=== PATIENT | male | born 1955 | race Caucasian/White ===

== ENCOUNTER 2017-02-11 12:50 | Outpatient (CLI) | payer OTHER ==
--- NOTE | 2017-02-11 13:20 | RAD ---
CHEST 2 VIEWS: COMPARISON: 02/09/16 study. HISTORY: Dyspnea. FINDINGS: Heart size is within normal limits. Mediastinal structures are unremarkable. The left upper lobe pl eural and parenchymal changes are stable. No acute process is seen. IMPRESSION: Stable exam. POS: [facility]
== END 2017-02-11 12:51 | disposition home or self-care (01) ==
LOC: RAD 12:50
PROVIDERS: ATTEND Internal Medicine Pulmonary Disease
DX: R06.00 Dyspnea, unspecified (principal)
CPT/HCPCS: 71020

== ENCOUNTER 2017-08-11 10:00 | Outpatient (CLI) | payer OTHER ==
--- NOTE | 2017-08-11 11:46 | RAD ---
TWO VIEWS CHEST: Comparison: 02-11-17 History: Dyspnea and left sided chest pain. FINDINGS: Two views of the chest shows a normal sized cardiomediastinal silhouette. There is persistent opacity in the left apex. There is no evidence of consolidation or pleural effusion. IMPRESSION: Left upper lobe scarring without acute cardiopulmonary process. POS: [facility]
== END 2017-08-11 10:01 | disposition home or self-care (01) ==
LOC: RAD 10:00
PROVIDERS: ATTEND Internal Medicine Pulmonary Disease
DX: R06.00 Dyspnea, unspecified (principal); J98.4 Other disorders of lung
CPT/HCPCS: 71046

== ENCOUNTER 2017-09-26 08:42 | Outpatient (CLI) | payer OTHER ==
--- NOTE | 2017-09-26 10:41 | ULT ---
HEPATIC DOPPLER ULTRASOUND: HISTORY: Hepatitis C. COMPARISON: None. TECHNIQUE: Tidwell scale, color flow, Doppler imaging with spectral waveform analysis was performed of the liver. FINDINGS: The visualized aorta has an overall normal caliber. There is appropriate patency and directional georgina w. Inferior vena cava is patent. Appropriate flow. The head and proximal pancreatic body have a normal echotexture. The remainder of the pancreas is ob scured by bowel gas. Hepatic parenchyma has a normal echotexture. No hepatic masses or intrahepatic biliary dilatation. The contour of the hepatic margin is maintained. Right hepatic lobe measures 15.4 cm. Gallbladder is unremarkable. No sonographic evidence of cholelithiasis, gallbladder wall thickening, or pericholecystic fluid. Negative Lilly's sign. Common bile duct diameter is 0.6 cm. Spleen measures 12.2 cm in maximum dimension. HEPATIC DOPPLER: There is patency and appropriate directional flow in the right portal vein, left portal vein, main po rtal vein, right hepatic vein, middle hepatic vein, left hepatic vein, and hepatic artery. The splen ic vein and artery are patent. IMPRESSION: 1. Normal hepatic Doppler. 2. Atherosclerosis of the aorta without evidence of dilatation. 3. Normal hepatic parenchymal echotexture. POS: [facility]
== END 2017-09-26 08:43 | disposition home or self-care (01) ==
LOC: ULT 08:42
PROVIDERS: ATTEND Internal Medicine Gastroenterology
DX: B18.2 Chronic viral hepatitis C (principal); K59.03 Drug induced constipation; D64.89 Other specified anemias; R63.4 Abnormal weight loss; I70.0 Atherosclerosis of aorta
CPT/HCPCS: 76705

== ENCOUNTER 2018-04-18 11:19 | Emergency (ER) | payer MEDICARE, MEDICAID ==
[2018-04-18 12:13] LABS: #Basophils 0.1 thou/uL (0.0-0.2); #Eosinphils 0.4 thou/uL (0.0-0.7); #Lymphocytes 1.8 thou/uL (1.20-3.40); #Monocytes 1.2 thou/uL (0.11-0.59); #Neutrophils 9.6 thou/uL (1.40-6.50); %Basophils 0.9 % (0.0-1.0); %Eosinophils 3.1 % (0.0-10.0); %Lymphocytes 13.5 % (21.0-51.0); %Neutrophils 73.5 % (42.0-75.0); Hemoglobin 13.4 g/dL (14.0-18.0); Mean Corpuscular HGB CONC 30.7 g/dL (32.0-36.0); Mean Corpuscular Hemoglobin 29.2 pg (27.0-31.0); Mean Corpuscular Volume 95.3 fL (78.0-98.0); Mean Platelet Volume 6.3 fL (7.4-10.4); Platelet Count 445 thou/uL (130-400); White Blood Cell (WBC) Count 13.1 thou/uL (4.8-10.8)
[2018-04-18 12:35] LABS: ALT (SGPT) 43 U/L (8-55); AST (SGOT) 29 U/L (5-34); Albumin 3.5 g/dL (3.4-4.8); Alkaline Phosphatase 85 U/L (40-150); Anion Gap 17 mmol/L (10-20); BUN (Urea Nitrogen) 9 mg/dL (8.4-25.7); Bilirubin, Total 0.5 mg/dL (0.2-1.2); Calc. Creatinine Clearance 0 mL/min (70-130); Calcium 9.7 mg/dL (7.8-10.44); Carbon Dioxide 25 mmol/L (23-31); Chloride 98 mmol/L (98-107); Estimated GFR-MDRD Greater than 90; Globulin 4.6 g/dL (2.4-3.5); Glucose 91 mg/dL (80-115); Lipase 15 U/L (8-78); Potassium 4.5 mmol/L (3.5-5.1); Protein, Total 8.1 g/dL (5.8-8.1); Sodium 135 mmol/L (136-145)
== END 2018-04-18 13:12 | disposition left against medical advice (07) ==
LOC: ERS 11:19
DX: Z53.21 Procedure and treatment not carried out due to patient leaving prior to being seen by health care provider (principal)
CPT/HCPCS: 36415; 80053; 83690; 85025

== ENCOUNTER 2018-09-27 11:26 | Outpatient (CLI) | payer MEDICARE, MEDICAID ==
--- NOTE | 2018-09-27 13:24 | RAD ---
TWO VIEW CHEST: 09/27/18 HISTORY: Dyspnea. COMPARISON: 08/11/17 Lungs again show hyperexpansion. There is new parenchymal opacities throughout the right lung when co mpared to the prior study. There is a focal nodular-like density in the right upper lung medially. Th ere are patchy areas of confluent infiltrate in the right mid and lower lung worrisome for acute infi ltrate. The focal opacity in the left apical region was present previously and is stable. IMPRESSION: There are new opacities throughout the right lung when compared to prior study. Focal nodular area in the right upper lobe. Close follow-up is recommended to ensure clearing. Code T POS: OFF
== END 2018-09-27 11:27 | disposition home or self-care (01) ==
LOC: RAD 11:26
PROVIDERS: ATTEND Internal Medicine Pulmonary Disease
DX: R06.00 Dyspnea, unspecified (principal); R91.8 Other nonspecific abnormal finding of lung field
CPT/HCPCS: 71046

== ENCOUNTER 2018-11-14 10:29 | Outpatient (CLI) | payer MEDICARE, MEDICAID ==
--- NOTE | 2018-11-14 11:23 | RAD ---
Exam: Chest 2 views COMPARISON: 09/27/2018 HISTORY: Dyspnea FINDINGS: Normal cardiac silhouette. Chronic changes in the lung parenchyma. Multiple pleural-based d ensities. Lungs are hyperinflated. No pneumothorax. No acute osseous abnormalities IMPRESSION: Chronic changes.
== END 2018-11-14 10:30 | disposition home or self-care (01) ==
LOC: RAD 10:29
PROVIDERS: ATTEND Internal Medicine Pulmonary Disease
DX: R06.00 Dyspnea, unspecified (principal)
CPT/HCPCS: 71046

== ENCOUNTER 2018-11-19 17:52 | Inpatient (IN) | payer MEDICARE, MEDICAID ==
[2018-11-19] MEDS ORDERED: Magnesium 2 GM/50 ML BAG (IN WATER) ONE (18:04)
[2018-11-19] MEDS ORDERED: Albuterol Sulfate 2.5 mg/3 ml Neb ONE (18:10)
--- NOTE | 2018-11-19 18:55 | RAD ---
CHEST ONE VIEW: HISTORY: Dyspnea. COMPARISON: 11/14/2018 FINDINGS: Stable cardiac silhouette. Pulmonary vessels are upper normal. Costophrenic angles are clear. Ther e are diffuse lung parenchymal changes, likely representing areas of fibrosis. A superimposed infilt rate cannot be excluded. Presumed pleural-based calcification in the left lung apex. There is a sta ble density in the right lung apex. This is also presumed to be pleural-based. No pneumothorax or osseous abnormalities. IMPRESSION: Presumed chronic change in the lung parenchyma. Superimposed infiltrate cannot be excluded. Continu ed surveillance to ensure resolution is recommended. POS: [facility]
[2018-11-19 18:56] LABS: #Basophils 0.1 thou/uL (0.0-0.2); #Eosinphils 0.2 thou/uL (0.0-0.7); #Lymphocytes 1.6 thou/uL (1.20-3.40); #Neutrophils 10.1 thou/uL (1.40-6.50); %Basophils 0.5 % (0.0-1.0); %Eosinophils 1.4 % (0.0-10.0); %Lymphocytes 12.2 % (21.0-51.0); %Monocytes 7.4 % (0.0-10.0); %Neutrophils 78.5 % (42.0-75.0); Mean Corpuscular HGB CONC 31.8 g/dL (32.0-36.0); Mean Corpuscular Hemoglobin 29.9 pg (27.0-31.0); Platelet Count 276 thou/uL (130-400); RBC Distribution Width 13.8 % (11.5-14.5); Red Blood Cell (RBC) Count 4.33 mill/uL (4.70-6.10); White Blood Cell (WBC) Count 12.9 thou/uL (4.8-10.8)
[2018-11-19] MEDS ORDERED: cefTRIAXone\\ROCEPHIN 2 GM VIAL ONE (19:08)
[2018-11-19] MEDS ORDERED: Sodium Chloride 0.9% 0 ML ONE (19:08)
[2018-11-19 19:17] LABS: ALT (SGPT) 31 U/L (8-55); AST (SGOT) 26 U/L (5-34); Albumin 3.2 g/dL (3.4-4.8); Alkaline Phosphatase 91 U/L (40-150); Anion Gap 11 mmol/L (10-20); BUN (Urea Nitrogen) 16 mg/dL (8.4-25.7); Bilirubin, Total 0.2 mg/dL (0.2-1.2); Calc. Creatinine Clearance 0 mL/min (70-130); Calcium 7.6 mg/dL (7.8-10.44); Carbon Dioxide 25 mmol/L (23-31); Chloride 107 mmol/L (98-107); Estimated GFR-MDRD Greater than 90; Globulin 2.6 g/dL (2.4-3.5); Glucose 149 mg/dL (80-115); Magnesium 2.2 mg/dL (1.6-2.6); Potassium 4.2 mmol/L (3.5-5.1); Protein, Total 5.8 g/dL (5.8-8.1); Sodium 139 mmol/L (136-145)
[2018-11-19 19:38] LABS: CKMB 3.5 ng/mL (0-6.6)
[2018-11-19] MEDS ORDERED: Calcium Gluc 4.6 MEQ/10 ML (100 MG/ML) ONE (20:01)
[2018-11-19] MEDS ORDERED: Aspirin Chewable 81 MG TAB ONE (20:04)
[2018-11-19] MEDS ORDERED: Sodium Chloride 0.9% 100 ML ONE (20:04)
[2018-11-19] MEDS ORDERED: Azithromycin 500 MG VIAL ONE (20:04)
[2018-11-19] MEDS ORDERED: Ondansetron PF 4 MG/2 ML Vial IVP PRN (21:34)
[2018-11-19] MEDS ORDERED: Ondansetron ODT 4 MG TAB SL PRN (21:34)
[2018-11-19] MEDS ORDERED: Albuterol Sulfate 2.5 mg/3 ml Neb NEB PRN (21:35)
[2018-11-19 22:14] LABS: Troponin I 0.553 ng/mL (< 0.028)
[2018-11-19 22:37] VITALS: BMI 18.0
--- NOTE | 2018-11-20 00:18 | HP ---
PRIMARY CARE DOCTOR: Stepan Egan MD. CODE STATUS: Full code. TIME OF EVALUATION: 1100 p.m. CHIEF COMPLAINT: Shortness of breath. HISTORY OF PRESENT ILLNESS: This is a 63 years old male patient with past medical history of COPD, came to the hospital after having severe gradually worsening shortness of breath and chest tightness with no clear triggers. No alleviating factors. He reported he has DuoNebs at home and he was taking, but he did not improve. Reportedly, he has been having some recurrent pneumonia since . He has been followed by Dr. Omalley as outpatient and he reported the symptoms been going back. He is still smoking and the symptoms were severe with no clear triggers. No alleviating factors. REVIEW OF SYSTEMS: All systems were reviewed and negative except for the findings mentioned above. No other systems have positive symptoms. PAST MEDICAL HISTORY: Positive for hepatitis C, chronic back pain, chronic obstructive pulmonary disease, asthma and emphysema. PAST SURGICAL HISTORY: Back surgery x2, lobectomy of the right lung removed for a benign groin mass. PSYCHIATRIC HISTORY: No previous psych history. SOCIAL HISTORY: No drug use. The patient continues to smoke 4-5 cigarettes a day. Lives at home with family. FAMILY HISTORY: Reviewed, noncontributory to current presentation. KNOWN ALLERGIES: No known drug allergies reported. MEDICATION: Prednisone, omeprazole, montelukast, ipratropium/albuterol, fentanyl, Symbicort, atorvastatin, and ramipril. PHYSICAL EXAMINATION: VITAL SIGNS: On presentation, blood pressure 129/76, heart rate 121, respiratory rate was 22, temperature 97.9, pain was 7/10 and oxygen saturation was 100% on 4 L. As noted, the patient does not use oxygen at home. GENERAL: The patient is alert, in mild distress due to respiratory distress, but able to keep vital signs within normal limits. HEENT: Eyes, normal conjunctiva. Moist oral mucosa. Anicteric. No JVD. RESPIRATORY: The patient has bilateral wheezing that were audible with no rales. The patient has bilateral sounds and symmetric expansion, but is decreased bilaterally. CARDIOVASCULAR: The patient is tachycardic. Regular rhythm. No murmurs. No gallop. No edema. ABDOMEN: Soft. Normal bowel sounds. EXTREMITIES: Symmetrical. Baseline range of motion and strength. SKIN: Warm, intact. No pallor. No rash. No redness. Capillary refill seems to be intact. NEURO: No evidence of any new focal weakness. Cranial nerves seems to be intact. PSYCH: The patient is in good mood. No anxiety. Optimal judgment. DIAGNOSTIC STUDIES: EKG was reviewed. The patient has sinus tachycardia at the rate of 108 with no evidence of any acute ischemic events. No rhythm problems. Chest x-ray was reviewed. The patient has chronic changes in the lung parenchyma, superimposed infiltrate cannot be excluded. Continued surveillance until resolution is recommended. LABORATORY DATA: Reviewed. The patient has white count of 12.9, hemoglobin 13, MCV 94, platelet count 276, neutrophils 78.5, lymphocytes 12.2. Sodium 139, potassium 4.2, chloride 107, carbon dioxide 25, anion gap 11, BUN 16, creatinine 0.71, GFR greater than 90, glucose 149, lactic acid 1.9, calcium 7.6, magnesium 2.2, total bilirubin 0.2, AST 26, ALT 31, alkaline phosphatase 91. Troponin initial was 0.166, second one 0.553. Beta-natriuretic peptide 51. Serum total protein 5.8, albumin 3.2. ASSESSMENT AND PLAN: The patient will be placed in the hospital with following medical problems: 1. Chronic obstructive pulmonary disease exacerbation. The patient will be placed on nebs, antibiotics and steroids. We will keep him on supplemental oxygen. The patient needs 3 L to keep saturation above 90%. 2. Acute hypoxic respiratory failure. The patient is in nasal cannula with saturation over 90. This usually is noted at baseline as per patient report. This is likely due to underlying chronic obstructive pulmonary disease and possible over-imposed infection or bronchopneumonia. 3. Positive troponin. The patient has troponin 0.166, second one 0.553. This could be a [id number] myocardial infarction type 2. We will consult Cardiology for any further recommendation. We will trend troponins and keep him on tele. 4. Hyperglycemia likely secondary to steroids use. We will monitor. Need for any acute intervention at this point. 5. Possibility for sepsis. The patient has leukocytosis. The patient has increased heart rate and respiratory rate with respiratory failures may be some organ dysfunction from sepsis and possible source might be over-imposed bronchopneumonia on top of chronic obstructive pulmonary disease exacerbation. 6. Deep venous thrombosis prophylaxis. 7. History of hepatitis C. This is chronic, seems very stable. Job ID: [id number]
[2018-11-20] MEDS: methylPREDNISolone Sod Succ 40 MG VIAL IVP SCH ×5 (01:00→23:33)
[2018-11-20 01:10] LABS: Troponin I 0.721 ng/mL (< 0.028)
[2018-11-20] MEDS ORDERED: Non-Formulary Item 1 EACH (Omeprazole [Omeprazole] 40 MG) PO SCH (09:00)
[2018-11-20] MEDS ORDERED: fentaNYL 50 mcg/hour Patch TD SCH (09:00)
[2018-11-20] MEDS: Atorvastatin Calcium 40 MG TAB PO SCH (10:11)
[2018-11-20] MEDS ORDERED: Aspirin 81 mg Enteric Coated Tablet PO SCH (15:00)
[2018-11-20] MEDS ORDERED: cefTRIAXone\\ROCEPHIN 1 GM in Sodium Chloride 0.9% 100 ML IVPB SCH (18:00)
[2018-11-20 19:15] LABS: Amphetamine Not Detected (NotDetected); Barbiturates Screen Not Detected (NotDetected); Benzodiazepine Screen Not Detected (NotDetected); Cocaine Metabolite Screen Not Detected (NotDetected); Medtox Control Line Valid? VALID (VALID); Medtox Reader # READER 4; Methadone Not Detected (NotDetected); Methamphetamine Not Detected (NotDetected); Opiate Screen Not Detected (NotDetected); Oxycodone Screen Not Detected (NotDetected); Phencyclidine (PCP) Not Detected (NotDetected); THC/Cannabinoid Screen Not Detected (NotDetected); Tricyclic Screen Detected (NotDetected)
--- NOTE | 2018-11-20 19:50 | CON ---
DATE OF CONSULTATION: HISTORY OF PRESENT ILLNESS: The patient is a pleasant 63-year-old gentleman, who presents with increasing dyspnea and fevers. The patient has a known history of mild coronary artery disease. He had previously undergone a cardiac catheterization in 2012. He was found to have normal left ventricular systolic function with a 40% LAD lesion. Most recently, the patient underwent a repeat cardiac catheterization several weeks ago. He was found to have only a 20% mid LAD lesion. The patient was in usual state of health when he presented with increasing fever and chills. The patient denied having any chest discomfort. PAST MEDICAL HISTORY: 1. Coronary artery disease. 2. COPD. 3. Hepatitis C. PAST SURGICAL HISTORY: Back surgery and lobectomy. SOCIAL HISTORY: Long history of tobacco abuse. FAMILY HISTORY: ALLERGIES: NO KNOWN DRUG ALLERGIES. MEDICATIONS: See nursing list. REVIEW OF SYSTEMS: Ten-point system otherwise unremarkable. PHYSICAL EXAMINATION: GENERAL: This is a thin gentleman, in mild distress. VITAL SIGNS: Blood pressure 132/78. NECK: No jugular venous distention. LUNGS: Have coarse breath sounds bilateral. HEART: Regular rate and rhythm. Normal S1, S2. ABDOMEN: Nondistended. EXTREMITIES: No edema. LABORATORY RESULTS: Revealed him to have a sodium 139, potassium 4.2, chloride 107, bicarbonate 25, BUN 16, creatinine 0.71, glucose 149. Troponin was 0.721. BNP was 51. White blood cell count 12.9, hemoglobin 13.1, hematocrit 40.7, platelets are 276. IMAGING STUDIES: EKG revealed him to have sinus tachycardia, otherwise normal ECG. IMPRESSION: 1. Chronic obstructive pulmonary disease. 2. Type 2 myocardial infarction. 3. Coronary artery disease, mild. 4. Tobacco abuse. This gentleman presents with a chronic obstructive pulmonary disease exacerbation. From a cardiac standpoint, he has a mild elevation in his troponin level, most likely secondary to demand ischemia. He underwent a recent cath, revealed mild CAD. We will restart the patient on aspirin. We will follow this patient with you through his hospitalization. Job ID: [id number] MTDD
[2018-11-20] MEDS ORDERED: Azithromycin 500 MG in Sodium Chloride 0.9% 250 ML 250 ML IVPB SCH (20:00)
--- NOTE | 2018-11-20 22:44 | PDOC.HOSPP ---
- Subjective Subjective: Feels about the same as he did when he arrived. Says the nebs tend to make him feel tighter immediately after use. Still has cough. He does feel better when he is wearing the oxygen, but not wearing routinely. - Objective Vital Signs & Weight: Vital Signs (12 hours) Temp Pulse Resp BP Pulse Ox 11/20/18 20:00 97.6 F 115 H 18 114/70 94 L 11/20/18 18:51 107 H 20 97 11/20/18 15:10 97.8 F 110 H 17 137/75 95 11/20/18 13:54 100 18 95 11/20/18 11:38 98.1 F 109 H 18 137/77 95 Weight Admit Weight 122 lb Weight 122 lb I&O: 11/19/18 11/20/18 11/21/18 06:59 06:59 06:59 Intake Total 720 Balance 720 Result Diagrams: 11/19/18 18:47 11/19/18 18:47 ROS - Medication Medications: Active Medications Generic Name Dose Route Start Last Admin Trade Name Montserrat PRN Reason Stop Dose Admin Albuterol/Ipratropium 3 ml 11/20/18 02:30 11/20/18 22:06 Duoneb NEB 3 ml [id number] VALENCIA Administration Atorvastatin Calcium 80 mg 11/20/18 09:00 11/20/18 10:11 Lipitor PO 80 mg DAILY VALENCIA Administration Fentanyl 50 mcg 11/20/18 09:00 11/20/18 10:12 Duragesic TD 50 mcg Q3DAYS VALENCIA Administration Azithromycin 500 mg/ Sodium 250 mls @ 250 mls/hr 11/20/18 20:00 11/20/18 20: 26 Chloride IVPB 250 mls Q24HR VALENCIA Administration Ceftriaxone Sodium 1 gm/ 100 mls @ 200 mls/hr 11/20/18 18:00 11/20/18 17:52 Sodium Chloride IVPB 100 mls Q24HR VALENCIA Administration Methylprednisolone Sodium Succinate 40 mg 11/19/18 23:59 11/20/18 17:51 Solu-Medrol IVP 40 mg Q6HR VALENCIA Administration Pantoprazole Sodium 40 mg 11/20/18 09:00 11/20/18 10:11 Protonix PO 40 mg DAILY VALENCIA Administration Ramipril 2.5 mg 11/20/18 09:00 11/20/18 10:11 Altace PO 2.5 mg DAILY VALENCIA Administration Sodium Chloride 10 ml 11/20/18 09:00 11/20/18 20:27 Flush - Normal Saline IVF 10 ml Q12HR VALENCIA Administration - Exam NAD, awake alert Neck: supple Heart: RRR, no murmur Respiratory - other findings: Diffuse, harsh rales and wheezes bilaterally, R>L Gastrointestinal: soft, non-tender, non-distended, normal bowel sounds, no palpable masses, no hepatomegaly, no splenomegaly, no bruit Extremities: no cyanosis, no clubbing, no edema Skin: normal turgor, no lesions, no rashes Neurological: CN's grossly intact, normal sensation to touch, no weakness, no focal deficits, no new deficit Musculoskeletal: normal tone, normal strength, no muscle wasting Psychiatric: normal affect, normal behavior, A&O x 3 Hosp A/P (1) COPD exacerbation Code(s): J44.1 - CHRONIC OBSTRUCTIVE PULMONARY DISEASE W (ACUTE) EXACERBATION Status: Acute (2) [place] (myocardial infarction) Code(s): I21.9 - ACUTE MYOCARDIAL INFARCTION, UNSPECIFIED Status: Acute (3) Demand ischemia of myocardium Code(s): I24.8 - OTHER FORMS OF ACUTE ISCHEMIC HEART DISEASE Status: Acute (4) History of lobectomy of lung Code(s): Z90.2 - ACQUIRED ABSENCE OF LUNG [PART OF] Status: Acute - Plan Continue with abx, steroids, nebs. Wear oxygen as needed. Consult Pulm (followed by Lyssa). May need CT chest. Evidence for pulm fibrosis on CXR. Cannot rule out pneumonia. Continue ABX.
--- NOTE | 2018-11-20 23:59 | CON ---
DATE OF CONSULTATION: HISTORY OF PRESENT ILLNESS: Mr. Wood is a 63-year-old male with COPD, but continues to smoke. He was seen by Dr. Omalley last week in the office with complaints of shortness of breath. Subsequently, he presented last night and was admitted to the hospital with chronic obstructive pulmonary disease exacerbation. He denies fever, chills, or sweats. He says he never has gotten over the pneumonia at the beginning of the year, but also admits he continues to smoke. PAST MEDICAL HISTORY: Remarkable for; 1. Hepatitis C. 2. Chronic pain. 3. History of back surgery. 4. History of lobectomy. SOCIAL HISTORY: He smokes a quarter to half pack a day. He is not a daily drinker. Does not use drugs. FAMILY HISTORY: Negative for lung disease in early age. MEDICATIONS: Prior to admission, he is on; 1. Protonix. 2. Prednisone. 3. Singulair. 4. Ipratropium/albuterol nebulized treatments. 5. Fentanyl patch. 6. Symbicort. 7. Atorvastatin. 8. Ramipril. REVIEW OF SYSTEMS: 10-point otherwise negative. PHYSICAL EXAMINATION: VITAL SIGNS: He is afebrile. Heart rate is 100, respiratory rate is 18, oximetry is 95% on room air, blood pressure 137/77. HEENT: Pupils are equal. Sclerae are anicteric. NECK: Supple. No lymphadenopathy. LUNGS: Remarkable for diffuse wheezes. HEART: Regular rhythm. S1, S2 are normal. ABDOMEN: Soft and nontender. EXTREMITIES: Without clubbing, cyanosis, or edema. DIAGNOSTIC DATA: Chest radiograph shows stable changes suggestive of past granulomatous disease with some pleural scarring. IMPRESSION: Chronic obstructive pulmonary disease exacerbation associated with ongoing tobacco use. He is counseled about ongoing smoking. I agree with current care. We will follow along with him. I will notify Dr. Omalley of his admission in the morning. 50 minute consult with 50% of time spent on unit coordinating care. Job ID: [id number] MTDD
[2018-11-21] MEDS: methylPREDNISolone Sod Succ 40 MG VIAL IVP SCH (05:32)
[2018-11-21] MEDS: Aspirin 81 mg Enteric Coated Tablet PO SCH (08:45)
[2018-11-21] MEDS: Atorvastatin Calcium 40 MG TAB PO SCH (08:45)
--- NOTE | 2018-11-21 10:22 | PDOC.HOSPP ---
- Subjective Encounter Date: 11/21/18 Encounter Time: 10:19 Subjective: A little better, but still wheezing. Minimal cough. - Objective Vital Signs & Weight: Vital Signs (12 hours) Temp Pulse Resp BP Pulse Ox 11/21/18 07:34 97.6 F 92 20 129/78 100 11/21/18 07:10 97 20 97 11/21/18 04:00 97.5 F L 102 H 20 133/75 94 L 11/21/18 01:49 101 H 18 96 Weight Admit Weight 122 lb Weight 122 lb I&O: 11/20/18 11/21/18 11/22/18 06:59 06:59 06:59 Intake Total 720 Balance 720 Result Diagrams: 11/19/18 18:47 11/19/18 18:47 Hospitalist ROS - Medication Medications: Active Medications Generic Name Dose Route Start Last Admin Trade Name Freq PRN Reason Stop Dose Admin Albuterol/Ipratropium 3 ml 11/20/18 02:30 11/21/18 07:10 Duoneb NEB 3 ml [id number] VALENCIA Administration Aspirin 81 mg 11/21/18 09:00 11/21/18 08:45 Ecotrin PO 81 mg DAILY VALENCIA Administration Atorvastatin Calcium 80 mg 11/20/18 09:00 11/21/18 08:45 Lipitor PO 80 mg DAILY VALENCIA Administration Fentanyl 50 mcg 11/20/18 09:00 11/20/18 10:12 Duragesic TD 50 mcg Q3DAYS VALENCIA Administration Pantoprazole Sodium 40 mg 11/20/18 09:00 11/21/18 08:45 Protonix PO 40 mg DAILY VALENCIA Administration Ramipril 2.5 mg 11/20/18 09:00 11/21/18 08:44 Altace PO 2.5 mg DAILY VALENCIA Administration Sodium Chloride 10 ml 11/20/18 09:00 11/21/18 08:45 Flush - Normal Saline IVF 10 ml Q12HR VALENCIA Administration - Exam General Appearance: NAD, awake alert Heart: RRR, no murmur, no gallops, no rubs, normal peripheral pulses Respiratory: no rales, rales, wheezes Gastrointestinal: soft, non-tender, non-distended, normal bowel sounds, no palpable masses, no hepatomegaly, no splenomegaly, no bruit Skin: normal turgor, no lesions, no rashes Musculoskeletal: normal tone, normal strength, no muscle wasting Psychiatric: normal affect, normal behavior, A&O x 3 Hosp A/P (1) COPD exacerbation Code(s): J44.1 - CHRONIC OBSTRUCTIVE PULMONARY DISEASE W (ACUTE) EXACERBATION Status: Acute (2) [place] (myocardial infarction) Code(s): I21.9 - ACUTE MYOCARDIAL INFARCTION, UNSPECIFIED Status: Acute Qualifiers: Myocardial infarction type: type 2 Qualified Code(s): I21.A1 - Myocardial infarction type 2 (3) Demand ischemia of myocardium Code(s): I24.8 - OTHER FORMS OF ACUTE ISCHEMIC HEART DISEASE Status: Acute (4) History of lobectomy of lung Code(s): Z90.2 - ACQUIRED ABSENCE OF LUNG [PART OF] Status: Acute (5) Pseudomonas aeruginosa infection Code(s): A49.8 - OTHER BACTERIAL INFECTIONS OF UNSPECIFIED SITE Status: Acute - Plan Continue with abx, steroids, nebs. Wear oxygen as needed. See if he qualifies for home O2. Consult Pulm (followed by Lyssa) appreciated. Dr. Omalley reported pseudomonas on sputum cx from his office. Changed to po Cipro and po steroids. Will ambulate patient today. Anticipate discharge in am with po steroids, abx and home oxygen if he qualifies.
--- NOTE | 2018-11-21 10:35 | PRG ---
DATE OF SERVICE: 11/21/2018 SUBJECTIVE: Ernesto Wood is doing better this morning. He is less short of breath, less coughing. His sputum is still green. Outpatient sputum study revealed Pseudomonas sensitive to pretty much all the antibiotic. OBJECTIVE: VITAL SIGNS: Temperature 97, pulse 92, respiratory rate 20, sats 100% on 2 L, blood pressure _120\74 CHEST: Bilateral wheezing and rhonchi. CARDIAC: Normal S1 and S2. No gallops. ABDOMEN: No masses. LABORATORY DATA: His labs showed his white count is only 12,000. His chemistry profile is otherwise unremarkable. BNP was normal. IMAGING STUDIES: X-ray shows stable findings, bilateral infiltrates. IMP copd//chronic bronchitis,// bronchiectasis, exacerbation. PLAN: I switched him over to p.o. Cipro, p.o. prednisone. Disposition home over the next 24-48 hours. Job ID: [id number] MTDD
--- NOTE | 2018-11-21 12:30 | PQF ---
DATE: 11-21-18 ATTN: DR. DIAN HANNON Please exercise your independent, professional judgment in responding to the clarification form. Clinical indicators are provided on the bottom of this form for your review Please check appropriate box(s) to clarify if the following diagnosis has been ruled in or ruled out: SEPSIS [ ] Ruled in diagnosis [ ] Continue to treat [ ] Resolved [ x ] Ruled out diagnosis [ ] Other diagnosis [ ] Unable to determine In addition, please specify: Present on Admission (POA): [ ] Yes [ ] No [ ] Unable to determine For continuity of documentation, please document condition throughout progress notes and discharge summary. Thank You. CLINICAL INDICATORS - SIGNS / SYMPTOMS / LABS: ER DX 11-19-18: COPD EXACERBATION WITH HYPOXIA, ELEVATED TROPONIN, HYPOCALCEMIA , PNA H&P: 11-19-18: COPD EXACERBATION, ACUTE HYPOXIC RESPIRATORY FAILURE, POSSIBILITY FOR SEPSIS, THE PATIENT HAS INCREASED HEART RATE AND RESPIRATORY RATE WITH RESPIRATORY FAILURES MAY BE SOME ORGAN DYSFUNCTION FROM SEPSIS AND POSSIBLE SOURCE MIGHT BE OVER-IMPOSED BRONCHOPNEUMONIA ON TOP OF COPD EXACERBATION WBC 11-19-18: 12.9 PULSE: 11-19-18: 106, 107, 102, 101, 109, 110, 107, 115 ER NOTE 11-19-18: AZITHROMYCIN IV, NS IVF, ROCEPHIN IV RISK FACTORS: ER NOTE 11-19-18: SOB, HX OF COPD, RECENT ABX FOR PNA, REPORTS GREEN HEAVY SPUTUM, COUGH, HX OF HEP C, ASTHMA, COPD, SMOKER TREATMENTS: ER NOTE 11-19-18: AZITHROMYCIN IV, NS IVF, ROCEPHIN IV (This form is maintained as a part of the permanent medical record) 2014 [employer] All Rights Reserved [email or web address] Office: [phone] [facility]
--- NOTE | 2018-11-21 12:42 | PQF ---
DATE: 11-21-18 ATTN: DR. DIAN HANNON Please exercise your independent, professional judgment in responding to the clarification form. Clinical indicators are provided on the bottom of this form for your review Please check appropriate box(s) to clarify if the following diagnosis has been ruled in or ruled out: PNEUMONIA [ ] Ruled in diagnosis [ ] Continue to treat [ ] Resolved [ x] Ruled out diagnosis [ ] Other diagnosis [ ] Unable to determine In addition, please specify: Present on Admission (POA): [ ] Yes [ ] No [ ] Unable to determine For continuity of documentation, please document condition throughout progress notes and discharge summary. Thank You. CLINICAL INDICATORS - SIGNS / SYMPTOMS / LABS: ER NOTE 11-19-18: COUGH, SOB, HX COPD, HAD RECENT ABX FOR PNA, PT REPORTS BLOOD TINGED SPUTUM, PT SMOKES ER DX 11-19-18: COPD EXACERBATION WITH HYPOXIA, ELEVATED TROPONIN, HYPOCALCEMIA , PNA H&P 11-19-18: LIKELY DUE TO UNDERLYING COPD AND POSSIBLE OVER-IMPOSED INFECTION OR BRONCHOPNEUMONIA, POSSIBLE SOURCE MIGHT BE OVER-IMPOSED BRONCHOPNEUMONIA ON TOP OF COPD EXACERBATION RISK FACTORS: ER NOTE 11-19-18: COUGH, SOB, HX COPD, HAD RECENT ABX FOR PNA, PT REPORTS BLOOD TINGED SPUTUM, PT SMOKES TREATMENTS: ER NOTE 11-19-18: AZITHROMYCIN IV, NS IVF, ROCEPHIN IV (This form is maintained as a part of the permanent medical record) 2014 [employer] All Rights Reserved [email or web address] Office: [phone] [facility]
[2018-11-21] MEDS: Mometasone/Formoterol 120 PUFF INHALER INH SCH (17:58)
[2018-11-21] MEDS: Cipro 250 MG TAB PO SCH (21:40)
[2018-11-22] MEDS ORDERED: Ondansetron PF 4 MG/2 ML Vial IVP PRN (02:55)
[2018-11-22] MEDS: Cipro 250 MG TAB PO SCH (06:15)
[2018-11-22] MEDS: Mometasone/Formoterol 120 PUFF INHALER INH SCH (07:26)
[2018-11-22] MEDS ORDERED: predniSONE 20 MG TAB PO SCH ×2 (08:00)
[2018-11-22 08:06] VITALS: BP 129/79; TEMP 98.4
[2018-11-22] MEDS ORDERED: FENTANYL TD SCH (09:00)
[2018-11-22] MEDS: Aspirin 81 mg Enteric Coated Tablet PO SCH (09:01)
[2018-11-22] MEDS: Atorvastatin Calcium 40 MG TAB PO SCH (09:02)
--- NOTE | 2018-11-22 09:29 | PRG ---
DATE OF SERVICE: 11/22/2018 SUBJECTIVE: This morning, he is doing better, less short of breath, less cough, less wheezing. OBJECTIVE: VITAL SIGNS: 95% saturations on room air, respiratory rate 20, temperature 98, blood pressure 129/79. CHEST: Less rhonchi, less wheezing. CARDIAC: Normal S1 and S2. No gallops. ABDOMEN: No masses. IMPRESSION: Chronic obstructive pulmonary disease exacerbation and bronchitis. PLAN: He can be discharged home with tapering dose of prednisone and antibiotics. He has all his inhalers at home and neb treatment. He can be seen in the office in several weeks. Job ID: [id number]
--- NOTE | 2018-11-23 15:03 | DIS ---
DATE OF ADMISSION: 11/19/2018 DATE OF DISCHARGE: 11/22/2018 DISCHARGE DIAGNOSES: 1. Chronic obstructive pulmonary disease exacerbation. 2. Acute hypoxic respiratory failure. 3. Type 2 myocardial infarction, demand ischemia. 4. Bronchitis with recent sputum culture prior to admission, positive for Pseudomonas aeruginosa. HISTORY OF PRESENT ILLNESS: This patient is a 63-year-old male with COPD, who presented to the hospital with shortness of breath, gradually worsening. He had recently seen Dr. Omalley in his office and had a sputum culture obtained that the patient continued to smoke on his initial presentation. The patient had some audible rales and breath sounds were decreased. He was tachycardic. Chest x-ray had some chronic changes of the lung parenchyma. White count was 12.9. Troponin was 0.166, subsequent 0.55. BNP 51. HOSPITAL COURSE: The patient was admitted to the hospital with COPD exacerbation, acute hypoxic respiratory failure. He was continued on supplemental oxygen as needed, given IV antibiotics and steroids, subsequently seen in consultation by Pulmonary Critical care initially with Dr. Medina and by Dr. Omalley who was aware of the patient and the patient's culture results have been positive for Pseudomonas. He did not feel there was evidence of pneumonia, but likely is just COPD with bronchitis, and his antibiotics were changed to p.o. Cipro. He was seen in consultation by Cardiology and felt the patient had demand ischemia from acute hypoxic respiratory failure and COPD exacerbation. No further cardiac workup was initiated. The patient was counseled extensively about smoking cessation. Ultimately, Dr. Omalley felt the patient could be treated as an outpatient and the patient was amenable. PHYSICAL EXAMINATION: On the day of discharge, VITAL SIGNS: Temperature is 98.4, pulse 88, respirations 14, O2 saturation 93% on room air, BP 129/79. HEART: Regular rate and rhythm. LUNGS: Were much improved with no significant rales noted, although his air exchange was still significantly diminished. ABDOMEN: Soft, nontender, and nondistended. EXTREMITIES: No edema. The patient was evaluated for possible home O2. However, his oxygen saturation never dropped as low as 88%. Therefore, he did not qualify. DISPOSITION: The patient is discharged to home on a regular diet. His activity is as tolerated. MEDICATIONS: He will be on Cipro 500 mg p.o. b.i.d. and prednisone 40 mg daily. He is to taper per the recommendations of the batter scaler. He will continue with, 1. Atorvastatin. 2. Ramipril. 3. Symbicort. 4. Fentanyl patch. 5. DuoNeb. 6. Singulair. 7. Omeprazole. 8. Resume prednisone 10 mg daily. Once he finishes his taper, he is to follow up with Dr. Omalley in 3 to [address] Egan in 7 days. He can return to the hospital should he have any problems prior to that time. TIME SPENT: Total time in discharge activities, greater than 50% of the time being [id number] with the patient was 32 minutes. Job ID: [id number]
--- NOTE | 2018-11-24 07:51 | PQF ---
DEVORA HEMPHILL DAVID R MD [id number] CLINICAL DOCUMENTATION CLARIFICATION FORM: POST DISCHARGE Addendum to original discharge summary date: ____ Late entry note date: __ DATE: 11-24-18 ATTN:Dr. Farzana Castillo Please exercise your independent, professional judgment in responding to the clarification form. Clinical indicators are provided on the bottom of this form for your review Can you please specify Acute hypoxic respiratory failure is ruled in or ruled out during this encounter? Please check appropriate box(s) to clarify if the following diagnosis has been ruled in or ruled out: Acute hypoxic respiratory failure [ ] Ruled in diagnosis [ ] Continue to treat [ ] Resolved [ ] Ruled out diagnosis [ ] Cannot rule out diagnosis [ ] Other diagnosis please specify: [ ] Unable to determine For continuity of documentation, please document condition throughout progress notes and discharge summary. Thank You. CLINICAL INDICATORS: HP 11/[address] Lopez having severe gradually worsening shortness of breath and chest tightness with no clear triggers HP 11/[address] Lopez PE: Oxygen saturation was 100% on 4 L HP 11/[address] Lopez The patient needs 3 L to keep saturation above 90% HP 11/[address] Lopez Acute hypoxic respiratory failure-likely due to overlying COPD and possible over imposed infection or bronchopneumonia PN 11/[address] Yanes COPD exacerbation RISK FACTOR: HP Dr. Lopez- Recurrent Pneumonia HP Dr. Lopez- COPD HP Dr. Lopez-Asthma HP Dr. Lopez-Emphysema HP Dr. Lopez- Lobectomy of right lung PN Dr. Yanes- Myocardial Infarction TREATMENTS: HP Dr. Lopez- Supplemental Oxygen JUN 02- Symbicort 1 puff JUN 02- Prednisone 10 mg (This form is maintained as a part of the permanent medical record) 2014 [employer]. All Rights Reserved [email or web address] [not provided] MTDD
== END 2018-11-22 12:36 | disposition home or self-care (01) | DRG 280 ==
LOC: ERS 17:52 → 2NO 21:04
PROVIDERS: ADMIT Hospitalist; ATTEND Hospitalist
DX: I21.A1 Myocardial infarction type 2 (principal); J96.01 Acute respiratory failure with hypoxia; J43.9 Emphysema, unspecified; F17.210 Nicotine dependence, cigarettes, uncomplicated; J47.9 Bronchiectasis, uncomplicated; R73.9 Hyperglycemia, unspecified; A49.8 Other bacterial infections of unspecified site; I25.10 Atherosclerotic heart disease of native coronary artery without angina pectoris; Z90.2 Acquired absence of lung [part of]; Z87.01 Personal history of pneumonia (recurrent); Z79.899 Other long term (current) drug therapy; Z79.52 Long term (current) use of systemic steroids; Z86.19 Personal history of other infectious and parasitic diseases
CPT/HCPCS: 36415; 71045; 80053; 80306; 82553; 83605; 83735; 83880; 84484; 85025; 87040; 93005; 94640; 94644; J0456; J0696; J2405; J2920; J3475; J3490; J7050; J7512; J7611; J7620

== ENCOUNTER 2018-11-28 07:58 | Emergency (ER) | payer MEDICARE, MEDICAID ==
[2018-11-28 08:50] LABS: Hemoglobin 14.3 g/dL (14.0-18.0); Mean Corpuscular HGB CONC 31.8 g/dL (32.0-36.0); Mean Corpuscular Hemoglobin 29.3 pg (27.0-31.0); Mean Corpuscular Volume 92.4 fL (78.0-98.0); Mean Platelet Volume 6.7 fL (7.4-10.4); Platelet Count 239 thou/uL (130-400); RBC Distribution Width 14.1 % (11.5-14.5); Red Blood Cell (RBC) Count 4.88 mill/uL (4.70-6.10); White Blood Cell (WBC) Count 20.7 thou/uL (4.8-10.8)
[2018-11-28 09:04] LABS: ALT (SGPT) 47 U/L (8-55); AST (SGOT) 31 U/L (5-34); Albumin 3.5 g/dL (3.4-4.8); Alkaline Phosphatase 102 U/L (40-150); Anion Gap 11 mmol/L (10-20); BUN (Urea Nitrogen) 27 mg/dL (8.4-25.7); Bilirubin, Total 0.4 mg/dL (0.2-1.2); Calc. Creatinine Clearance 0 mL/min (70-130); Calcium 8.4 mg/dL (7.8-10.44); Carbon Dioxide 28 mmol/L (23-31); Chloride 106 mmol/L (98-107); Estimated GFR-MDRD Greater than 90; Globulin 2.7 g/dL (2.4-3.5); Glucose 110 mg/dL (80-115); Potassium 4.3 mmol/L (3.5-5.1); Protein, Total 6.2 g/dL (5.8-8.1); Sodium 141 mmol/L (136-145)
[2018-11-28 09:11] LABS: Band 1 % (5-11); Lymphocytes 13 % (21-51); MDiff Complete? YES; Monocytes 5 % (0-10); Neutrophil 79 % (42-75); RBC Morphology Normal; Reactive Lymphocytes 2 % (0-10)
[2018-11-28 09:31] LABS: CKMB 14.9 ng/mL (0-6.6)
[2018-11-28] MEDS ORDERED: Furosemide 20 MG/2 ML VIAL ONE (09:32)
--- NOTE | 2018-11-28 10:01 | RAD ---
PORTABLE CHEST: HISTORY: Shortness of breath. COMPARISON: 11/19/2018 FINDINGS: Heart size is within normal limits. Severe chronic appearing lung changes are seen. There is some s lightly more parenchymal density within the right mid to lower lung field. This is similar to that p revious exam. Review is made of an older 09/27/2018 study and shows that these changes in the right lung are similar to the prior exam. They are slightly more prominent, as compared to a 08/11/2017 st ud. IMPRESSION: Chronic lung change. Some long-term increase in the parenchymal density in the right lung base, as d escribed above. POS: OFF
== END 2018-11-28 10:05 | disposition home or self-care (01) ==
LOC: ERS 07:58
DX: J44.1 Chronic obstructive pulmonary disease with (acute) exacerbation (principal); F17.210 Nicotine dependence, cigarettes, uncomplicated; Z79.51 Long term (current) use of inhaled steroids; Z79.899 Other long term (current) drug therapy
CPT/HCPCS: 36415; 71045; 80053; 82553; 83880; 84484; 85025; 87040; 93005; 94640; 94760; 96374; J1940; J7620

== ENCOUNTER 2019-02-07 10:09 | Outpatient (CLI) | payer MEDICARE, MEDICAID ==
--- NOTE | 2019-02-07 11:41 | RAD ---
TWO VIEWS OF THE CHEST: COMPARISON: 11/28/2018. HISTORY: Pneumonia with cough and shortness of breath for a month. FINDINGS: A single view of the chest shows a normal size cardiomediastinal silhouette. Mass-like opacity proje cts over both upper lobes. The opacity in the right apex is more prominent than on the prior exam. No pleural effusion is seen. IMPRESSION: Right upper lobe pulmonary masses. A CT of the chest with contrast is recommended for better evaluat ion. POS: [facility]
== END 2019-02-07 10:10 | disposition home or self-care (01) ==
LOC: BICRAD 10:09
PROVIDERS: ATTEND Family Medicine
DX: J44.1 Chronic obstructive pulmonary disease with (acute) exacerbation (principal); R91.8 Other nonspecific abnormal finding of lung field
CPT/HCPCS: 71046

== ENCOUNTER 2019-02-08 08:37 | Inpatient (IN) | payer MEDICARE, MEDICAID ==
[2019-02-08] MEDS ORDERED: Albuterol Sulfate 2.5 mg/0.5 ml Neb ONE (08:56)
[2019-02-08] MEDS ORDERED: Albuterol Sulfate 2.5 mg/3 ml Neb ONE (08:56)
[2019-02-08] MEDS ORDERED: Magnesium 2 GM/50 ML BAG (IN WATER) ONE (09:01)
[2019-02-08] MEDS ORDERED: methylPREDNISolone Sod Succ/PF 125 MG/2 ML VIAL ONE (09:01)
[2019-02-08 09:25] LABS: Actual Bicarbonate (HCO3a) 23.1 mEq/L (22-28); Analyzer IN Cardio ER; CO2 Tension 32.8 mmHg (35.0-45.0); Calcium, Ionized 1.15 mmol/L (1.12-1.30); Carboxyhemoglobin (COHb) 0.6 gm% (0.0-3.0); Hemoglobin (Hb) 13.3 g/dL (14.0-18.0); O2 Tension (PaO2) 149.4 mmHg (> 80.0); Potassium - ABG Lab 3.91 mmol/L (3.70-5.30); pH, Arterial 7.47 (7.35-7.45)
[2019-02-08 09:27] LABS: Hemoglobin 14.9 g/dL (14.0-18.0); Mean Corpuscular HGB CONC 31.8 g/dL (32.0-36.0); Mean Corpuscular Hemoglobin 29.8 pg (27.0-31.0); Mean Corpuscular Volume 93.9 fL (78.0-98.0); Mean Platelet Volume 6.7 fL (7.4-10.4); Platelet Count 345 thou/uL (130-400); RBC Distribution Width 15.7 % (11.5-14.5); Red Blood Cell (RBC) Count 4.98 mill/uL (4.70-6.10); White Blood Cell (WBC) Count 21.7 thou/uL (4.8-10.8)
[2019-02-08 09:27] LABS: Puncture Site RRA
--- NOTE | 2019-02-08 09:28 | RAD ---
Portable frontal chest radiograph: 02/08/2019 COMPARISON: 02/07/2019 HISTORY: Difficulty breathing, pneumonia, respiratory distress FINDINGS: There appears to be a cavitary mass in the right lung apex measuring approximately 3.8 cm i n transverse dimension. Nonspecific areas of parenchymal nodularity are suspected within the left lung apex as well, measuring up to 1.1 cm, similar when compared to studies dating back to 02/11/2017 . There is increased linear interstitial density and pulmonary hyperinflation suggesting COPD. Postoperative clips are noted in the right perihilar region. There is subtle reticulonodular density in the right perihilar region/right lung base, similar when c ompared to 11/28/2018. This may signify a atypical infectious pneumonitis. IMPRESSION: Cavitary lesion in the right lung apex which may be related to cavitary infectious proces s, including tuberculosis. Cavitary malignancy is a possibility. Reticulonodular density in right lung base, suspicious for atypical infectious pneumonitis. Short-term follow-up imaging following treatment is advised to document resolution. CT examination of the chest may be beneficial as well. Dr. Costa made aware at 9:25 AM 02/08/2019
[2019-02-08 09:42] LABS: Band 2 % (5-11); Lymphocytes 12 % (21-51); MDiff Complete? YES; Metamyelocyte 2 % (0-0); Monocytes 4 % (0-10); Myelocyte 1 % (0-0); Neutrophil 78 % (42-75); Platelet Morphology Comment Appears Adequate; RBC Morphology Normal; Reactive Lymphocytes 1 % (0-10)
[2019-02-08 09:51] LABS: ALT (SGPT) 33 U/L (8-55); AST (SGOT) 23 U/L (5-34); Albumin 4.1 g/dL (3.4-4.8); Alkaline Phosphatase 90 U/L (40-110); Anion Gap 12 mmol/L (10-20); BUN (Urea Nitrogen) 13 mg/dL (8.4-25.7); Bilirubin, Total 0.4 mg/dL (0.2-1.2); Calc. Creatinine Clearance 0 mL/min (70-130); Calcium 9.2 mg/dL (7.8-10.44); Carbon Dioxide 27 mmol/L (23-31); Chloride 104 mmol/L (98-107); Estimated GFR-MDRD Greater than 90; Globulin 3.9 g/dL (2.4-3.5); Glucose 87 mg/dL (80-115); Potassium 4.2 mmol/L (3.5-5.1); Sodium 139 mmol/L (136-145)
--- NOTE | 2019-02-08 11:00 | CT ---
CT PULMONARY ANGIOGRAM WITH IV CONTRAST AND 3D POSTPROCESSING: Date: 02/08/19 HISTORY: COPD, emphysema, asthma, chronic bronchitis, difficulty breathing, respiratory distress. FINDINGS: There is good contrast opacification of the pulmonary arterial vasculature without filling defects to suggest pulmonary embolism. The thoracic aorta is well opacified without aneurysm or dissection. No pleural or pericardial effusi ons seen. There are chronic changes in the left lung apex with interval development of calcification since the CT cervical spine of 05/02/12. A thick-walled cavitary lesion has developed in the right kristen ng apex measuring 4.3 x 3.7 x 3.8 cm. Multiple thick-walled smaller lung nodules are seen bilaterally . Noncavitary nodules are also present, the largest is in the right lower lobe, measuring 2.5 cm. The re are degenerative changes in the spine. IMPRESSION: 1. No CT evidence of pulmonary embolism. 2. Multiple thick-walled cavitary pulmonary nodules and noncavitary solid pulmonary nodules. Differe ntial diagnosis includes malignancy/metastatic disease (most likely), infectious (TB, bacterial, emory al, and rarely parasitic agents) and noninfectious (rheumatologic, occupational, environmental) cause s. POS: [facility]
[2019-02-08 11:22] LABS: Bilirubin Negative (Negative); Blood, Urine Negative (Negative); Clarity Clear (Clear); Glucose, Urine (Dipstick) Normal (Negative); Leukocyte Negative Leu/uL (Negative); Nitrite Negative (Negative); Protein, Urine (Dipstick) Negative (Neg-Trace); Urobilinogen Normal mg/dL (Less than 2)
[2019-02-08] MEDS ORDERED: Guaifenesin DM 100-10/5 ML UDCUP PO PRN (14:40)
[2019-02-08] MEDS ORDERED: Ondansetron PF 4 MG/2 ML Vial IVP PRN (14:40)
[2019-02-08] MEDS ORDERED: methylPREDNISolone Sod Succ/PF 125 MG/2 ML VIAL IVP SCH ×2 (15:00→15:30)
[2019-02-08] MEDS ORDERED: Iopamidol-370 76% 500 ML 1 ML ONE (15:08)
[2019-02-08] MEDS ORDERED: Bacteriostatic Water 30 ML VIAL FS PRN (15:38)
[2019-02-08] MEDS: Piperacillin/Tazobactam 3.375 GM in Sodium Chloride 0.9% 100 ML IVPB SCH ×2 (16:13→23:23)
--- NOTE | 2019-02-08 17:14 | CON ---
DATE OF CONSULTATION: 02/08/2019 SERVICE: Pulmonary Medicine. REASON FOR CONSULTATION: Pulmonary cavities. HISTORY OF PRESENT ILLNESS: The patient is a 64-year-old white male with past medical history significant for lung cancer, status post sleeve resection. This was remote over [address], he comfortably returned to his usual state a long time ago, but for the past 3 to 4 months, he has had increasing shortness of breath, dyspnea, cough, and yellow sputum production. He was in the hospital about 2 to 3 months ago with similar symptoms. He was given some antibiotics and things got better briefly. That being said, he had return of the situation once again. He has had a 50-pound weight loss over the last 3 months, hemoptysis, as well as night sweats. He actually has to get up and change his clothes from time to time. He presented back to the emergency department. Chest x-ray was abnormal, prompting a CT scan, which showed multiple cavitary lesions, predominantly in the upper lobes. PAST MEDICAL HISTORY: 1. COPD. 2. Asthma. 3. Chronic hepatitis C. 4. Chronic back pain. PAST SURGICAL HISTORY: 1. Back surgery x2. 2. Sleeve resection of the right upper lobe. SOCIAL HISTORY: Negative for alcohol or illicit drug use. He smokes a quarter pack on a daily basis. He denies any exposure to chemicals, dust, asbestos, or tuberculosis. FAMILY HISTORY: Noncontributory. ALLERGIES: NO KNOWN DRUG ALLERGIES. MEDICATIONS: List of his inpatient and outpatient medications was reviewed. Multiple small updates were made. REVIEW OF SYSTEMS: General; head, ears, eyes, nose, throat; cardiovascular; respiratory; GI; ; musculoskeletal; neurologic; and skin are negative except as mentioned in the HPI. PHYSICAL EXAMINATION: VITAL SIGNS: Afebrile, pulse 116, blood pressure 124/86, respirations 19, and saturation 100% currently on high-flow nasal cannula. GENERAL: The patient is awake and alert, in mild respiratory distress. HEENT: Normocephalic and atraumatic. Sclerae white. Conjunctivae pink. Oral mucosa is moist without lesions. LUNGS: Decreased air entry with a prolonged expiratory phase. Extensive rhonchi are present. I really do not hear any wheezing, but he is not moving much air. No crackles. HEART: Normal rate and regular. ABDOMEN: Soft, nontender, and nondistended. Bowel sounds are positive. MUSCULOSKELETAL: No cyanosis or clubbing. There is no pitting in the bilateral lower extremities. NEUROLOGIC: Grossly nonfocal. LABORATORY DATA: WBC 21.7, hemoglobin 14.9, platelets 346,000. Neutrophils are 78% on top of 2% bands. Lymphocytes are 12%, monocytes are low. A pH 7.47, pCO2 of 33, pO2 of 150 when he was on BiPAP at 40% FiO2. Basic metabolic profile and liver function studies are unremarkable otherwise. BNP 19.2, troponin 0.17. Prior blood cultures x4 were negative. Influenza A and B are unremarkable. IMAGIN. Chest x-ray demonstrates multifocal infiltrates and possible cavitary disease. This was not previously identified in November. 2. CTA of the chest demonstrates multiple cavitary lesions scattered throughout bilateral lung maki as well as other infiltrates. This is overlying the significant emphysematous changes. There is no evidence of a PE. ASSESSMENT: 1. Acute hypoxic respiratory failure. 2. Healthcare-associated pneumonia. 3. Cavitary lung disease. 4. Chronic obstructive pulmonary disease with acute exacerbation. DISCUSSION AND PLAN: I fully agree with the respiratory precautions for the time being given his B symptoms. We will get a sputum culture for AFB and routine cultures. He will be tucked into the ICU. We will wean away oxygen as tolerated. Dr. Omalley will assume care in the morning as he has an established relationship with Mr. Wood. I will add rheumatoid factor, ANCA, and SPEP to tomorrow morning's laboratories. Our differential remains wide and includes neoplastic processes, inflammatory conditions, and infectious conditions, but because of the rapidity with which this developed, I favor infection. Unfortunately, it is likely to represent an atypical infection given this protracted presentation. 70 minutes have been devoted to this patient in various activities. I personally reviewed all imaging studies and laboratory data noted within this document. For fifty percent of this time, I was interacting with the patient at the bedside or coordinating care with the care team. For the remainder of the time I was immediately available to the patient in the hospital unit. Job ID: [id number] [facility]
[2019-02-08] MEDS ORDERED: methylPREDNISolone Sod Succ 40 MG VIAL IVP SCH (21:00)
[2019-02-08] MEDS: guaiFENesin ER 600 MG TAB PO SCH (21:19)
[2019-02-08] MEDS: Famotidine/PF 20 mg/2ml Vial SLOW IVP SCH (21:19)
[2019-02-08] MEDS ORDERED: Cyclobenzaprine 10 MG TAB PO PRN (21:58)
[2019-02-08] MEDS ORDERED: Cyclobenzaprine 10 MG TAB PO SCH (22:00)
[2019-02-08] MEDS ORDERED: Amitriptyline HCl 25 MG TAB PO SCH (22:00)
[2019-02-09 06:35] LABS: Anion Gap 10 mmol/L (10-20); BUN (Urea Nitrogen) 19 mg/dL (8.4-25.7); Calc. Creatinine Clearance 74 mL/min (70-130); Calcium 8.7 mg/dL (7.8-10.44); Carbon Dioxide 28 mmol/L (23-31); Chloride 107 mmol/L (98-107); Estimated GFR-MDRD Greater than 90; Glucose 107 mg/dL (80-115); Potassium 4.6 mmol/L (3.5-5.1); Sodium 140 mmol/L (136-145)
--- NOTE | 2019-02-09 07:57 | HP ---
PRIMARY CARE PHYSICIAN: Unknown. MEDICAL ARTIST: Ar Omalley MD CHIEF COMPLAINT: Shortness of breath x2 months, worsened times days. HISTORY OF PRESENT ILLNESS: A 64-year-old male with past medical history of COPD, chronic nicotine dependence with recent cessation months ago, partial lobectomy of right lung 3 years ago reportedly negative for malignancy, and recent hospitalization months ago for COPD exacerbation with unremarkable chest radiographs, who did not qualify for oxygen at that time, presents to [facility] Emergency Room for a 2-month history of paroxysmal nocturnal dyspnea that worsened over the past several days associated with cough and wheezing prompting ED evaluation. In the emergency room, the patient was reported to in respiratory distress and tripoding and required placement on BiPAP with improvement in work of breathing. He was also administered IV Solu-Medrol 125 mg, nebulized bronchodilators, magnesium sulfate with improvement in respiratory symptoms. ABG on BiPAP appeared unremarkable. Labs reveal white blood cell count of 21.7 with unremarkable chemistries, lactic acid levels and CTA of chest and thorax that was negative for pulmonary embolism, but revealed multiple thick walled cavitary pulmonary nodules as well as noncavitary solid pulmonary nodules concerning for malignancy and metastatic disease, but other considerations also noted by radiologist. The patient was administered IV Levaquin, IV vancomycin, 500 mL IV fluid bolus, placed on reverse isolation, and admitted to the ICU on high-flow nasal cannula. At bedside, the patient continues to feel short of breath with increased work of breathing when speaking. He notes 50-pound unintentional weight loss over the last 6 months. He notes decreased functional status. He complains of intermittent sweats. He notes blood-tinged sputum 3 days ago associated with forceful coughing, but denies any frequent hemoptysis. He denies any prior incarcerations or IV drug abuse. He has history of hepatitis B. He reports prior lobectomy 3 years ago, was negative for malignancy. PAST MEDICAL HISTORY: COPD, chronic nicotine dependence with recent cessation, recent hospitalization for COPD exacerbation, hypertension, and dyslipidemia. PAST SURGICAL HISTORY: Partial lobectomy, back surgery, finger amputation, and rhinoplasty. SOCIAL HISTORY: The patient admits to chronic nicotine dependence with recent cessation months ago. During last hospitalization, he denies any use. He notes history of hepatitis B. REVIEW OF SYSTEMS: Remainder of review of systems is otherwise negative. MEDICATIONS: Home medications will be reviewed as per admission medication. PHYSICAL EXAMINATION: VITAL SIGNS: blood pressure 115/61. GENERAL APPEARANCE: This is an elderly thin male, hard of hearing, in respiratory distress, speaking in broken sentences. HEENT: Eyes; pupils are equally round. Extraocular muscles are intact. No facial asymmetry. CARDIOVASCULAR SYSTEM: S1 and S2. Tachycardiac. No harsh murmurs. No chest wall tenderness. LUNGS: The patient is tachypneic with increased work of breathing noted. Poor air entry with diffuse expiratory wheezing noted. ABDOMEN: Soft, nontender, and nondistended. No peritoneal signs. EXTREMITIES: No edema, cyanosis, or deformities. SKIN: Warm to touch without rash, pallor, or abrasion. LABORATORY DATA: White blood cell count 21.7, H and H of 14.9/46.8, and platelets 345. ABG; 7.47/32.8/149.4/94.8% on 40% BiPAP. BMP reviewed, unremarkable. Troponin I negative. Lactic acid negative. Urinalysis negative. IMAGING DATA: CTA of chest and thorax personally reviewed on 02/08/2019 reveals no evidence of PE. Multiple thick walled cavitary pulmonary nodules and noncavitary solid pulmonary nodules. ASSESSMENT AND PLAN: 1. Respiratory . Likely secondary to multifactorial etiology including chronic obstructive pulmonary disease exacerbation, pulmonary nodules concerning for possible malignancy. The patient will be admitted to the inpatient status to ICU in a guarded condition. He is currently on high-flow oxygen nasal cannula, but will require noninvasive positive-pressure ventilation Pulmonology has been consulted. Case discussed with ICU physician. We will continue parenteral glucocorticoids, nebulized bronchodilators, empiric IV antibiotics with Zosyn. Obtain sputum cultures with AFB and monitor respiratory status. 2. Acute exacerbation of chronic obstructive pulmonary disease. Continue IV steroids, nebulized bronchodilators, empiric antibiotics. Follow sputum culture. 3. Multiple thick walled cavitary pulmonary nodules of unspecific etiology. in patient history of partial lobectomy . Anthropology And Archeology Instructor has been consulted to evaluate for we will continue the patient on reverse isolation for possible pulmonary tuberculosis and obtain sputum cultures and AFB. The patient denies any hemoptysis; however, but does note blood-tinged hemoptysis several days ago with forceful coughing. 4. Solid pulmonary nodules of unspecific etiology. Neoplastic etiology must be excluded. 5. History of partial lobectomy. 6. Recent hospitalization months ago for chronic obstructive pulmonary disease exacerbation. 7. Chronic nicotine dependence with recent cessation. Continue cessation counseling. 8. History of hearing loss. 9. . 10. Gastrointestinal prophylaxis, IV Pepcid. 11. Deep venous thrombosis prophylaxis with low molecular weight heparin. 12. Check a.m. labs on 02/09/2019. 13. Guarded prognosis. 14. Code status: Discussed with the patient and would like to maintained a full code. 15. Disposition: Admitted to inpatient status to ICU. Anticipate a prolonged hospitalization stay. Job ID: [id number]
[2019-02-09 07:59] LABS: Band 3 % (5-11); Hemoglobin 12.5 g/dL (14.0-18.0); Lymphocytes 13 % (21-51); MDiff Complete? YES; Mean Corpuscular HGB CONC 32.9 g/dL (32.0-36.0); Mean Corpuscular Hemoglobin 30.7 pg (27.0-31.0); Mean Corpuscular Volume 93.3 fL (78.0-98.0); Mean Platelet Volume 6.3 fL (7.4-10.4); Monocytes 4 % (0-10); Myelocyte 1 % (0-0); Neutrophil 76 % (42-75); Platelet Count 271 thou/uL (130-400); RBC Distribution Width 15.8 % (11.5-14.5); RBC Morphology Normal; Reactive Lymphocytes 3 % (0-10); Red Blood Cell (RBC) Count 4.06 mill/uL (4.70-6.10); White Blood Cell (WBC) Count 18.3 thou/uL (4.8-10.8)
--- NOTE | 2019-02-09 08:37 | PRG ---
DATE OF SERVICE: 02/09/2019 SUBJECTIVE: Ernesto HEMPHILL is a 64-year-old gentleman who was admitted with respiratory failure, worsening cough, wheezing, and shortness of breath. His x-ray showed the previously described bilateral apical nodular density. He had a CT done, which now showed evidence of left-sided nodular density, which he followed for a period of time. Right upper lung may be thin-walled or thick-walled cavitary disease in the apex. I would review his old CT for comparison purposes. OBJECTIVE: VITAL SIGNS: Otherwise, his saturations are 97%, pulse 80, blood pressure 138/18. CHEST: Diffuse wheezing. CARDIAC: Sinus tach. ABDOMEN: Soft. No masses. [place]: [place] [address]. Lytes are normal. IMPRESSION: Chronic obstructive pulmonary disease exacerbation, abnormal CT, apical nodular cavitary disease, ongoing tobacco abuse and chronic pain. PLAN: Continue neb treatments, steroids and supportive care. Await sputum results. We will follow. Job ID: [id number]
[2019-02-09] MEDS ORDERED: FLU VACC TS2019-20(65YR UP)/PF 180 MCG/0.5 ML SYRINGE IM ONE (09:00)
[2019-02-09] MEDS ORDERED: Non-Formulary Item 1 EACH (Esomeprazole Magnesium [Nexium Oral Suspension] 40 MG) PO SCH (09:00)
[2019-02-09] MEDS ORDERED: Prevnar 13-Val Conj/PF 0.5 ML SYRINGE IM ONE (09:00)
[2019-02-09] MEDS: Enoxaparin Sodium 40 MG/0.4 ML SYRINGE SC SCH (09:46)
[2019-02-09] MEDS: Piperacillin/Tazobactam 3.375 GM in Sodium Chloride 0.9% 100 ML IVPB SCH ×2 (09:47→15:14)
[2019-02-09] MEDS: Famotidine/PF 20 mg/2ml Vial SLOW IVP SCH ×2 (09:47→20:54)
[2019-02-09] MEDS: Cyclobenzaprine 10 MG TAB PO SCH ×3 (09:47→20:54)
[2019-02-09] MEDS: Montelukast Sodium 10 mg Tablet PO SCH (09:47)
[2019-02-09] MEDS: Pantoprazole 40 MG GRANULES PACKET PO SCH (09:48)
[2019-02-09] MEDS: Atorvastatin Calcium 40 MG TAB PO SCH (09:48)
[2019-02-09] MEDS: guaiFENesin ER 600 MG TAB PO SCH ×2 (09:48→20:54)
[2019-02-09] MEDS: methylPREDNISolone Sod Succ 40 MG VIAL IVP SCH ×3 (09:49→20:54)
--- NOTE | 2019-02-09 10:53 | PDOC.HOSPP ---
- Subjective Encounter Date: 02/09/19 Encounter Time: 10:51 Subjective: Mr. Wood was seen today in follow-up of respiratory failure and weight loss. He continues to have some dyspnea, and cough. No new complaints. - Objective Vital Signs & Weight: Vital Signs (12 hours) Temp Pulse Resp Pulse Ox 02/09/19 10:33 113 H 20 100 02/09/19 07:14 102 H 20 100 02/09/19 07:11 97 20 100 02/09/19 04:00 97.8 F 02/09/19 02:14 100 02/09/19 02:09 111 H 24 H 100 02/09/19 00:00 98.3 F Weight Weight 121 lb 0.54 oz Most Recent Monitor Data Heart Rate from ECG 96 NIBP 127/87 NIBP BP-Mean 100 Respiration from ECG 23 SpO2 100 I&O: 02/08/19 02/09/19 02/10/19 06:59 06:59 06:59 Intake Total 660 Output Total 775 Balance -115 Result Diagrams: 02/09/19 06:01 02/09/19 06:01 Hospitalist ROS - Medication Medications: Active Medications Generic Name Dose Route Start Last Admin Trade Name Freq PRN Reason Stop Dose Admin Albuterol/Ipratropium 3 ml 02/08/19 18:30 02/09/19 10:33 Duoneb NEB 3 ml [id number] VALENCIA Administration Atorvastatin Calcium 80 mg 02/09/19 09:00 02/09/19 09:48 Lipitor PO 80 mg DAILY VALENCIA Administration Cyclobenzaprine HCl 5 mg 02/09/19 09:00 02/09/19 09:47 Flexeril PO 5 mg TID VALENCIA Administration Enoxaparin Sodium 40 mg 02/09/19 09:00 02/09/19 09:46 Lovenox SC 40 mg 0900 VALENCIA Administration Famotidine 20 mg 02/08/19 21:00 02/09/19 09:47 Pepcid SLOW IVP 20 mg Q12HR VALENCIA Administration Guaifenesin 1,200 mg 02/08/19 21:00 02/09/19 09:48 Mucinex PO 1,200 mg Q12HR VALENCIA Administration Piperacillin Sod/Tazobactam 100 mls @ 200 mls/hr 02/08/19 16:00 02/09/19 09: 47 Sod 3.375 gm/ Sodium Chloride IVPB 100 mls 0000,0800,1600 VALENCIA Administration Methylprednisolone Sodium Succinate 40 mg 02/09/19 09:00 02/09/19 09:49 Solu-Medrol IVP 40 mg TID VALENCIA Administration Montelukast Sodium 10 mg 02/09/19 09:00 02/09/19 09:47 Singulair PO 10 mg DAILY VALENCIA Administration Pantoprazole Sodium 40 mg 02/09/19 09:00 02/09/19 09:48 Protonix PO 40 mg DAILY VALENCIA Administration Sterile Water 1 ml 02/08/19 15:38 02/08/19 21:20 Bacteriostatic Water FS 1 ml PRN PRN Administration RECONSTITUTION - Exam Eye: PERRL Heart: RRR, no murmur, no gallops, no rubs, normal peripheral pulses Respiratory: wheezes (Wheezing bilaterally, no rhonchi) Gastrointestinal: soft, non-tender, non-distended, normal bowel sounds, no palpable masses, no hepatomegaly Extremities: no cyanosis, no clubbing, no edema Hosp A/P (1) Acute on chronic respiratory failure with hypoxemia Code(s): J96.21 - ACUTE AND CHRONIC RESPIRATORY FAILURE WITH HYPOXIA Status: Acute (2) Weight loss, non-intentional Code(s): R63.4 - ABNORMAL WEIGHT LOSS Status: Acute (3) COPD exacerbation Code(s): J44.1 - CHRONIC OBSTRUCTIVE PULMONARY DISEASE W (ACUTE) EXACERBATION Status: Acute (4) Hypertension Code(s): I10 - ESSENTIAL (PRIMARY) HYPERTENSION Status: Chronic - Plan * Acute on chronic respiratory failure- slowly improving * He has been cleared to transition out of the ICU * Continue IV steroids, Duonebs, and Zosyn * Work-up for the cavitary lesions is in progress- pending tests noted * Agree with reducing the amount of sedating medications * HTN- blood pressure is stable- Ramipril is on hold
[2019-02-09] MEDS: Mometasone/Formoterol 120 PUFF INHALER INH SCH (18:26)
[2019-02-09] MEDS: Amitriptyline HCl 25 MG TAB PO SCH (20:54)
[2019-02-10] MEDS: Piperacillin/Tazobactam 3.375 GM in Sodium Chloride 0.9% 100 ML IVPB SCH ×4 (00:29→23:35)
[2019-02-10] MEDS: Mometasone/Formoterol 120 PUFF INHALER INH SCH ×2 (07:03→19:23)
[2019-02-10] MEDS: methylPREDNISolone Sod Succ 40 MG VIAL IVP SCH (09:03)
[2019-02-10] MEDS: Enoxaparin Sodium 40 MG/0.4 ML SYRINGE SC SCH (09:03)
[2019-02-10] MEDS: Famotidine/PF 20 mg/2ml Vial SLOW IVP SCH ×2 (09:03→20:17)
[2019-02-10] MEDS: Atorvastatin Calcium 40 MG TAB PO SCH (09:03)
[2019-02-10] MEDS: Cyclobenzaprine 10 MG TAB PO SCH ×3 (09:04→20:17)
[2019-02-10] MEDS: guaiFENesin ER 600 MG TAB PO SCH (09:04)
[2019-02-10] MEDS: Pantoprazole 40 MG GRANULES PACKET PO SCH (09:04)
[2019-02-10] MEDS: Montelukast Sodium 10 mg Tablet PO SCH (09:04)
--- NOTE | 2019-02-10 10:39 | PRG ---
DATE OF SERVICE: 02/10/2019 SUBJECTIVE: This morning, he is better, still coughing. OBJECTIVE: VITAL SIGNS: Temperature 97, pulse 101, blood pressure 110/77, respirations 18. CHEST: Bilateral wheezing. CARDIAC: Normal S1 and S2. No gallops. ABDOMEN: No masses. IMPRESSION: Chronic obstructive pulmonary disease exacerbation, bronchitis, ongoing tobacco abuse, abnormal x-ray, sputum x3, negative acid-fast. PLAN: We are going to discontinue his isolation. Continue antibiotics, neb treatment. Await cytology results. Job ID: [id number]
[2019-02-10] MEDS: Amitriptyline HCl 25 MG TAB PO SCH (20:17)
[2019-02-10] MEDS: predniSONE 20 MG TAB PO SCH (20:17)
[2019-02-10] MEDS: guaiFENesin/DM ER PO SCH (20:17)
[2019-02-11] MEDS: Albuterol Sulfate 1.25 MG/3 ML NEB NEB PRN (05:45)
[2019-02-11] MEDS: Mometasone/Formoterol 120 PUFF INHALER INH SCH ×2 (06:40→18:36)
[2019-02-11] MEDS ORDERED: Famotidine 20 MG TAB PO SCH (09:00)
[2019-02-11] MEDS: Piperacillin/Tazobactam 3.375 GM in Sodium Chloride 0.9% 100 ML IVPB SCH (09:22)
[2019-02-11] MEDS: Cyclobenzaprine 10 MG TAB PO SCH ×3 (09:22→20:26)
[2019-02-11] MEDS: guaiFENesin/DM ER PO SCH ×2 (09:22→20:27)
[2019-02-11] MEDS: Montelukast Sodium 10 mg Tablet PO SCH (09:22)
[2019-02-11] MEDS: predniSONE 20 MG TAB PO SCH ×2 (09:22→20:27)
[2019-02-11] MEDS: Pantoprazole 40 MG GRANULES PACKET PO SCH (09:23)
[2019-02-11] MEDS: Enoxaparin Sodium 40 MG/0.4 ML SYRINGE SC SCH (09:23)
[2019-02-11] MEDS: Atorvastatin Calcium 40 MG TAB PO SCH (09:23)
--- NOTE | 2019-02-11 10:18 | RAD ---
RADIOGRAPH CHEST 1 VIEW: DATE: 02/11/2019 TIME: 7:46 AM HISTORY: 64-year-old male with pneumonia and respiratory distress COMPARISON: 02/08/2019 FINDINGS: No significant interval change. IMPRESSION: 1) right apical cavitary pulmonary lesion. 2) numerous irregularly-shaped small noncalcified pulmonary nodules in the right mid and lower lung z ones suggestive of infectious process by atypical organism. 3) emphysema. 4) no interval change.
--- NOTE | 2019-02-11 11:54 | PRG ---
DATE OF SERVICE: 02/11/2019 SUBJECTIVE: Ernesto Wood is better. He is still coughing, but sputum is relatively clear. No fever or chills. OBJECTIVE: VITAL SIGNS: Temperature 98, pulse 140, respiratory rate is 20, saturations are 98% on 2 L, blood pressure 130/71. CHEST: Diffuse wheezing, rhonchi. CARDIAC: Normal S1, S2. No gallops. ABDOMEN: No masses. ASSESSMENT: Right upper lung cavitary infiltrate, chronic obstructive pulmonary disease, tobacco abuse. PLAN: Switch over to oral antibiotics. Consider diagnostic bronchoscopy in the next several days when the wheezing is better. Job ID: [id number]
[2019-02-11] MEDS: Amoxicillin/Potassium Clav 500 MG TAB PO SCH ×2 (12:47→23:39)
--- NOTE | 2019-02-11 12:51 | PDOC.HOSPP ---
- Subjective Encounter Date: 02/11/19 Encounter Time: 12:49 Subjective: Mr. Wood was seen today in follow-up of respiratory failure. He continues to have wheezing, and dyspnea. He does not have any new complaints. - Objective Vital Signs & Weight: Vital Signs (12 hours) Temp Pulse Resp BP Pulse Ox 02/11/19 10:56 114 H 20 98 02/11/19 09:33 98 02/11/19 07:46 98.1 F 114 H 20 134/71 98 02/11/19 07:38 98.1 F 114 H 20 134/71 98 02/11/19 06:38 112 H 22 H 94 L 02/11/19 05:45 101 H 20 95 02/11/19 01:41 95 02/11/19 01:34 98 18 95 Weight Admit Weight 121 lb 0.54 oz Weight 124 lb 12.8 oz Most Recent Monitor Data Heart Rate from ECG 116 NIBP 117/81 NIBP BP-Mean 93 Respiration from ECG 28 SpO2 100 I&O: 02/10/19 02/11/19 02/12/19 06:59 06:59 06:59 Intake Total 2016 940 Output Total 225 Balance 1791 940 Result Diagrams: 02/09/19 06:01 02/09/19 06:01 Hospitalist ROS - Medication Medications: Active Medications Generic Name Dose Route Start Last Admin Trade Name Freq PRN Reason Stop Dose Admin Albuterol Sulfate 1.25 mg 02/08/19 14:32 02/11/19 05:45 Albuterol Sulfate NEB 1.25 mg Q8H PRN Administration Wheezing Albuterol/Ipratropium 3 ml 02/08/19 18:30 02/11/19 10:56 Duoneb NEB 3 ml [id number] VALENCIA Administration Amitriptyline HCl 25 mg 02/09/19 21:00 02/10/19 20:17 Elavil PO 25 mg HS VALENCIA Administration Amoxicillin/Clavulanate Potassium 500 mg 02/11/19 12:00 02/11/19 12:47 Augmentin PO 02/18/19 00:01 500 mg 1200,2359 VALENCIA Administration Atorvastatin Calcium 80 mg 02/09/19 09:00 02/11/19 09:23 Lipitor PO 80 mg DAILY [facility]ENCIA Administration Cyclobenzaprine HCl 5 mg 02/09/19 09:00 02/11/19 09:22 Flexeril PO 5 mg TID VALENCIA Administration Enoxaparin Sodium 40 mg 02/09/19 09:00 02/11/19 09:23 Lovenox SC 40 mg 0900 VALENCIA Administration Famotidine 20 mg 02/11/19 09:00 02/11/19 09:23 Pepcid PO 20 mg Q12HR VALENCIA Administration Guaifenesin/Dextromethorphan 2 tab 02/10/19 21:00 02/11/19 09:22 Mucinex Dm PO 2 tab Q12HR VALENCIA Administration Mometasone Furoate/Formoterol Fumar 2 puff 02/09/19 18:30 02/11/19 06:40 Dulera 200 Mcg/5 Mcg Inhaler INH 2 puff BID-RT VALENCIA Administration Montelukast Sodium 10 mg 02/09/19 09:00 02/11/19 09:22 Singulair PO 10 mg DAILY [facility]ENCIA Administration Pantoprazole Sodium 40 mg 02/09/19 09:00 02/11/19 09:23 Protonix PO 40 mg DAILY [facility]ENCIA Administration Prednisone 20 mg 02/10/19 21:00 02/11/19 09:22 Prednisone PO 20 mg BID VALENCIA Administration Sodium Chloride 10 ml 02/10/19 21:00 02/11/19 09:24 Flush - Normal Saline IVF 10 ml Q12HR VALENCIA Administration Sterile Water 1 ml 02/08/19 15:38 02/08/19 21:20 Bacteriostatic Water FS 1 ml PRN PRN Administration RECONSTITUTION - Exam Eye: PERRL Heart: RRR, no murmur, no gallops, no rubs, normal peripheral pulses Respiratory: no ronchi, wheezes Gastrointestinal: soft, non-tender, non-distended, normal bowel sounds Extremities: no cyanosis, no clubbing, no edema Hosp A/P (1) Acute on chronic respiratory failure with hypoxemia Code(s): J96.21 - ACUTE AND CHRONIC RESPIRATORY FAILURE WITH HYPOXIA Status: Acute (2) Weight loss, non-intentional Code(s): R63.4 - ABNORMAL WEIGHT LOSS Status: Acute (3) COPD exacerbation Code(s): J44.1 - CHRONIC OBSTRUCTIVE PULMONARY DISEASE W (ACUTE) EXACERBATION Status: Acute (4) Hypertension Code(s): I10 - ESSENTIAL (PRIMARY) HYPERTENSION Status: Chronic - Plan * Acute on chronic respiratory failure- slowly improving * AFB smears are negative, and awaiting culture results * Continue IV steroids, Duonebs, and Zosyn * Work-up for the cavitary lesions is in progress- pending tests noted * HTN- blood pressure is stable
--- NOTE | 2019-02-11 12:54 | PDOC.HOSPP ---
- Subjective Encounter Date: 02/10/19 Encounter Time: 13:00 Subjective: Mr. Wood was seen today in follow-up of respiratory failure. He does not have any new complaints. - Objective Vital Signs & Weight: Vital Signs (12 hours) Temp Pulse Resp BP Pulse Ox 02/11/19 10:56 114 H 20 98 02/11/19 09:33 98 02/11/19 07:46 98.1 F 114 H 20 134/71 98 02/11/19 07:38 98.1 F 114 H 20 134/71 98 02/11/19 06:38 112 H 22 H 94 L 02/11/19 05:45 101 H 20 95 02/11/19 01:41 95 02/11/19 01:34 98 18 95 Weight Admit Weight 121 lb 0.54 oz Weight 124 lb 12.8 oz Most Recent Monitor Data Heart Rate from ECG 116 NIBP 117/81 NIBP BP-Mean 93 Respiration from ECG 28 SpO2 100 I&O: 02/10/19 02/11/19 02/12/19 06:59 06:59 06:59 Intake Total 2016 940 Output Total 225 Balance 1791 940 Result Diagrams: 02/09/19 06:01 02/09/19 06:01 Hospitalist ROS - Medication Medications: Active Medications Generic Name Dose Route Start Last Admin Trade Name Freq PRN Reason Stop Dose Admin Albuterol Sulfate 1.25 mg 02/08/19 14:32 02/11/19 05:45 Albuterol Sulfate NEB 1.25 mg Q8H PRN Administration Wheezing Albuterol/Ipratropium 3 ml 02/08/19 18:30 02/11/19 10:56 Duoneb NEB 3 ml [id number] VALENCIA Administration Amitriptyline HCl 25 mg 02/09/19 21:00 02/10/19 20:17 Elavil PO 25 mg HS VALENCIA Administration Amoxicillin/Clavulanate Potassium 500 mg 02/11/19 12:00 02/11/19 12:47 Augmentin PO 02/18/19 00:01 500 mg 1200,2359 VALENCIA Administration Atorvastatin Calcium 80 mg 02/09/19 09:00 02/11/19 09:23 Lipitor PO 80 mg DAILY VALENCIA Administration Cyclobenzaprine HCl 5 mg 02/09/19 09:00 02/11/19 09:22 Flexeril PO 5 mg TID VALENCIA Administration Enoxaparin Sodium 40 mg 02/09/19 09:00 02/11/19 09:23 Lovenox SC 40 mg 0900 VALENCIA Administration Famotidine 20 mg 02/11/19 09:00 02/11/19 09:23 Pepcid PO 20 mg Q12HR VALENCIA Administration Guaifenesin/Dextromethorphan 2 tab 02/10/19 21:00 02/11/19 09:22 Mucinex Dm PO 2 tab Q12HR VALENCIA Administration Mometasone Furoate/Formoterol Fumar 2 puff 02/09/19 18:30 02/11/19 06:40 Dulera 200 Mcg/5 Mcg Inhaler INH 2 puff BID-RT VALENCIA Administration Montelukast Sodium 10 mg 02/09/19 09:00 02/11/19 09:22 Singulair PO 10 mg DAILY VALENCIA Administration Pantoprazole Sodium 40 mg 02/09/19 09:00 02/11/19 09:23 Protonix PO 40 mg DAILY VALENCIA Administration Prednisone 20 mg 02/10/19 21:00 02/11/19 09:22 Prednisone PO 20 mg BID VALENCIA Administration Sodium Chloride 10 ml 02/10/19 21:00 02/11/19 09:24 Flush - Normal Saline IVF 10 ml Q12HR VALENCIA Administration Sterile Water 1 ml 02/08/19 15:38 02/08/19 21:20 Bacteriostatic Water FS 1 ml PRN PRN Administration RECONSTITUTION - Exam Eye: PERRL Heart: RRR, no murmur, no gallops, no rubs Respiratory: no rales, no ronchi, wheezes Gastrointestinal: soft, non-tender, non-distended, normal bowel sounds Extremities: no cyanosis, no clubbing, no edema Hosp A/P (1) Acute on chronic respiratory failure with hypoxemia Code(s): J96.21 - ACUTE AND CHRONIC RESPIRATORY FAILURE WITH HYPOXIA Status: Acute (2) Weight loss, non-intentional Code(s): R63.4 - ABNORMAL WEIGHT LOSS Status: Acute (3) COPD exacerbation Code(s): J44.1 - CHRONIC OBSTRUCTIVE PULMONARY DISEASE W (ACUTE) EXACERBATION Status: Acute (4) Hypertension Code(s): I10 - ESSENTIAL (PRIMARY) HYPERTENSION Status: Chronic - Plan * Acute on chronic respiratory failure- slight improvement * AFB smears are negative- he has been taken off respiratory isolation * Continue IV steroids, Duonebs, and Zosyn * Work-up for the cavitary lesions is in progress- pending tests noted * HTN- blood pressure is stable
[2019-02-11] MEDS ORDERED: Polyethylene Glycol 3350 17 GM Packet PO PRN (12:55)
[2019-02-11] MEDS ORDERED: Bisacodyl 10 MG SUPP PR PRN (12:56)
[2019-02-11] MEDS: Amitriptyline HCl 25 MG TAB PO SCH (20:27)
[2019-02-12] MEDS: Mometasone/Formoterol 120 PUFF INHALER INH SCH ×2 (06:50→20:37)
[2019-02-12] MEDS: Pantoprazole 40 MG GRANULES PACKET PO SCH (08:26)
[2019-02-12] MEDS: Atorvastatin Calcium 40 MG TAB PO SCH (08:26)
[2019-02-12] MEDS: guaiFENesin/DM ER PO SCH ×2 (08:26→20:49)
[2019-02-12] MEDS: Montelukast Sodium 10 mg Tablet PO SCH (08:26)
[2019-02-12] MEDS: Enoxaparin Sodium 40 MG/0.4 ML SYRINGE SC SCH (08:26)
[2019-02-12] MEDS: Cyclobenzaprine 10 MG TAB PO SCH ×4 (08:26→20:47)
[2019-02-12] MEDS: predniSONE 20 MG TAB PO SCH ×2 (08:28→20:50)
--- NOTE | 2019-02-12 09:24 | PRG ---
DATE OF SERVICE: 02/12/2019 SUBJECTIVE: This morning, he is doing better, still coughing, still rattling, still coughing up some brown-blackish sputum. Micro called yesterday that his concentrated sample now shows acid-fast, they sent it to the [facility] for further identification and a mycolic acid assay. OBJECTIVE: VITAL SIGNS: Temperature 98, pulse 124, respiratory rate 24, saturations are 98%, blood pressure 149/86. CHEST: Extensive rhonchi. CARDIAC: Normal S1 and S2. No gallops. ABDOMEN: No masses. IMPRESSION: 1. 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 2. End-stage chronic obstructive pulmonary disease. 3. Tobacco abuse. 4. Cachexia. PLAN: At this stage, continue antibiotics, neb treatments, supportive care. We will follow. Job ID: [id number]
--- NOTE | 2019-02-12 10:33 | PDOC.HOSPP ---
- Subjective Encounter Date: 02/12/19 Encounter Time: 10:31 Subjective: Mr. Wood was seen today in follow-up of respiratory failure. He does not have any new complaints. - Objective Vital Signs & Weight: Vital Signs (12 hours) Temp Pulse Resp BP Pulse Ox 02/12/19 10:08 112 H 18 96 02/12/19 08:40 97 02/12/19 08:37 116 H 18 97 02/12/19 08:09 98.0 F 124 H 24 H 149/86 H 98 02/12/19 06:47 120 H 16 97 Weight Admit Weight 121 lb 0.54 oz Weight 123 lb 3.814 oz Most Recent Monitor Data Heart Rate from ECG 116 NIBP 117/81 NIBP BP-Mean 93 Respiration from ECG 28 SpO2 100 I&O: 02/11/19 02/12/19 02/13/19 06:59 06:59 06:59 Intake Total 940 Balance 940 Result Diagrams: 02/09/19 06:01 02/09/19 06:01 Hospitalist ROS - Medication Medications: Active Medications Generic Name Dose Route Start Last Admin Trade Name Freq PRN Reason Stop Dose Admin Albuterol Sulfate 1.25 mg 02/08/19 14:32 02/11/19 05:45 Albuterol Sulfate NEB 1.25 mg Q8H PRN Administration Wheezing Albuterol/Ipratropium 3 ml 02/08/19 18:30 02/12/19 10:08 Duoneb NEB 3 ml [id number] VALENCIA Administration Amitriptyline HCl 25 mg 02/09/19 21:00 02/11/19 20:27 Elavil PO 25 mg HS VALENCIA Administration Amoxicillin/Clavulanate Potassium 500 mg 02/11/19 12:00 02/11/19 23:39 Augmentin PO 02/18/19 00:01 500 mg 1200,2359 VALENCIA Administration Atorvastatin Calcium 80 mg 02/09/19 09:00 02/12/19 08:26 Lipitor PO 80 mg DAILY VALENCIA Administration Cyclobenzaprine HCl 5 mg 02/09/19 09:00 02/12/19 08:26 Flexeril PO 5 mg TID VALENCIA Administration Enoxaparin Sodium 40 mg 02/09/19 09:00 02/12/19 08:26 Lovenox SC 40 mg 0900 VALENCIA Administration Guaifenesin/Dextromethorphan 2 tab 02/10/19 21:00 02/12/19 08:26 Mucinex Dm PO 2 tab Q12HR VALENCIA Administration Mometasone Furoate/Formoterol Fumar 2 puff 02/09/19 18:30 02/12/19 06:50 Dulera 200 Mcg/5 Mcg Inhaler INH 2 puff BID-RT VALENCIA Administration Montelukast Sodium 10 mg 02/09/19 09:00 02/12/19 08:26 Singulair PO 10 mg DAILY VALENCIA Administration Pantoprazole Sodium 40 mg 02/09/19 09:00 02/12/19 08:26 Protonix PO Not Given DAILY VALENCIA Polyethylene Glycol 17 gm 02/11/19 12:55 02/11/19 13:08 Miralax PO 17 gm DAILYPRN PRN Administration Constipation Prednisone 20 mg 02/10/19 21:00 02/12/19 08:28 Prednisone PO 20 mg BID VALENCIA Administration Sodium Chloride 10 ml 02/10/19 21:00 02/12/19 08:27 Flush - Normal Saline IVF 10 ml Q12HR VALENCIA Administration Sterile Water 1 ml 02/08/19 15:38 02/08/19 21:20 Bacteriostatic Water FS 1 ml PRN PRN Administration RECONSTITUTION - Exam Eye: PERRL Heart: RRR, no murmur, no gallops, no rubs, normal peripheral pulses Respiratory: rhonchi, wheezes (+ tight bilateral wheezing,) Gastrointestinal: soft, non-tender, non-distended, normal bowel sounds, no palpable masses, no hepatomegaly, no splenomegaly Extremities: no cyanosis, no clubbing, no edema Psychiatric: normal affect, normal behavior, A&O x 3 Hosp A/P (1) Acute on chronic respiratory failure with hypoxemia Code(s): J96.21 - ACUTE AND CHRONIC RESPIRATORY FAILURE WITH HYPOXIA Status: Acute (2) Weight loss, non-intentional Code(s): R63.4 - ABNORMAL WEIGHT LOSS Status: Acute (3) COPD exacerbation Code(s): J44.1 - CHRONIC OBSTRUCTIVE PULMONARY DISEASE W (ACUTE) EXACERBATION Status: Acute (4) Hypertension Code(s): I10 - ESSENTIAL (PRIMARY) HYPERTENSION Status: Chronic - Plan * Acute on chronic respiratory failure- slight improvement * AFB smears- now have 1+ - respiratory isolation has been re-started * Continue IV steroids, Duonebs, * Antibiotic adjustments noted * Await the final identification of the sputum * HTN- blood pressure is a bit elevated, but overall stable
[2019-02-12] MEDS: Amoxicillin/Potassium Clav 500 MG TAB PO SCH ×2 (11:29→23:25)
[2019-02-12] MEDS: HYDROcodone/Acetaminophen 5/325 mg Tablet PO PRN ×3 (12:28→23:25)
[2019-02-12 13:05] LABS: EliA RAS New Method **** NEW METHOD ****; Rheumatoid Factor IgA Antibody 3.6 IU/mL (<14 Negative); Rheumatoid Factor IgM Antibody 1.9 IU/mL (<3.5 Negative)
--- NOTE | 2019-02-12 14:34 | PQF ---
Date: 02/12/19 ATTN: DR. ASHLEY MENCHACA Please exercise your independent, professional judgment in responding to the clarification form. Clinical indicators are provided on the bottom of this form for your review Please check appropriate box(s): [ X] Protein Calorie Malnutrition: [ ] Mild [ ] Moderate [X ] Severe [ ] Other Malnutrition (please specify) __ [ ] Other diagnosis [ ] Unable to determine In addition, please specify: Present on Admission (POA): [X ] Yes [ ] No [ ] Unable to determine CLINICAL INDICATORS - SIGNS / SYMPTOMS / LABS / RESULTS AND LOCATION IN MR: BMI: 02-09-19: 17.9 H&P: 02-08-19: HE NOTES 50 POUND UNINTENTIONAL WEIGHT LOSS OVER THE LAST [address] MENCHACA 02-09-19: ACUTE UNINTENTIONAL WEIGHT LOSS CONSULT NOTE DR. 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 He had diarrhea yesterday. His teeth are almost all missing or deteriorated; UBW 160 lbs in the summer and reports losing over 40 lbs since then. He believes he was around 118-119 lbs before admit; 24.4% loss from pt reported UBW x 3 months; moderate orbital, chest and upper arm fat wasting; moderate clavicle, shoulder, temporal, scapula, temporal muscle wasting; severe thigh, patellar muscle wasting; 24.4% weight loss x 3 months, reported intake estimated <75% estimated needs >1 month suggestive of severe malnutrition in the context of chronic illness RISK FACTORS / RESULTS AND LOCATION IN MR FINANCIAL OFFICER CONSULT 02-09-19: COPD, chronic nicotine dependence with recent cessation, recent hospitalization for COPD exacerbation, HTN, dyslipidemia, parietal lobectomy TREATMENT / RESULTS AND LOCATION IN MR: FINANCIAL OFFICER CONSULT 02-09-19: 1. Continue Heart Healthy incl Lo Sodium diet. 2. Recommend small, frequent meals to promote PO intake. Provide extra sauce /gravy at meals to soften tough foods and best meet increased calorie needs. 3. Request Nutrition Supplement Protocol. Ensure Enlive/Ensure Clear TID would be appropriate at this time to promote weight gain. Patient may bring home supplementation if preferred. Moderate Malnutrition (in acute illness) Energy Intake: <75% of estimated energy requirement for > 7 days Weight Loss: 1-2%/1 week; 5%/ 1 month; 7.5%/3 months Other: mild body fat loss; mild muscle mass loss; mild fluid accumulation; Severe Malnutrition (in acute illness) Energy Intake: < 50% of estimated energy requirement for > 5 days Weight Loss: >1-2%/1 week; >5%/1 month; >7.5%/3 months Other: moderate body fat loss; moderate muscle mass loss; moderate- severe fluid accumulation; measurably reduced dietary manager strength Moderate Malnutrition (in chronic illness) Energy Intake: <75% of estimated energy requirement for >1 month Weight Loss: 5%/1 month; 7.5%/3 months; 10%/6 months; 20%/1 year Other: mild body fat loss; mild muscle mass loss; mild fluid accumulation Severe Malnutrition (in chronic illness) Energy Intake: <75% of estimated energy requirement for >1 month Weight Loss: >5%/1 month; >7.5%/3 months; >10%/6 months; >20%/1 year Other: severe body fat loss; severe muscle mass loss; severe fluid accumulation ; measurably reduced dietary manager strength (This form is maintained as a part of the permanent medical record) 2014 [employer] All Rights Reserved SAGE [email or web address] Office: [phone] [facility]
--- NOTE | 2019-02-12 14:38 | PQF ---
Date: 02/12/19 ATTN: DR. ASHLEY MENCHACA Please exercise your independent, professional judgment in responding to the clarification form. Clinical indicators are provided on the bottom of this form for your review Please check appropriate box(s): [ ] Protein Calorie Malnutrition: [ ] Mild [ ] Moderate [ ] Severe [ ] Other Malnutrition (please specify) __ [ ] Other diagnosis [ ] Unable to determine In addition, please specify: Present on Admission (POA): [ ] Yes [ ] No [ ] Unable to determine CLINICAL INDICATORS - SIGNS / SYMPTOMS / LABS / RESULTS AND LOCATION IN MR: BMI: 02-09-19: 17.9 H&P: 02-08-19: HE NOTES 50 POUND UNINTENTIONAL WEIGHT LOSS OVER THE LAST [address] MENCHACA 02-09-19: ACUTE UNINTENTIONAL WEIGHT LOSS CONSULT NOTE DR. 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 He had diarrhea yesterday. His teeth are almost all missing or deteriorated; UBW 160 lbs in the summer and reports losing over 40 lbs since then. He believes he was around 118-119 lbs before admit; 24.4% loss from pt reported UBW x 3 months; moderate orbital, chest and upper arm fat wasting; moderate clavicle, shoulder, temporal, scapula, temporal muscle wasting; severe thigh, patellar muscle wasting; 24.4% weight loss x 3 months, reported intake estimated <75% estimated needs >1 month suggestive of severe malnutrition in the context of chronic illness RISK FACTORS / RESULTS AND LOCATION IN MR INDUSTRIAL HIRE SALES ASSISTANT CONSULT 02-09-19: COPD, chronic nicotine dependence with recent cessation, recent hospitalization for COPD exacerbation, HTN, dyslipidemia, parietal lobectomy TREATMENT / RESULTS AND LOCATION IN MR: INDUSTRIAL HIRE SALES ASSISTANT CONSULT 02-09-19: 1. Continue Heart Healthy incl Lo Sodium diet. 2. Recommend small, frequent meals to promote PO intake. Provide extra sauce /gravy at meals to soften tough foods and best meet increased calorie needs. 3. Request Nutrition Supplement Protocol. Ensure Enlive/Ensure Clear TID would be appropriate at this time to promote weight gain. Patient may bring home supplementation if preferred. Moderate Malnutrition (in acute illness) Energy Intake: <75% of estimated energy requirement for > 7 days Weight Loss: 1-2%/1 week; 5%/ 1 month; 7.5%/3 months Other: mild body fat loss; mild muscle mass loss; mild fluid accumulation; Severe Malnutrition (in acute illness) Energy Intake: < 50% of estimated energy requirement for > 5 days Weight Loss: >1-2%/1 week; >5%/1 month; >7.5%/3 months Other: moderate body fat loss; moderate muscle mass loss; moderate- severe fluid accumulation; measurably reduced selector packer strength Moderate Malnutrition (in chronic illness) Energy Intake: <75% of estimated energy requirement for >1 month Weight Loss: 5%/1 month; 7.5%/3 months; 10%/6 months; 20%/1 year Other: mild body fat loss; mild muscle mass loss; mild fluid accumulation Severe Malnutrition (in chronic illness) Energy Intake: <75% of estimated energy requirement for >1 month Weight Loss: >5%/1 month; >7.5%/3 months; >10%/6 months; >20%/1 year Other: severe body fat loss; severe muscle mass loss; severe fluid accumulation ; measurably reduced selector packer strength (This form is maintained as a part of the permanent medical record) 2014 [employer] All Rights Reserved SAGE [email or web address] Office: [phone] [facility]
[2019-02-12] MEDS: Albuterol Sulfate 1.25 MG/3 ML NEB NEB PRN (15:57)
[2019-02-12 17:09] LABS: Albumin 3.1 g/dL (2.9-4.4); Alpha 1 0.2 g/dL (0.0-0.4); Alpha 2 0.9 g/dL (0.4-1.0); Beta 0.9 g/dL (0.7-1.3); Gamma 1.2 g/dL (0.4-1.8); Globulin, Total 3.2 g/dL (2.2-3.9); M-Spike Not Observed g/dL (Not Observed); Protein Electrophoresis Intrp Note: (.)
[2019-02-12] MEDS: Amitriptyline HCl 25 MG TAB PO SCH (20:50)
[2019-02-13] MEDS: HYDROcodone/Acetaminophen 5/325 mg Tablet PO PRN ×4 (05:31→20:17)
[2019-02-13] MEDS: Mometasone/Formoterol 120 PUFF INHALER INH SCH ×2 (07:17→18:48)
[2019-02-13] MEDS: Montelukast Sodium 10 mg Tablet PO SCH (08:00)
[2019-02-13] MEDS: guaiFENesin/DM ER PO SCH ×2 (08:00→20:17)
[2019-02-13] MEDS: Cyclobenzaprine 10 MG TAB PO SCH ×3 (08:00→20:15)
[2019-02-13] MEDS: Atorvastatin Calcium 40 MG TAB PO SCH (08:00)
[2019-02-13] MEDS: predniSONE 20 MG TAB PO SCH ×2 (08:00→20:17)
[2019-02-13] MEDS: Enoxaparin Sodium 40 MG/0.4 ML SYRINGE SC SCH (08:01)
[2019-02-13] MEDS: Pantoprazole 40 MG GRANULES PACKET PO SCH (08:21)
[2019-02-13 08:47] LABS: #Basophils 0.1 thou/uL (0.0-0.2); #Eosinphils 0.1 thou/uL (0.0-0.7); #Monocytes 1.7 thou/uL (0.11-0.59); #Neutrophils 15.7 thou/uL (1.40-6.50); %Basophils 0.3 % (0.0-1.0); %Eosinophils 0.7 % (0.0-10.0); %Lymphocytes 5.4 % (21.0-51.0); %Monocytes 9.3 % (0.0-10.0); %Neutrophils 84.4 % (42.0-75.0); Hemoglobin 13.6 g/dL (14.0-18.0); Mean Corpuscular HGB CONC 33.4 g/dL (32.0-36.0); Mean Corpuscular Hemoglobin 31.4 pg (27.0-31.0); Mean Platelet Volume 6.4 fL (7.4-10.4); Platelet Count 263 thou/uL (130-400); RBC Distribution Width 15.4 % (11.5-14.5); Red Blood Cell (RBC) Count 4.34 mill/uL (4.70-6.10); White Blood Cell (WBC) Count 18.7 thou/uL (4.8-10.8)
--- NOTE | 2019-02-13 08:50 | PRG ---
DATE OF SERVICE: 02/13/2019 SUBJECTIVE: This morning, he is doing better. Last night he had an asthma attack, it turned to be coughing and wheezing. OBJECTIVE: VITAL SIGNS: Temperature 98, pulse 106, respiratory rate 20, saturations 98% on 3 L, blood pressure 112/80. CHEST: Bilateral wheezing. CARDIAC: Normal S1, S2. No gallops. IMPRESSION: Chronic obstructive pulmonary disease, cavitary infiltrate, positive acid-fast. PLAN: At this stage, awaiting the final report on the acid-fast, whether it is MTB or atypical. Continue antibiotics, steroids. I have added Pulmicort to present regimen. We will follow. Job ID: [id number]
[2019-02-13 09:08] LABS: Anion Gap 17 mmol/L (10-20); BUN (Urea Nitrogen) 21 mg/dL (8.4-25.7); Calc. Creatinine Clearance 83 mL/min (70-130); Calcium 8.7 mg/dL (7.8-10.44); Carbon Dioxide 22 mmol/L (23-31); Chloride 101 mmol/L (98-107); Estimated GFR-MDRD Greater than 90; Glucose 108 mg/dL (80-115); Potassium 4.4 mmol/L (3.5-5.1); Sodium 136 mmol/L (136-145)
[2019-02-13] MEDS: Amoxicillin/Potassium Clav 500 MG TAB PO SCH (11:47)
[2019-02-13 16:09] LABS: Cytoplasmic (C-ANCA) <1:20 titer (Neg:<1:20); Myeloperoxidase AutoAbs <9.0 U/mL (0.0-9.0); Perinuclear (P-ANCA) <1:20 titer (Neg:<1:20); Proteinase-3 AutoAbs Less than 3.5 U/mL (0.0-3.5)
--- NOTE | 2019-02-13 16:57 | PDOC.HOSPP ---
- Subjective Encounter Date: 02/13/19 Encounter Time: 16:55 Subjective: Mr. Wood was seen today in follow-up of respiratory failure. He notes worse dyspnea, and wheezing. - Objective Vital Signs & Weight: Vital Signs (12 hours) Temp Pulse Resp BP Pulse Ox 02/13/19 16:35 98.3 F 119 H 22 H 128/76 96 02/13/19 13:49 112 H 28 H 95 02/13/19 10:57 117 H 20 139/87 94 L 02/13/19 10:53 118 H 24 H 94 L 02/13/19 08:20 97.7 F 113 H 20 131/86 97 02/13/19 06:59 112 H 20 96 Weight Admit Weight 121 lb 0.54 oz Weight 123 lb 3.814 oz Most Recent Monitor Data Heart Rate from ECG 116 NIBP 117/81 NIBP BP-Mean 93 Respiration from ECG 28 SpO2 100 I&O: 02/12/19 02/13/19 02/14/19 06:59 06:59 06:59 Intake Total 1760 Balance 1760 Result Diagrams: 02/13/19 08:19 02/13/19 08:19 Hospitalist ROS - Medication Medications: Active Medications Generic Name Dose Route Start Last Admin Trade Name Freq PRN Reason Stop Dose Admin Hydrocodone Bitart/Acetaminophen 1 tab 02/12/19 12:06 02/13/19 15:35 [place] 5/325 PO 1 tab Q4H PRN Administration Moderate Pain (4-6) Albuterol Sulfate 1.25 mg 02/08/19 14:32 02/12/19 15:57 Albuterol Sulfate NEB 1.25 mg Q8H PRN Administration Wheezing Albuterol/Ipratropium 3 ml 02/08/19 18:30 02/13/19 13:49 Duoneb NEB 3 ml [id number] [facility]ENC[facility] Administration Amitriptyline HCl 25 mg 02/09/19 21:00 02/12/19 20:50 Elavil PO 25 mg HS [facility] Administration Amoxicillin/Clavulanate Potassium 500 mg 02/11/19 12:00 02/13/19 11:47 Augmentin PO 02/18/19 00:01 500 mg 1200,2359 VALENC[facility] Administration Atorvastatin Calcium 80 mg 02/09/19 09:00 02/13/19 08:00 Lipitor PO 80 mg DAILY [facility] Administration Cyclobenzaprine HCl 5 mg 02/09/19 09:00 02/13/19 15:35 Flexeril PO 5 mg TID [facility] Administration Enoxaparin Sodium 40 mg 02/09/19 09:00 02/13/19 08:01 Lovenox SC 40 mg 0900 [facility] Administration Guaifenesin/Dextromethorphan 2 tab 02/10/19 21:00 02/13/19 08:00 Mucinex Dm PO 2 tab Q12HR [facility] Administration Mometasone Furoate/Formoterol Fumar 2 puff 02/09/19 18:30 02/13/19 07:17 Dulera 200 Mcg/5 Mcg Inhaler INH 2 puff BID-RT [facility] Administration Montelukast Sodium 10 mg 02/09/19 09:00 02/13/19 08:00 Singulair PO 10 mg DAILY [facility] Administration Pantoprazole Sodium 40 mg 02/09/19 09:00 02/13/19 08:21 Protonix PO Not Given DAILY [facility] Polyethylene Glycol 17 gm 02/11/19 12:55 02/11/19 13:08 Miralax PO 17 gm DAILYPRN PRN Administration Constipation Prednisone 20 mg 02/10/19 21:00 02/13/19 08:00 Prednisone PO 20 mg BID [facility] Administration Sodium Chloride 10 ml 02/10/19 21:00 02/13/19 08:21 Flush - Normal Saline IVF Not Given Q12HR [facility] Sterile Water 1 ml 02/08/19 15:38 02/08/19 21:20 Bacteriostatic Water FS 1 ml PRN PRN Administration RECONSTITUTION - Exam Eye: PERRL Heart: RRR, no murmur, no gallops, no rubs, normal peripheral pulses Respiratory: wheezes Gastrointestinal: soft, non-tender, non-distended, normal bowel sounds, no palpable masses, no hepatomegaly, no splenomegaly Extremities: no cyanosis, no clubbing, no edema Skin: normal turgor, no lesions, no rashes Hosp A/P (1) Acute on chronic respiratory failure with hypoxemia Code(s): J96.21 - ACUTE AND CHRONIC RESPIRATORY FAILURE WITH HYPOXIA Status: Acute (2) Weight loss, non-intentional Code(s): R63.4 - ABNORMAL WEIGHT LOSS Status: Acute (3) COPD exacerbation Code(s): J44.1 - CHRONIC OBSTRUCTIVE PULMONARY DISEASE W (ACUTE) EXACERBATION Status: Acute (4) Hypertension Code(s): I10 - ESSENTIAL (PRIMARY) HYPERTENSION Status: Chronic - Plan * Acute on chronic respiratory failure-Bunesonide was added to his regimen * AFB smears- continue respiratory isolation and await final AFB culture results * HTN- blood pressure is a bit elevated, but overall stable
[2019-02-13] MEDS: Budesonide 0.5 MG/2 ML NEB INH SCH (18:32)
[2019-02-13] MEDS: Amitriptyline HCl 25 MG TAB PO SCH (20:15)
[2019-02-14] MEDS: Amoxicillin/Potassium Clav 500 MG TAB PO SCH ×3 (01:42→22:57)
[2019-02-14] MEDS: HYDROcodone/Acetaminophen 5/325 mg Tablet PO PRN ×4 (01:46→20:13)
[2019-02-14] MEDS: Mometasone/Formoterol 120 PUFF INHALER INH SCH ×2 (06:37→18:42)
[2019-02-14] MEDS: Budesonide 0.5 MG/2 ML NEB INH SCH ×2 (06:42→18:40)
[2019-02-14] MEDS: Cyclobenzaprine 10 MG TAB PO SCH ×3 (08:45→20:12)
[2019-02-14] MEDS: Montelukast Sodium 10 mg Tablet PO SCH (08:45)
[2019-02-14] MEDS: Atorvastatin Calcium 40 MG TAB PO SCH (08:45)
[2019-02-14] MEDS: guaiFENesin/DM ER PO SCH ×2 (08:45→20:12)
[2019-02-14] MEDS: predniSONE 20 MG TAB PO SCH ×2 (08:46→20:12)
[2019-02-14] MEDS: Pantoprazole 40 MG GRANULES PACKET PO SCH (08:47)
[2019-02-14] MEDS: Enoxaparin Sodium 40 MG/0.4 ML SYRINGE SC SCH (08:56)
--- NOTE | 2019-02-14 09:20 | PRG ---
DATE OF SERVICE: 02/14/2019 SUBJECTIVE: Ernesto Wood, this morning, is complaining of shortness of breath, tells me that he is coughing a large volume of purulent sputum which I saw, this is explained to him this is from his chronic bronchitis and bronchiectasis. he has had this for a period of time. We are still awaiting final identification on his acid- fast. OBJECTIVE: VITAL SIGNS: He is afebrile, temperature 97, pulse is 80, respirations 20, blood [id number]. CHEST: Diffuse rhonchi and wheezing. CARDIAC: Sinus tach. ABDOMEN: Soft. ASSESSMENT: Chronic obstructive pulmonary disease, respiratory failure, cavitary pneumonia, and acid-fast. PLAN: At this stage, continue present treatment. I have added EzPAP. Hopefully, once we get the identification, he can be discharged home. Long-term prognosis is guarded. Job ID: [id number] MTDD
--- NOTE | 2019-02-14 15:07 | PDOC.HOSPP ---
- Subjective Encounter Date: 02/14/19 Encounter Time: 15:05 Subjective: Mr. Wood was seen today in follow-up of respiratory failure. He notes continued dyspnea. - Objective Vital Signs & Weight: Vital Signs (12 hours) Temp Pulse Resp BP Pulse Ox 02/14/19 07:51 96 02/14/19 07:45 97.1 F L 118 H 20 150/94 H 96 02/14/19 06:43 111 H 20 98 02/14/19 06:42 111 H 20 98 02/14/19 06:37 111 H 18 98 Weight Admit Weight 121 lb 0.54 oz Weight 123 lb 3.814 oz Most Recent Monitor Data Heart Rate from ECG 116 NIBP 117/81 NIBP BP-Mean 93 Respiration from ECG 28 SpO2 100 I&O: 02/13/19 02/14/19 02/15/19 06:59 06:59 06:59 Intake Total 1760 1660 Balance 1760 1660 Result Diagrams: 02/13/19 08:19 02/13/19 08:19 Hospitalist ROS - Medication Medications: Active Medications Generic Name Dose Route Start Last Admin Trade Name Freq PRN Reason Stop Dose Admin Hydrocodone Bitart/Acetaminophen 1 tab 02/12/19 12:06 02/14/19 13:26 [place] 5/325 PO 1 tab Q4H PRN Administration Moderate Pain (4-6) Albuterol Sulfate 1.25 mg 02/08/19 14:32 02/12/19 15:57 Albuterol Sulfate NEB 1.25 mg Q8H PRN Administration Wheezing Amitriptyline HCl 25 mg 02/09/19 21:00 02/13/19 20:15 Elavil PO 25 mg HS [facility] Administration Amoxicillin/Clavulanate Potassium 500 mg 02/11/19 12:00 02/14/19 13:26 Augmentin PO 02/18/19 00:01 500 mg 1200,2359 [facility] Administration Atorvastatin Calcium 80 mg 02/09/19 09:00 02/14/19 08:45 Lipitor PO 80 mg DAILY [facility] Administration Budesonide 0.5 mg 02/13/19 18:30 02/14/19 06:42 Pulmicort Neb Solution INH 0.5 mg BID-RT [facility] Administration Cyclobenzaprine HCl 5 mg 02/09/19 09:00 02/14/19 08:45 Flexeril PO 5 mg TID [facility] Administration Enoxaparin Sodium 40 mg 02/09/19 09:00 02/14/19 08:56 Lovenox SC Not Given 0900 [facility] Guaifenesin/Dextromethorphan 2 tab 02/10/19 21:00 02/14/19 08:45 Mucinex Dm PO 2 tab Q12HR [facility] Administration Mometasone Furoate/Formoterol Fumar 2 puff 02/09/19 18:30 02/14/19 06:37 Dulera 200 Mcg/5 Mcg Inhaler INH 2 puff BID-RT [facility]ENCIA Administration Montelukast Sodium 10 mg 02/09/19 09:00 02/14/19 08:45 Singulair PO 10 mg DAILY VALENCIA Administration Pantoprazole Sodium 40 mg 02/09/19 09:00 02/14/19 08:47 Protonix PO Not Given DAILY [facility] Polyethylene Glycol 17 gm 02/11/19 12:55 02/11/19 13:08 Miralax PO 17 gm DAILYPRN PRN Administration Constipation Prednisone 20 mg 02/10/19 21:00 02/14/19 08:46 Prednisone PO 20 mg BID VALENCIA Administration Sodium Chloride 10 ml 02/10/19 21:00 02/14/19 08:56 Flush - Normal Saline IVF Not Given Q12HR [facility] Sterile Water 1 ml 02/08/19 15:38 02/08/19 21:20 Bacteriostatic Water FS 1 ml PRN PRN Administration RECONSTITUTION - Exam Eye: PERRL Heart: RRR, no murmur, no gallops, no rubs, normal peripheral pulses Respiratory: wheezes (Bilateral wheezing and rhonchi) Gastrointestinal: soft, non-tender, non-distended, normal bowel sounds Extremities: no cyanosis, no clubbing, no edema Hosp A/P (1) Acute on chronic respiratory failure with hypoxemia Code(s): J96.21 - ACUTE AND CHRONIC RESPIRATORY FAILURE WITH HYPOXIA Status: Acute (2) Weight loss, non-intentional Code(s): R63.4 - ABNORMAL WEIGHT LOSS Status: Acute (3) COPD exacerbation Code(s): J44.1 - CHRONIC OBSTRUCTIVE PULMONARY DISEASE W (ACUTE) EXACERBATION Status: Acute (4) Hypertension Code(s): I10 - ESSENTIAL (PRIMARY) HYPERTENSION Status: Chronic - Plan * Acute on chronic respiratory failure- continue the current regimen * Positive AFB smears- continue respiratory isolation and await final AFB culture results * HTN- blood pressure is a bit elevated- will add Amlodipine
[2019-02-14 15:10] VITALS: BMI 18.1
[2019-02-14] MEDS: Amitriptyline HCl 25 MG TAB PO SCH (20:13)
[2019-02-15] MEDS: HYDROcodone/Acetaminophen 5/325 mg Tablet PO PRN ×3 (04:31→17:44)
[2019-02-15] MEDS: Mometasone/Formoterol 120 PUFF INHALER INH SCH ×2 (06:33→18:36)
[2019-02-15] MEDS: Budesonide 0.5 MG/2 ML NEB INH SCH ×2 (06:34→18:34)
[2019-02-15] MEDS: Pantoprazole 40 MG GRANULES PACKET PO SCH (08:36)
[2019-02-15] MEDS: Cyclobenzaprine 10 MG TAB PO SCH ×3 (08:36→19:54)
[2019-02-15] MEDS: Montelukast Sodium 10 mg Tablet PO SCH (08:36)
[2019-02-15] MEDS: Amlodipine 5 MG TAB PO SCH (08:37)
[2019-02-15] MEDS: guaiFENesin/DM ER PO SCH ×2 (08:37→19:54)
[2019-02-15] MEDS: Enoxaparin Sodium 40 MG/0.4 ML SYRINGE SC SCH (08:37)
[2019-02-15] MEDS: predniSONE 20 MG TAB PO SCH ×2 (08:37→19:54)
[2019-02-15] MEDS: Atorvastatin Calcium 40 MG TAB PO SCH (08:37)
--- NOTE | 2019-02-15 11:24 | PRG ---
DATE OF SERVICE: 02/15/2019 SUBJECTIVE: This morning, he is still coughing a lot of stuff up. OBJECTIVE: VITAL SIGNS: His sats are 96, temperature 98, pulse 120, and blood pressure 120\76_. CHEST: Extensive rhonchi and crackles. CARDIAC: Normal S1 and S2. No gallops. ABDOMEN: No masses. IMPRESSION: Chronic obstructive pulmonary disease exacerbation, bronchitis, and apical cavitary infiltrate, still awaiting final results, cultures. PLAN: Continue present treatment. Hopefully, he can be discharged home soon. we are still checking the lab regarding his cultures. Job ID: [id number] MTDD
[2019-02-15] MEDS: Amoxicillin/Potassium Clav 500 MG TAB PO SCH ×2 (11:50→23:02)
--- NOTE | 2019-02-15 17:02 | PDOC.HOSPP ---
- Subjective Encounter Date: 02/15/19 Encounter Time: 17:01 Subjective: Mr. Wood was seen today in follow-up. He is breathing a little better. He continues to have some leg swelling. - Objective Vital Signs & Weight: Vital Signs (12 hours) Temp Pulse Resp BP BP Pulse Ox 02/15/19 14:49 115 H 20 95 02/15/19 08:37 98 141/78 H 02/15/19 08:13 98.2 F 127 H 22 H 141/78 H 96 02/15/19 08:00 96 02/15/19 06:35 118 H 20 98 02/15/19 06:34 118 H 20 98 02/15/19 06:33 118 H 20 98 Weight Admit Weight 121 lb 0.54 oz Weight 123 lb 3.814 oz Most Recent Monitor Data Heart Rate from ECG 116 NIBP 117/81 NIBP BP-Mean 93 Respiration from ECG 28 SpO2 100 I&O: 02/14/19 02/15/19 02/16/19 06:59 06:59 06:59 Intake Total 1660 750 Balance 1660 750 Result Diagrams: 02/13/19 08:19 02/13/19 08:19 Hospitalist ROS - Medication Medications: Active Medications Generic Name Dose Route Start Last Admin Trade Name Freq PRN Reason Stop Dose Admin Hydrocodone Bitart/Acetaminophen 1 tab 02/12/19 12:06 02/15/19 08:35 [place] 5/325 PO 1 tab Q4H PRN Administration Moderate Pain (4-6) Albuterol Sulfate 1.25 mg 02/08/19 14:32 02/12/19 15:57 Albuterol Sulfate NEB 1.25 mg Q8H PRN Administration Wheezing Albuterol/Ipratropium 3 ml 02/14/19 08:34 02/15/19 14:49 Duoneb EZPAP 3 ml [id number] PRN Administration SOB &/or Wheezing Amitriptyline HCl 25 mg 02/09/19 21:00 02/14/19 20:13 Elavil PO 25 mg HS VALENCIA Administration Amlodipine Besylate 5 mg 02/15/19 09:00 02/15/19 08:37 Norvasc PO 5 mg DAILY VALENCIA Administration Amoxicillin/Clavulanate Potassium 500 mg 02/11/19 12:00 02/15/19 11:50 Augmentin PO 02/18/19 00:01 500 mg 1200,2359 VALENCIA Administration Atorvastatin Calcium 80 mg 02/09/19 09:00 02/15/19 08:37 Lipitor PO 80 mg DAILY VALENCIA Administration Budesonide 0.5 mg 02/13/19 18:30 02/15/19 06:34 Pulmicort Neb Solution INH 0.5 mg BID-RT VALENCIA Administration Cyclobenzaprine HCl 5 mg 02/09/19 09:00 02/15/19 14:32 Flexeril PO 5 mg TID VALENCIA Administration Enoxaparin Sodium 40 mg 02/09/19 09:00 02/15/19 08:37 Lovenox SC Not Given 09 [facility] Guaifenesin/Dextromethorphan 2 tab 02/10/19 21:00 02/15/19 08:37 Mucinex Dm PO 2 tab Q12HR [facility]ENCIA Administration Mometasone Furoate/Formoterol Fumar 2 puff 02/09/19 18:30 02/15/19 06:33 Dulera 200 Mcg/5 Mcg Inhaler INH 2 puff BID-RT [facility] Administration Montelukast Sodium 10 mg 02/09/19 09:00 02/15/19 08:36 Singulair PO 10 mg DAILY VALENCIA Administration Pantoprazole Sodium 40 mg 02/09/19 09:00 02/15/19 08:36 Protonix PO 40 mg DAILY VALENCIA Administration Polyethylene Glycol 17 gm 02/11/19 12:55 02/11/19 13:08 Miralax PO 17 gm DAILYPRN PRN Administration Constipation Prednisone 20 mg 02/10/19 21:00 02/15/19 08:37 Prednisone PO 20 mg BID VALENCIA Administration Sodium Chloride 10 ml 02/10/19 21:00 02/15/19 08:38 Flush - Normal Saline IVF Not Given Q12HR [facility] Sterile Water 1 ml 02/08/19 15:38 02/08/19 21:20 Bacteriostatic Water FS 1 ml PRN PRN Administration RECONSTITUTION - Exam Eye: PERRL Heart: RRR, no murmur, no gallops, no rubs, normal peripheral pulses Respiratory: rales (+ bilateral wheezing rhonchi and rales), rhonchi, wheezes Gastrointestinal: soft, non-tender, non-distended, normal bowel sounds, no palpable masses, no hepatomegaly Extremities: 1+ LE edema Hosp A/P (1) Acute on chronic respiratory failure with hypoxemia Code(s): J96.21 - ACUTE AND CHRONIC RESPIRATORY FAILURE WITH HYPOXIA Status: Acute (2) Weight loss, non-intentional Code(s): R63.4 - ABNORMAL WEIGHT LOSS Status: Acute (3) COPD exacerbation Code(s): J44.1 - CHRONIC OBSTRUCTIVE PULMONARY DISEASE W (ACUTE) EXACERBATION Status: Acute (4) Hypertension Code(s): I10 - ESSENTIAL (PRIMARY) HYPERTENSION Status: Chronic - Plan * Acute on chronic respiratory failure- continue the current regimen- he appears to be showing some improvement * Positive AFB smears- continue respiratory isolation and await final AFB culture results * HTN- continue Amlodipine
[2019-02-15] MEDS: Amitriptyline HCl 25 MG TAB PO SCH (19:54)
[2019-02-16] MEDS: Atorvastatin Calcium 40 MG TAB PO SCH (07:35)
[2019-02-16] MEDS: Cyclobenzaprine 10 MG TAB PO SCH ×3 (07:35→19:55)
[2019-02-16] MEDS: Amlodipine 5 MG TAB PO SCH (07:36)
[2019-02-16] MEDS: Montelukast Sodium 10 mg Tablet PO SCH (07:36)
[2019-02-16] MEDS: guaiFENesin/DM ER PO SCH ×2 (07:36→19:55)
[2019-02-16] MEDS: Pantoprazole 40 MG GRANULES PACKET PO SCH (07:36)
[2019-02-16] MEDS: Enoxaparin Sodium 40 MG/0.4 ML SYRINGE SC SCH (07:37)
[2019-02-16] MEDS: predniSONE 20 MG TAB PO SCH ×2 (07:39→19:57)
[2019-02-16] MEDS: Budesonide 0.5 MG/2 ML NEB INH SCH ×2 (07:59→18:39)
[2019-02-16] MEDS: Mometasone/Formoterol 120 PUFF INHALER INH SCH ×2 (08:00→18:41)
--- NOTE | 2019-02-16 09:35 | PRG ---
DATE OF SERVICE: 02/16/2019 SUBJECTIVE: This morning, somewhat better, still coughing a large volume of pus. OBJECTIVE: VITAL SIGNS: Temperature 97.0, pulse 116, respiratory rate blood pressure 140/85. CHEST: Extensive wheezing, rhonchi. CARDIAC: Normal S1, S2. IMPRESSION: 1. Chronic obstructive pulmonary disease exacerbation, bronchitis, bronchiectasis. 2. Right upper lung cavitary infiltrate. Positive acid-fast, awaiting final identification. PLAN: So, we have an idea on his acid-fast, he can be discharged home. Continue supportive care, PT, aggressive neb treatments. Refrain from smoking. Job ID: [id number]
[2019-02-16] MEDS: Amoxicillin/Potassium Clav 500 MG TAB PO SCH ×2 (12:05→23:31)
[2019-02-16] MEDS: HYDROcodone/Acetaminophen 5/325 mg Tablet PO PRN ×2 (12:13→23:31)
--- NOTE | 2019-02-16 15:08 | PDOC.HOSPP ---
- Subjective Encounter Date: 02/16/19 Encounter Time: 15:06 Subjective: Mr. Wood was seen today in follow-up of respiratory failure, and mycobacterial infection. He is doing a little better, but admits to having " ups and downs". - Objective Vital Signs & Weight: Vital Signs (12 hours) Temp Pulse Resp BP BP Pulse Ox 02/16/19 08:23 97.9 F 117 H 20 144/85 H 97 02/16/19 08:00 110 H 16 96 02/16/19 07:59 102 H 20 02/16/19 07:36 102 H 145/77 H Weight Admit Weight 121 lb 0.54 oz Weight 123 lb 3.814 oz Most Recent Monitor Data Heart Rate from ECG 116 NIBP 117/81 NIBP BP-Mean 93 Respiration from ECG 28 SpO2 100 I&O: 02/15/19 02/16/19 02/17/19 06:59 06:59 06:59 Intake Total 750 Balance 750 Result Diagrams: 02/13/19 08:19 02/13/19 08:19 Hospitalist ROS - Medication Medications: Active Medications Generic Name Dose Route Start Last Admin Trade Name Freq PRN Reason Stop Dose Admin Hydrocodone Bitart/Acetaminophen 1 tab 02/12/19 12:06 02/16/19 12:13 [place] 5/325 PO 1 tab Q4H PRN Administration Moderate Pain (4-6) Albuterol Sulfate 1.25 mg 02/08/19 14:32 02/12/19 15:57 Albuterol Sulfate NEB 1.25 mg Q8H PRN Administration Wheezing Albuterol/Ipratropium 3 ml 02/14/19 08:34 02/15/19 14:49 Duoneb EZPAP 3 ml [id number] PRN Administration SOB &/or Wheezing Amitriptyline HCl 25 mg 02/09/19 21:00 02/15/19 19:54 Elavil PO 25 mg HS VALENCIA Administration Amlodipine Besylate 5 mg 02/15/19 09:00 02/16/19 07:36 Norvasc PO 5 mg DAILY VALENCIA Administration Amoxicillin/Clavulanate Potassium 500 mg 02/11/19 12:00 02/16/19 12:05 Augmentin PO 02/18/19 00:01 500 mg 1200,2359 [facility] Administration Atorvastatin Calcium 80 mg 02/09/19 09:00 02/16/19 07:35 Lipitor PO 80 mg DAILY [facility]ENCIA Administration Budesonide 0.5 mg 02/13/19 18:30 02/16/19 07:59 Pulmicort Neb Solution INH 0.5 mg BID-RT VALENCIA Administration Cyclobenzaprine HCl 5 mg 02/09/19 09:00 02/16/19 14:13 Flexeril PO 5 mg TID VALENCIA Administration Enoxaparin Sodium 40 mg 02/09/19 09:00 02/16/19 07:37 Lovenox SC Not Given 0900 [facility] Guaifenesin/Dextromethorphan 2 tab 02/10/19 21:00 02/16/19 07:36 Mucinex Dm PO 2 tab Q12HR [facility] Administration Mometasone Furoate/Formoterol Fumar 2 puff 02/09/19 18:30 02/16/19 08:00 Dulera 200 Mcg/5 Mcg Inhaler INH 2 puff BID-RT [facility]IA Administration Montelukast Sodium 10 mg 02/09/19 09:00 02/16/19 07:36 Singulair PO 10 mg DAILY [facility] Administration Pantoprazole Sodium 40 mg 02/09/19 09:00 02/16/19 07:36 Protonix PO 40 mg DAILY [facility] Administration Polyethylene Glycol 17 gm 02/11/19 12:55 02/11/19 13:08 Miralax PO 17 gm DAILYPRN PRN Administration Constipation Prednisone 20 mg 02/10/19 21:00 02/16/19 07:39 Prednisone PO 20 mg BID VALENCIA Administration Sodium Chloride 10 ml 02/10/19 21:00 02/16/19 07:37 Flush - Normal Saline IVF Not Given Q12HR [facility] Sterile Water 1 ml 02/08/19 15:38 02/08/19 21:20 Bacteriostatic Water FS 1 ml PRN PRN Administration RECONSTITUTION - Exam Eye: PERRL Heart: RRR, no murmur, no gallops, no rubs, normal peripheral pulses Respiratory: wheezes Gastrointestinal: soft, non-tender, non-distended, normal bowel sounds, no palpable masses, no hepatomegaly, no splenomegaly Extremities: no cyanosis, 1+ LE edema Hosp A/P (1) Acute on chronic respiratory failure with hypoxemia Code(s): J96.21 - ACUTE AND CHRONIC RESPIRATORY FAILURE WITH HYPOXIA Status: Acute (2) Weight loss, non-intentional Code(s): R63.4 - ABNORMAL WEIGHT LOSS Status: Acute (3) COPD exacerbation Code(s): J44.1 - CHRONIC OBSTRUCTIVE PULMONARY DISEASE W (ACUTE) EXACERBATION Status: Acute (4) Hypertension Code(s): I10 - ESSENTIAL (PRIMARY) HYPERTENSION Status: Chronic (5) Malnutrition of moderate degree Code(s): E44.0 - MODERATE PROTEIN-CALORIE MALNUTRITION Status: Chronic - Plan * Acute on chronic respiratory failure- * Mycobacterial infection- awaiting final culture results * COPD- stable * HTN- continue Amlodipine * Moderate protein calorie malnutrition- his appetite is improving- nutritional supplements as needed
[2019-02-16] MEDS: Amitriptyline HCl 25 MG TAB PO SCH (19:55)
[2019-02-17] MEDS: Cyclobenzaprine 10 MG TAB PO SCH ×3 (07:50→20:12)
[2019-02-17] MEDS: Enoxaparin Sodium 40 MG/0.4 ML SYRINGE SC SCH (07:50)
[2019-02-17] MEDS: Montelukast Sodium 10 mg Tablet PO SCH (07:51)
[2019-02-17] MEDS: Amlodipine 5 MG TAB PO SCH (07:51)
[2019-02-17] MEDS: guaiFENesin/DM ER PO SCH ×2 (07:51→20:12)
[2019-02-17] MEDS: Atorvastatin Calcium 40 MG TAB PO SCH (07:52)
[2019-02-17] MEDS: Pantoprazole 40 MG GRANULES PACKET PO SCH (07:52)
[2019-02-17] MEDS: predniSONE 20 MG TAB PO SCH ×2 (07:52→20:12)
[2019-02-17] MEDS: HYDROcodone/Acetaminophen 5/325 mg Tablet PO PRN ×4 (07:59→20:12)
[2019-02-17 08:42] LABS: #Eosinphils 0.3 thou/uL (0.0-0.7); #Lymphocytes 1.3 thou/uL (1.20-3.40); #Monocytes 2.1 thou/uL (0.11-0.59); #Neutrophils 15.9 thou/uL (1.40-6.50); %Basophils 0.1 % (0.0-1.0); %Eosinophils 1.7 % (0.0-10.0); %Lymphocytes 6.7 % (21.0-51.0); %Monocytes 10.9 % (0.0-10.0); %Neutrophils 80.7 % (42.0-75.0); Mean Corpuscular HGB CONC 32.1 g/dL (32.0-36.0); Mean Corpuscular Hemoglobin 30.1 pg (27.0-31.0); Mean Platelet Volume 7.1 fL (7.4-10.4); Platelet Count 221 thou/uL (130-400); RBC Distribution Width 15.5 % (11.5-14.5); Red Blood Cell (RBC) Count 4.32 mill/uL (4.70-6.10); White Blood Cell (WBC) Count 19.7 thou/uL (4.8-10.8)
[2019-02-17 08:57] LABS: Anion Gap 11 mmol/L (10-20); BUN (Urea Nitrogen) 18 mg/dL (8.4-25.7); Calc. Creatinine Clearance 103 mL/min (70-130); Calcium 8.1 mg/dL (7.8-10.44); Carbon Dioxide 28 mmol/L (23-31); Chloride 104 mmol/L (98-107); Estimated GFR-MDRD Greater than 90; Glucose 113 mg/dL (80-115); Potassium 3.5 mmol/L (3.5-5.1); Sodium 139 mmol/L (136-145)
[2019-02-17] MEDS: Mometasone/Formoterol 120 PUFF INHALER INH SCH ×2 (11:01→18:39)
[2019-02-17] MEDS: Budesonide 0.5 MG/2 ML NEB INH SCH ×2 (11:01→18:35)
[2019-02-17] MEDS: Amoxicillin/Potassium Clav 500 MG TAB PO SCH (11:58)
--- NOTE | 2019-02-17 20:00 | PDOC.HOSPP ---
- Subjective Encounter Date: 02/17/19 Encounter Time: 14:00 Subjective: Patient has productive cough but it is improving. Has some shortness of breath. Curious as to how he contracted this infection. 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 He has lost about 30 pounds, reported night sweats and fevers prior to this. AFB pending, per patient Dr. Omalley wanted him here until Tuesday - Objective Vital Signs & Weight: Vital Signs (12 hours) Pulse Resp Pulse Ox 02/17/19 18:35 113 H 20 96 02/17/19 08:00 94 L Weight Admit Weight 121 lb 0.54 oz Weight 123 lb 3.814 oz Most Recent Monitor Data Heart Rate from ECG 116 NIBP 117/81 NIBP BP-Mean 93 Respiration from ECG 28 SpO2 100 Result Diagrams: 02/17/19 06:37 02/17/19 06:37 Hospitalist ROS - Review of Systems Constitutional: denies: fever, chills - Medication Medications: Active Medications Generic Name Dose Route Start Last Admin Trade Name Freq PRN Reason Stop Dose Admin Hydrocodone Bitart/Acetaminophen 1 tab 02/12/19 12:06 02/17/19 16:34 [place] 5/325 PO 1 tab Q4H PRN Administration Moderate Pain (4-6) Albuterol Sulfate 1.25 mg 02/08/19 14:32 02/12/19 15:57 Albuterol Sulfate NEB 1.25 mg Q8H PRN Administration Wheezing Albuterol/Ipratropium 3 ml 02/14/19 08:34 02/17/19 18:39 Duoneb EZPAP 3 ml [id number] PRN Administration SOB &/or Wheezing Amitriptyline HCl 25 mg 02/09/19 21:00 02/16/19 19:55 Elavil PO 25 mg HS [facility]IA Administration Amlodipine Besylate 5 mg 02/15/19 09:00 02/17/19 07:51 Norvasc PO 5 mg DAILY [facility] Administration Amoxicillin/Clavulanate Potassium 500 mg 02/11/19 12:00 02/17/19 11:58 Augmentin PO 02/18/19 00:01 500 mg 1200,2359 [facility] Administration Atorvastatin Calcium 80 mg 02/09/19 09:00 02/17/19 07:52 Lipitor PO 80 mg DAILY [facility] Administration Budesonide 0.5 mg 02/13/19 18:30 02/17/19 18:35 Pulmicort Neb Solution INH 0.5 mg BID-RT [facility] Administration Cyclobenzaprine HCl 5 mg 02/09/19 09:00 02/17/19 14:28 Flexeril PO 5 mg TID [facility] Administration Enoxaparin Sodium 40 mg 02/09/19 09:00 02/17/19 07:50 Lovenox SC Not Given 0900 [facility] Guaifenesin/Dextromethorphan 2 tab 02/10/19 21:00 02/17/19 07:51 Mucinex Dm PO 2 tab Q12HR [facility] Administration Mometasone Furoate/Formoterol Fumar 2 puff 02/09/19 18:30 02/17/19 18:39 Dulera 200 Mcg/5 Mcg Inhaler INH 2 puff BID-RT [facility] Administration Montelukast Sodium 10 mg 02/09/19 09:00 02/17/19 07:51 Singulair PO 10 mg DAILY [facility] Administration Pantoprazole Sodium 40 mg 02/09/19 09:00 02/17/19 07:52 Protonix PO 40 mg DAILY [facility] Administration Polyethylene Glycol 17 gm 02/11/19 12:55 02/11/19 13:08 Miralax PO 17 gm DAILYPRN PRN Administration Constipation Prednisone 20 mg 02/10/19 21:00 02/17/19 07:52 Prednisone PO 20 mg BID [facility] Administration Sodium Chloride 10 ml 02/10/19 21:00 02/17/19 07:53 Flush - Normal Saline IVF Not Given Q12HR [facility] Sterile Water 1 ml 02/08/19 15:38 02/08/19 21:20 Bacteriostatic Water FS 1 ml PRN PRN Administration RECONSTITUTION - Exam General Appearance: NAD, awake alert Eye: PERRL, anicteric sclera ENT: normocephalic atraumatic, no oropharyngeal lesions Neck: supple, symmetric Heart: RRR, no murmur, no gallops, no rubs Respiratory: CTAB Respiratory - other findings: mild wheezin at base Gastrointestinal: soft, non-tender, non-distended Extremities: no cyanosis, no clubbing, no edema Skin: normal turgor, no lesions, no rashes Hosp A/P - Plan Chest X ray: right apical cavitary lesion, Pulm nodules right mid to lower lung zone. This is 64 year old male who presented with cough, fevers, chills, weight loss Acute hypoxic respiratory failure - secondary to pneumonia vs MAC infection Right cavitary lesion with pulmonary nodules - AFB stain positive, culture prelimi negative. Currently on augmentin, WBC slightly elevated at 19, but patient clinically doing okay - f/u final AFB culture - HUI negative, ANCA negative, rheumatoid factor negative - IGG, IGA normal, IGM slightly elevated - SPEP negative - needs home oxygen evaluation prior to d/c , currently on 2L nasal cannula Anemia - HB stable at 9 - check iron panel, B12, folate - SPEP negative Chronic pain - amitryptyline - hydrocodone - flexeril Leukocytosis - WBC 19.7, no fevers, continue current antibiotics for now Code status: full code DVT prophylaxis: lovenox
[2019-02-17] MEDS: Amitriptyline HCl 25 MG TAB PO SCH (20:12)
[2019-02-18] MEDS: HYDROcodone/Acetaminophen 5/325 mg Tablet PO PRN ×5 (00:02→17:40)
[2019-02-18] MEDS: Amoxicillin/Potassium Clav 500 MG TAB PO SCH (00:02)
[2019-02-18] MEDS: Budesonide 0.5 MG/2 ML NEB INH SCH ×2 (06:26→19:42)
[2019-02-18] MEDS: Albuterol Sulfate 1.25 MG/3 ML NEB NEB PRN (06:26)
[2019-02-18] MEDS: Mometasone/Formoterol 120 PUFF INHALER INH SCH ×2 (06:45→19:43)
[2019-02-18] MEDS: Montelukast Sodium 10 mg Tablet PO SCH (08:42)
[2019-02-18] MEDS: guaiFENesin/DM ER PO SCH ×2 (08:43→21:13)
[2019-02-18] MEDS: Cyclobenzaprine 10 MG TAB PO SCH ×3 (08:43→21:13)
[2019-02-18] MEDS: Atorvastatin Calcium 40 MG TAB PO SCH (08:43)
[2019-02-18] MEDS: Amlodipine 5 MG TAB PO SCH (08:43)
[2019-02-18] MEDS: Enoxaparin Sodium 40 MG/0.4 ML SYRINGE SC SCH ×2 (08:44→08:54)
[2019-02-18] MEDS: predniSONE 20 MG TAB PO SCH ×2 (08:44→21:13)
[2019-02-18 12:42] LABS: #Eosinphils 0.2 thou/uL (0.0-0.7); #Lymphocytes 0.7 thou/uL (1.20-3.40); #Monocytes 1.3 thou/uL (0.11-0.59); #Neutrophils 17.4 thou/uL (1.40-6.50); %Basophils 0.2 % (0.0-1.0); %Eosinophils 0.8 % (0.0-10.0); %Lymphocytes 3.8 % (21.0-51.0); %Monocytes 6.5 % (0.0-10.0); %Neutrophils 88.8 % (42.0-75.0); Hemoglobin 13.5 g/dL (14.0-18.0); Mean Corpuscular Hemoglobin 30.3 pg (27.0-31.0); Mean Corpuscular Volume 94.8 fL (78.0-98.0); Mean Platelet Volume 6.6 fL (7.4-10.4); Platelet Count 215 thou/uL (130-400); RBC Distribution Width 15.5 % (11.5-14.5); Red Blood Cell (RBC) Count 4.46 mill/uL (4.70-6.10); White Blood Cell (WBC) Count 19.5 thou/uL (4.8-10.8)
--- NOTE | 2019-02-18 21:10 | PRG ---
DATE OF SERVICE: 02/18/2019 SUBJECTIVE: Ernesto Wood is in no distress. He wants to go home desperately. OBJECTIVE: VITAL SIGNS: He is afebrile. Heart rate is 107, respiratory rates in the 20s, oximetry is 96% on room air, blood pressure 120/70. LUNGS: Clear. HEART: Regular rhythm. ABDOMEN: Soft. IMPRESSION: Acid-fast bacilli on smear, but no growth to date on cultures. It would not be unreasonable to send him home. To await these culture results. Treat him empirically with p.o. antimicrobial therapy to cover for bacterial lung pathogens. It is unknown when these culture results will be finalized. Job ID: [id number]
[2019-02-18] MEDS: HYDROcodone/Acetaminophen 7.5/325 mg Tablet PO PRN (21:13)
[2019-02-18] MEDS: Amitriptyline HCl 25 MG TAB PO SCH (21:13)
--- NOTE | 2019-02-18 23:34 | PDOC.HOSPP ---
- Subjective Encounter Date: 02/18/19 Encounter Time: 17:00 Subjective: THe patient is coughing abundant amount of thick phlegm. Wants to go home tomorrow regardless of culture results. Denies chest pain. He states he is having some back pain, wants his soma but they don't have it here. Did not want flexeril, lidocaine patch or additional medicine. Asked for his norco - Objective Vital Signs & Weight: Vital Signs (12 hours) Temp Pulse Resp BP Pulse Ox 02/18/19 19:59 97.6 F 121 H 16 137/87 94 L 02/18/19 19:47 95 02/18/19 19:42 22 H 02/18/19 12:41 97.5 F L 107 H 22 H 120/70 96 Weight Admit Weight 121 lb 0.54 oz Weight 123 lb 3.814 oz Most Recent Monitor Data Heart Rate from ECG 116 NIBP 117/81 NIBP BP-Mean 93 Respiration from ECG 28 SpO2 100 I&O: 02/17/19 02/18/19 02/19/19 06:59 06:59 06:59 Intake Total 720 960 Balance 720 960 Result Diagrams: 02/18/19 12:24 02/17/19 06:37 Hospitalist ROS - Review of Systems Constitutional: denies: fever, chills Respiratory: reports: cough, SOB with excertion - Medication Medications: Active Medications Generic Name Dose Route Start Last Admin Trade Name Freq PRN Reason Stop Dose Admin Hydrocodone Bitart/Acetaminophen 1 tab 02/18/19 20:25 02/18/19 21:13 [place] 7.5/325 PO 1 tab Q4H PRN Administration Severe Pain (7-10) Albuterol Sulfate 1.25 mg 02/08/19 14:32 02/18/19 06:26 Albuterol Sulfate NEB 1.25 mg Q8H PRN Administration Wheezing Albuterol/Ipratropium 3 ml 02/14/19 08:34 02/18/19 04:35 Duoneb EZPAP 3 ml [id number] PRN Administration SOB &/or Wheezing Amitriptyline HCl 25 mg 02/09/19 21:00 02/18/19 21:13 Elavil PO 25 mg HS VALENCIA Administration Amlodipine Besylate 5 mg 02/15/19 09:00 02/18/19 08:43 Norvasc PO 5 mg DAILY VALENCIA Administration Atorvastatin Calcium 80 mg 02/09/19 09:00 02/18/19 08:43 Lipitor PO 80 mg DAILY VALENCIA Administration Budesonide 0.5 mg 02/13/19 18:30 02/18/19 19:42 Pulmicort Neb Solution INH 0.5 mg BID-RT VALENCIA Administration Cyclobenzaprine HCl 5 mg 02/09/19 09:00 02/18/19 21:13 Flexeril PO 5 mg TID VALENCIA Administration Enoxaparin Sodium 40 mg 02/09/19 09:00 02/18/19 08:54 Lovenox SC Not Given 0900 VALENCIA Guaifenesin/Dextromethorphan 2 tab 02/10/19 21:00 02/18/19 21:13 Mucinex Dm PO 2 tab Q12HR VALENCIA Administration Mometasone Furoate/Formoterol Fumar 2 puff 02/09/19 18:30 02/18/19 19:43 Dulera 200 Mcg/5 Mcg Inhaler INH 2 puff BID-RT VALENCIA Administration Montelukast Sodium 10 mg 02/09/19 09:00 02/18/19 08:42 Singulair PO 10 mg DAILY VALENCIA Administration Pantoprazole Sodium 40 mg 02/18/19 09:00 02/18/19 08:43 Protonix PO 40 mg DAILY VALENCIA Administration Polyethylene Glycol 17 gm 02/11/19 12:55 02/11/19 13:08 Miralax PO 17 gm DAILYPRN PRN Administration Constipation Prednisone 20 mg 02/10/19 21:00 02/18/19 21:13 Prednisone PO 20 mg BID VALENCIA Administration Sodium Chloride 10 ml 02/10/19 21:00 02/18/19 21:13 Flush - Normal Saline IVF Not Given Q12HR VALENCIA Sterile Water 1 ml 02/08/19 15:38 02/08/19 21:20 Bacteriostatic Water FS 1 ml PRN PRN Administration RECONSTITUTION - Exam General Appearance: NAD, awake alert Eye: PERRL, anicteric sclera ENT: normocephalic atraumatic, no oropharyngeal lesions Neck: supple, symmetric, no JVD Heart: RRR, no murmur, no gallops, no rubs, normal peripheral pulses Respiratory: no rales, no ronchi, normal chest expansion Respiratory - other findings: diffuse wheezing Gastrointestinal: soft, non-tender, non-distended Extremities: no cyanosis, no clubbing, no edema Skin: normal turgor, no lesions, no rashes Neurological: cranial nerve grossly intact, no weakness, no focal deficits Musculoskeletal: normal tone, normal strength, no muscle wasting Hosp A/P - Plan Chest X ray: right apical cavitary lesion, Pulm nodules right mid to lower lung zone. This is 64 year old male who presented with cough, fevers, chills, weight loss Acute hypoxic respiratory failure - secondary to pneumonia vs MAC infection Right cavitary lesion with pulmonary nodules - AFB stain positive, culture prelimi negative. Currently on augmentin, WBC slightly elevated at 19.5, but patient clinically doing okay - f/u final AFB culture . Sputum culture grew normal respiratory delonte and many gram negative rods - HUI negative, ANCA negative, rheumatoid factor negative - IGG, IGA normal, IGM slightly elevated - SPEP negative - needs home oxygen evaluation prior to d/c , currently on 2L nasal cannula Anemia - HB stable at 9 - check iron panel, B12, folate - SPEP negative Chronic pain - amitryptyline - hydrocodone - flexeril Leukocytosis - WBC 19.7, no fevers, continue current antibiotics for now Code status: full code DVT prophylaxis: lovenox
[2019-02-19] MEDS: HYDROcodone/Acetaminophen 7.5/325 mg Tablet PO PRN ×3 (02:17→09:56)
[2019-02-19] MEDS: Budesonide 0.5 MG/2 ML NEB INH SCH (06:31)
[2019-02-19] MEDS: Mometasone/Formoterol 120 PUFF INHALER INH SCH (06:33)
[2019-02-19 06:50] LABS: Hemoglobin 14.2 g/dL (14.0-18.0); Mean Corpuscular HGB CONC 31.8 g/dL (32.0-36.0); Mean Corpuscular Hemoglobin 30.4 pg (27.0-31.0); Mean Corpuscular Volume 95.6 fL (78.0-98.0); Platelet Count 176 thou/uL (130-400); RBC Distribution Width 15.4 % (11.5-14.5); Red Blood Cell (RBC) Count 4.68 mill/uL (4.70-6.10); White Blood Cell (WBC) Count 21.7 thou/uL (4.8-10.8)
[2019-02-19 07:11] LABS: ALT (SGPT) 53 U/L (8-55); AST (SGOT) 32 U/L (5-34); Albumin 3.4 g/dL (3.4-4.8); Alkaline Phosphatase 123 U/L (40-110); Anion Gap 12 mmol/L (10-20); BUN (Urea Nitrogen) 20 mg/dL (8.4-25.7); Bilirubin, Total 0.4 mg/dL (0.2-1.2); Calc. Creatinine Clearance 87 mL/min (70-130); Calcium 8.4 mg/dL (7.8-10.44); Carbon Dioxide 28 mmol/L (23-31); Chloride 102 mmol/L (98-107); Estimated GFR-MDRD Greater than 90; Glucose 138 mg/dL (80-115); Iron 120 ug/dL (65-175); Iron Binding Capacity, Total 340 mcg/dL (261-462); Potassium 4.5 mmol/L (3.5-5.1); Protein, Total 6.4 g/dL (5.8-8.1); Sodium 137 mmol/L (136-145)
[2019-02-19 07:31] LABS: Ferritin 88.25 ng/mL (22-322)
[2019-02-19 07:52] VITALS: TEMP 97.8
[2019-02-19] MEDS: Amlodipine 5 MG TAB PO SCH (08:53)
[2019-02-19] MEDS: guaiFENesin/DM ER PO SCH (08:54)
[2019-02-19] MEDS: Cyclobenzaprine 10 MG TAB PO SCH (08:54)
[2019-02-19] MEDS: Montelukast Sodium 10 mg Tablet PO SCH (08:54)
[2019-02-19] MEDS: Enoxaparin Sodium 40 MG/0.4 ML SYRINGE SC SCH (08:54)
[2019-02-19] MEDS: predniSONE 20 MG TAB PO SCH (08:54)
[2019-02-19] MEDS ORDERED: Lidocaine Patch Removal TOP SCH (09:00)
[2019-02-19] MEDS: Atorvastatin Calcium 40 MG TAB PO SCH (09:55)
--- NOTE | 2019-02-19 10:14 | PRG ---
DATE OF SERVICE: 02/19/2019 SUBJECTIVE: This morning, he is better. He wants to go home. He is still coughing a large volume of sputum purulent Temperature 97, pulse 113, blood pressure 100/76, respirations 20. CHEST: Decreased breath sounds, diffuse rhonchi, wheezing, crackles. CARDIAC: Normal S1 and S2. No gallops. ABDOMEN: No masses. LAB[place]ATORY DATA: [place] [address], hemoglobin and hematocrit unremarkable. IMPRESSION: Chronic obstructive pulmonary disease exacerbation, bronchitis without upper lung cavitary infiltrate, still no growth. PLAN: He can be discharged home. Avoid going out in the open. Once he have identification for further recommendation. Job ID: [id number] [facility]
--- NOTE | 2019-02-19 11:24 | PRG ---
DATE OF SERVICE: 02/17/2019 SUBJECTIVE: Ernesto Wood has no complaints other than wanting to go home. His acid-fast cultures are no growth so far. He did have positive smear. OBJECTIVE: VITAL SIGNS: He is afebrile, heart rate is 102, respiratory rate is 22, oximetry is 94, and blood pressure 125/75. LUNGS: Distant, clear. HEART: Regular rhythm. ABDOMEN: Soft. IMPRESSION: 1. Chronic obstructive pulmonary disease. 2. Bronchitis. 3. Bronchiectasis. 4. Right upper lobe cavitary infiltrate. Acid-fast smear. Awaiting ID. We will continue to follow. Job ID: [id number] MTDD
[2019-02-19 14:49] VITALS: BP 123/77
[2019-02-19] MEDS ORDERED: Lidocaine 5% Patch TD SCH (21:00)
--- NOTE | 2019-02-20 02:09 | DIS ---
DATE OF ADMISSION: 02/08/2019 DATE OF DISCHARGE: 02/19/2019 DISCHARGE DIAGNOSES: Acute hypoxic respiratory failure secondary to pneumonia versus mycobacterial infection, right cavitary lesion with pulmonary nodules, folate deficiency anemia, leukocytosis, chronic obstructive pulmonary disease exacerbation possible. CONSULTATIONS: Pulmonary with Dr. Omalley. PROCEDURES: None. BRIEF HISTORY OF PRESENT ILLNESS: This is a 64-year-old male with a past medical history of COPD, chronic nicotine dependence, partial lobectomy of his right lung 3 years ago, who presented to the ER for 2-month history of paroxysmal nocturnal dyspnea, cough, and wheezing. The patient reported that he was recently admitted for similar complaints back in October and was treated for COPD exacerbation and was discharged on ciprofloxacin. There was no improvement in his symptoms since then and he had reported a 40-pound weight loss. He also had some diarrhea and some blood tinged sputum. On arrival to the ER, the patient had a blood pressure of 115/61. He was noted to be tachycardic. His white blood cell count was 21.7. His ABG showed a pH of 7.47, pCO2 of 32.8, and he was placed on BiPAP initially. The patient was initially admitted to the ICU. He was started on IV Zosyn. He was also given IV steroids and DuoNeb. HOSPITAL COURSE: Mycobacterial infection/possible pneumonia/acute COPD exacerbation: The patient was initially in the ICU, but was eventually transitioned to the floor on nasal cannula. The patient was treated with IV Zosyn from the to and then was transitioned to oral Augmentin from the to . The patient did have a CTA done of his chest, which showed multiple thick-walled cavitary pulmonary nodules and noncavitary solid pulmonary nodules. The patient was placed in airborne isolation. His AFB stain initially came back positive for 4 to 36 acid-fast bacilli. Preliminary culture results, however, have been negative. The patient was monitored in the hospital for over a week; however, cultures at this time are still pending. Autoimmune workup was negative. The patient was also treated for COPD exacerbation with scheduled nebulizers and steroids. After discussion with Dr. Omalley, he will be discharged with steroids for another 20 days and the patient will be called if his acid-fast bacilli culture come back positive. There is a high suspicion of MAC infection. Sputum culture showed normal respiratory delonte with some gram-negative rods. Blood cultures were negative x2. Influenza panel was negative. The patient was evaluated for home oxygen on discharge and he maintained saturations above 93% on ambulation and at rest. After discussion with Case Management, his insurance will not cover any oxygen despite the fact that the patient is tachycardic. The patient had an extensive workup for rheumatologic etiology and tested negative for ANCA, rheumatoid factor, HUI. His IgM was slightly elevated, but IgG and IgA were normal. He did have some fragments of Celine in pleural fluid, will discuss with Dr. Omalley about whether this needs treatment Folate deficiency anemia: The patient was noted to have a hemoglobin of 9. Folate levels were checked which were low and the patient was started on folic acid 1 mg daily. He is advised to eat more green leafy vegetables. His iron panel and his B12 were unremarkable. He had an SPEP done as well that was normal. Leukocytosis: The patient was noted to have a persistent leukocytosis ranging from 18 to 21. It was 21.7 on the day of discharge. This may be secondary to his steroids. He has not spiked any fevers during his hospital course. Therefore, this could be followed up as an outpatient. Chronic pain: The patient was resumed on his outpatient home medications. DISCHARGE PHYSICAL EXAMINATION: VITAL SIGNS: Temperature 97.8, heart rate 117, respiratory rate 20, O2 saturations 96% on room air, blood pressure 123/77. GENERAL: The patient appears malnourished and slightly tachypneic and tachycardic. He is on room air and saturating 97%. CVS: Sinus tachycardia with no murmurs, rubs, or gallops. LUNGS: Diffuse wheezing bilaterally. ABDOMEN: Positive bowel sounds, soft, nontender, nondistended. EXTREMITIES: No edema. PERTINENT LABORATORY DATA: CBC on 02/19: White blood cell count was 21.7, hemoglobin was 14.2. BMP 02/19: Unremarkable. LFTs: Alkaline phosphatase is mildly elevated at 123. SPEP: Showed no M spike, unremarkable SPEP. Vitamin B12: 734. Folate: 6.20. Iron panel: Serum iron was 120, TIBC 340, percent saturation 35, ferritin 88.25. UA: Negative. immunoglobulin panel: IgG 1140, IgA 358, IgM was 315. Rheumatoid factor was unremarkable Anti-proteinase 3: Less than 3.5. Atypical p-ANCA: Less than 1:20. Anti-myeloperoxidase: Less than 9. ANCA: Less than 1:20. PERTINENT IMAGING STUDIES: Chest x-ray on 02/08: Shows cavitary lesion in the right lung apex. Reticulonodular density in the right lung base suspicious for atypical infectious pneumonitis. CTA thorax on 02/08: Shows multiple thick-walled cavitary pulmonary nodules and noncavitary solid pulmonary nodules. No evidence of PE. Chest x-ray on 02/11: Shows numerous irregularly shaped small noncalcified pulmonary nodules in the right mid and lower lung zone suggestive of infectious process by atypical organism. There is a right apical cavitary pulmonary lesion. There is emphysema. Pathology: Pleural fluid is showing some fragments of Celine. There are no malignant cells. DISCHARGE CONDITION: Stable. ACTIVITY: As tolerated. DIET RESTRICTION: Heart healthy diet. DISPOSITION: Home. DISCHARGE MEDICATIONS: New prescriptions include Mucinex 2 tablets p.o. q.12 hours, folic acid 1 mg p.o. daily, lidocaine patch topical, prednisone 20 mg daily for 20 days. All other home medications were resumed, please refer to discharge work sheet. DISCHARGE INSTRUCTIONS: The patient was advised to stay in his home and to not go outside in open space until his AFB cultures are back. He should follow up with his PCP in a week to recheck his folic acid levels and his white blood cell count. He did have some Celine fragments in his pleural fluid, I will discuss with Dr. Omalley about whether he wants this to be treated or not. Job ID: [id number] MTDD
--- NOTE | 2019-02-20 02:31 | PQF ---
DEVORA HEMPHILL, AME [id number] CLINICAL DOCUMENTATION CLARIFICATION FORM: POST DISCHARGE Addendum to original discharge summary date: ____ Late entry note date: __ DATE: 02/20/19 ATTN: Dr Rg Ame Please exercise your independent, professional judgment in responding to the clarification form. Clinical indicators are provided on the bottom of this form for your review In your clinical opinion based on clinical findings below, can you please identify the etiology of Acute on Chronic Respiratory Failure if due to: Please check appropriate box(s): [ ] Hospital Acquired Pneumonia [ ] MAC infection [ ] Cavitary lung lesion [ ] Other condition, please specify: [ ] Unable to determine In addition, please specify: Present on Admission (POA): [ ] Yes [ ] No [ ] Unable to determine For continuity of documentation, please document condition throughout progress notes and discharge summary. Thank You. CLINICAL INDICATORS - SIGNS / SYMPTOMS / LABS H&P p1 02/08 Dr Harris presents on ER for a 2-months history of paroxysmal nocturnal dyspnea that worsened over the past several days associated with cough and wheezing H&P p1 02/08 Dr Harris at bedside the patient continues to feel short of breath with increased work of breathing when speaking H&P p1 02/08 Dr Harris He notes 50-pound unintentional weight loss over the past 6 months H&P p2 02/08 Dr Harris likely secondary to multifactorial etiology including COPD exacerbation, pulmonary nodules concerning for possible malignancy RISK FACTORS H&P p1 02/08 Chronic Nicotine Dependence H&P p3 02/08 - s/p Lung lobectomy Pulmo consult 2 02/11 Healthcare-associated Pneumonia Pulmo consult 2 02/11 Cavity lung disease Hospitalist PN p6 02/18 Acute hypoxic respiratory failure secondary to Pneumonia vs MAC infection, right cavitary lesion with pulmonary nodules TREATMENTS: Respiratory panel 02/08 High flow NC O2 flow rate 50, FiO2 35 Pulmonology consult 02/08 Toni Prasad 02/08 Piper Jarod IV JUN 05 Augmentin 500mg PO (This form is maintained as a part of the permanent medical record) 2014 [employer]. All Rights Reserved [email or web address] [not provided] MTDD
--- NOTE | 2019-02-20 04:07 | PQF ---
DEVORA HEMPHILL, AME [id number] CLINICAL DOCUMENTATION CLARIFICATION FORM: POST DISCHARGE Addendum to original discharge summary date: ____ Late entry note date: __ DATE: 02/20/19 ATTN: Dr Rg Ame Please exercise your independent, professional judgment in responding to the clarification form. Clinical indicators are provided on the bottom of this form for your review Please check appropriate box(es): [ X ] Sepsis due to Mycobacterial infecton [ X ] Sepsis due to Pneumonia [ ] Severe sepsis with acute organ dysfunction of: (Examples: respiratory failure, encephalopathy, acute kidney failure, other) [ ] Septic Shock [ ] Localized infection without sepsis [ ] Other diagnosis [ ] Unable to determine In addition, please specify: Present on Admission (POA): [ X ] Yes [ ] No [ ] Unable to determine For continuity of documentation, please document condition throughout progress notes and discharge summary. Thank You. CLINICAL INDICATORS - SIGNS / SYMPTOMS / LABS ER notes p2 02/08 SIRS Scoring : Pulse 120, Resp 26. Yes pt did meet at least 2 criteria for Step 1, Pneumonia ER notes p2 02/08 A sepsis Alert was activated due to patient meeting the activation requirement H&P p1 02/08 Dr Harris presents on ER for a 2-months history of paroxysmal nocturnal dyspnea that worsened over the past several days associated with cough and wheezing H&P p1 02/08 Dr Harris at bedside the patient continues to feel short of breath with increased work of breathing when speaking H&P p1 02/08 Dr Harris He notes 50-pound unintentional weight loss over the past 6 months H&P p2 02/08 Dr Harris likely secondary to multifactorial etiology including COPD exacerbation, pulmonary nodules concerning for possible malignancy RISK FACTORS H&P p1 02/08 COPD H&P p1 02/08 Chronic Nicotine Dependence H&P p3 02/08 - s/p Lung lobectomy Pulmo consult 2 02/11 Healthcare-associated Pneumonia Pulmo consult 2 02/11 Cavity lung disease Hospitalist PN p6 02/18 Acute hypoxic respiratory failure secondary to Pneumonia vs MAC infection, right cavitary lesion with pulmonary nodules TREATMENTS: Respiratory panel 02/08 High flow NC O2 flow rate 50, FiO2 35 Pulmonology consult 02/08 Toni Prasad 02/08 Piper Jarod IV JUN 05 Augmentin 500mg PO (This form is maintained as a part of the permanent medical record) 2014 [email or web address] All Rights Reserved [email or web address] [not provided] MTDD
== END 2019-02-19 14:25 | disposition home or self-care (01) | DRG 871 ==
LOC: ERS 08:37 → CCU 11:28 → T4-A 02-09 12:28
PROVIDERS: ADMIT Hospitalist; ATTEND Hospitalist
DX: A41.89 Other specified sepsis (principal); J96.21 Acute and chronic respiratory failure with hypoxia; E43 Unspecified severe protein-calorie malnutrition; J18.9 Pneumonia, unspecified organism; A31.0 Pulmonary mycobacterial infection; J44.1 Chronic obstructive pulmonary disease with (acute) exacerbation; Z68.1 Body mass index [BMI] 19.9 or less, adult; R64 Cachexia; F17.200 Nicotine dependence, unspecified, uncomplicated; G89.29 Other chronic pain; M54.9 Dorsalgia, unspecified; Y95 Nosocomial condition; D64.9 Anemia, unspecified; D52.9 Folate deficiency anemia, unspecified; D72.829 Elevated white blood cell count, unspecified; T38.0X5A Adverse effect of glucocorticoids and synthetic analogues, initial encounter; R91.1 Solitary pulmonary nodule; Z28.21 Immunization not carried out because of patient refusal; Z79.899 Other long term (current) drug therapy
CPT/HCPCS: 36415; 71045; 71046; 71275; 80048; 80053; 81003; 82607; 82728; 82746; 82805; 83520; 83540; 83550; 83605; 83880; 84165; 84484; 85025; 85027; 86200; 86256; 87040; 87070; 87086; 87116; 87205; 87206; 87804; 88112; 93005; 94640; 94644; 94660; 94664; 94667; 94668; 96365; 96366; 96367; 96375; 99213; G0463; J1650; J1956; J2543; J2920; J2930; J3370; J3475; J3490; J7512; J7611; J7620; J7626; Q9967; S0028

== ENCOUNTER 2019-02-27 14:33 | Outpatient (CLI) | payer MEDICARE, MEDICAID ==
--- NOTE | 2019-02-27 15:04 | RAD ---
XR Hand Lt 2 View: 02/27/2019 12:00 AM CLINICAL INDICATION: Left hand pain after fall COMPARISON: None. FINDINGS: Bones: There is partial amputation of the left ring and small digit. The left ring finger is indicat ed through the middle phalanx. The left small finger is annotated through the base of the distal phalanx. Joints: There is severe STT and moderate first CMC osteoarthrosis. There is scattered IP osteoarthros is. Soft Tissue: Soft tissues are normal appearing. IMPRESSION: No acute osseous abnormality..
== END 2019-02-27 14:34 | disposition home or self-care (01) ==
LOC: RAD 14:33
PROVIDERS: ATTEND Family Medicine
DX: Z04.3 Encounter for examination and observation following other accident (principal); W19.XXXA Unspecified fall, initial encounter

== ENCOUNTER 2019-03-05 12:57 | Outpatient (CLI) | payer MEDICARE, MEDICAID ==
--- NOTE | 2019-03-05 13:23 | RAD ---
XR Chest Pa Lat @ POB History: Dyspnea Comparison: Radiograph February 11, 2019 Findings: The cavitary lesion within the right upper lobe is similar. Peripheral nodularity in the ri ght middle lobe and right lower lobe is similar. Volume loss right hemithorax relative to the left. There are more solid pulmonary nodules in the lower lobes. Mild bronchial wall thickening. No acute osseous abnormality. Cardiac silhouette and mediastinal contours are similar. Impression: Similar examination of the chest with the cavitary pulmonary nodules in the upper lobes a nd more solid nodules throughout the lower lobes. Findings are concerning for underlying atypical infectious process.
== END 2019-03-05 12:58 | disposition home or self-care (01) ==
LOC: RAD 12:57
PROVIDERS: ATTEND Internal Medicine Pulmonary Disease
DX: R06.00 Dyspnea, unspecified (principal); R91.8 Other nonspecific abnormal finding of lung field
CPT/HCPCS: 71046

== ENCOUNTER 2019-03-23 11:15 | Inpatient (IN) | payer MEDICARE, MEDICAID ==
[2019-03-23] MEDS ORDERED: Promethazine HCl 25 MG/ML VIAL ONE (11:37)
[2019-03-23 12:29] LABS: #Basophils 0.1 thou/uL (0.0-0.2); #Eosinphils 0.4 thou/uL (0.0-0.7); #Neutrophils 13.2 thou/uL (1.40-6.50); %Basophils 0.5 % (0.0-1.0); %Eosinophils 2.5 % (0.0-10.0); %Monocytes 11.2 % (0.0-10.0); %Neutrophils 74.8 % (42.0-75.0); Hemoglobin 11.6 g/dL (14.0-18.0); Mean Corpuscular Hemoglobin 30.7 pg (27.0-31.0); Mean Corpuscular Volume 92.9 fL (78.0-98.0); Mean Platelet Volume 7.6 fL (7.4-10.4); Platelet Count 223 thou/uL (130-400); RBC Distribution Width 13.3 % (11.5-14.5); Red Blood Cell (RBC) Count 3.79 mill/uL (4.70-6.10); White Blood Cell (WBC) Count 17.7 thou/uL (4.8-10.8)
[2019-03-23 12:38] LABS: ALT (SGPT) 243 U/L (8-55); AST (SGOT) 332 U/L (5-34); Albumin 2.6 g/dL (3.4-4.8); Alkaline Phosphatase 95 U/L (40-110); Anion Gap 12 mmol/L (10-20); BUN (Urea Nitrogen) 21 mg/dL (8.4-25.7); Bilirubin, Total 0.9 mg/dL (0.2-1.2); Calc. Creatinine Clearance 0 mL/min (70-130); Calcium 7.4 mg/dL (7.8-10.44); Carbon Dioxide 23 mmol/L (23-31); Chloride 102 mmol/L (98-107); Estimated GFR-MDRD Greater than 90; Globulin 3.3 g/dL (2.4-3.5); Glucose 88 mg/dL (80-115); Lipase 105 U/L (8-78); Magnesium 1.7 mg/dL (1.6-2.6); Protein, Total 5.9 g/dL (5.8-8.1); Sodium 134 mmol/L (136-145)
[2019-03-23 12:43] LABS: Potassium 2.9 mmol/L (3.5-5.1)
--- NOTE | 2019-03-23 12:48 | RAD ---
PORTABLE AP CHEST XRAY: HISTORY: Pneumonia. The patient complains of nausea. COMPARISON: 03/05/2019. FINDINGS: There are increased interstitial and slight patchy densities seen at the right lung base. Interstiti al densities were seen in this region on the prior exam, but the interstitial densities as well as pa tchy density do appear to be mildly increased. These findings may be related to infectious process/p neumonia. Again noted is the parenchymal densities within the upper lung zones bilaterally with a babb ggestion of reticulonodular densities also in the upper lung zones suggesting an infectious or inflam matory process. No pleural effusion is seen. The cardiac silhouette and pulmonary vasculature are within normal limi ts. IMPRESSION: Reticulonodular and nodular densities within the upper lobes as well as parenchymal opacities within each upper lobe greatest in the region of the right lung apex. Cavitary lesion was seen in the right lung apex on the CTA chest on 02/08/2019. Patchy densities seen in the right lung base. The above findings may be related to atypical infectious process. POS: NOAH
[2019-03-23] MEDS ORDERED: Potassium Chloride 20 MEQ TAB ONE (12:53)
[2019-03-23 13:01] LABS: CKMB 0.8 ng/mL (0-6.6)
[2019-03-23] MEDS ORDERED: Pantoprazole 40 MG VIAL ONE (13:41)
[2019-03-23] MEDS ORDERED: Aspirin Chewable 81 MG TAB ONE (13:41)
--- NOTE | 2019-03-23 15:49 | ULT ---
EXAM: US Gallbladder RUQ CLINICAL HISTORY: Cholecystitis. COMPARISON: 07/12/2010 FINDINGS: Pancreas: The head and proximal pancreatic body have a normal echotexture. The remainder the pancrea s is obscured by bowel gas. Liver:Normal hepatic parenchymal echotexture. No hepatic masses or intrahepatic biliary dilatation. T he contour of the hepatic margins maintained. Right hepatic lobe measures 17.4 cm. Gallbladder: Gallbladder is contracted, possibly due to nonfasting state. Gallbladder wall thickness is 0.3 cm, upper limits of normal. No evidence of pericholecystic fluid. No sonographic evidence of cholelithiasis. Lilly's sign:Not commented upon Portal Vein: Patent. Appropriate directional flow Bile ducts: Common bile diameter 0.25 cm Right kidney: No hydronephrosis. Right kidney measures 4.8 x 11.0 x 5.4 cm in length. IMPRESSION: 1. Contracted gallbladder, likely due to nonfasting state. No definite sonographic evidence of cholel ithiasis or cholecystitis. HIDA scan if clinically warranted.
[2019-03-23 16:07] LABS: Bilirubin Negative (Negative); Blood, Urine Negative (Negative); Clarity Turbid (Clear); Glucose, Urine (Dipstick) Normal (Negative); Leukocyte Negative Leu/uL (Negative); Nitrite Negative (Negative); Protein, Urine (Dipstick) 20 mg/dL (Neg-Trace)
--- NOTE | 2019-03-23 16:37 | CON ---
DATE OF CONSULTATION: 03/23/2019 CONSULTING PHYSICIAN: Hospitalist . This encompassed 50 minutes of time, of that time, greater than 50% was spent in performing direct patient care. HISTORY OF PRESENT ILLNESS: This is a 64-year-old male, who presents to the hospital with a 4-day history of nausea and vomiting. He cannot keep his food down. This patient was diagnosed with tuberculosis about a month ago and has been on 4 [facility]. 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 He has been taking his medicines even though he has been sick. PAST MEDICAL HISTORY: 1. Tuberculosis. 2. COPD. 3. Asthma. 4. Chronic hepatitis C. 5. Chronic back pain. PAST SURGICAL HISTORY: 1. Back surgery x2. 2. Sleeve resection of the right upper lobe for lung cancer. SOCIAL HISTORY: He says he quit smoking some time ago. He does not consume alcohol. He does not use illicit drugs. FAMILY MEDICAL HISTORY: Unremarkable. ALLERGIES: NONE. MEDICATIONS: Besides the 4 drug therapy, I do not have current list of his medications. PHYSICAL EXAMINATION: VITAL SIGNS: Temperature 99.2, pulse 106, blood pressure 95/65, and O2 saturation 97%. GENERAL: He is awake, alert, and in no apparent distress. HEENT: Unremarkable. NECK: No adenopathy or JVD. LUNGS: Mild wheezing. CARDIOVASCULAR: S1 and S2. Regular. ABDOMEN: Soft and nontender to palpation. No hepatosplenomegaly. EXTREMITIES: No edema. There is no obvious jaundice. LABORATORY DATA: Sodium 134, potassium 2.9, chloride 102, CO2 of 23, BUN 21, creatinine 0.7, and glucose 88. His total bilirubin 0.9, AST 332, ALT 243, and albumin 2.6. White blood cell count 17.7, hematocrit 35.2, and platelet count 223. IMAGING DATA: Chest x-ray shows chronic upper lobe changes. ASSESSMENT: This patient likely has INH-induced hepatitis from his antitubercular medications. This is on top of chronic hepatitis C. RECOMMENDATIONS: I would withhold antitubercular therapy and monitor his LFTs. Once his LFTs have decreased into the normal range, then his anti-TB medications can be restarted. No further recommendations at this time. Job ID: [id number]
--- NOTE | 2019-03-23 18:25 | HP ---
HISTORY OF PRESENT ILLNESS: Mr. Wood is a 64-year-old man. He come to the ER today with complaint of fever, chills, diarrhea, vomiting, and epigastric pain, and he claims that his symptoms started about 1-1/2 week ago. He was evaluated and felt to be dehydrated. He has been admitted for management. He is known to have a history of COPD and also he has been treated for pulmonary tuberculosis. He was in this facility in January of this year and we could not confirm his tubercular status. He is also known to have a history of hypertension, dyslipidemia, and hepatitis B. PAST SURGICAL HISTORY: Remarkable for right lung lobectomy, back surgery venoplasty, and he has amputated over the left fourth and fifth fingers. We have also to mention that he had a previous right lung lobectomy. ALLERGIES: HE DOES NOT HAVE ANY KNOWN ALLERGY. SOCIAL HISTORY: He has a past history of cigarette smoking. He denies a history of EtOH abuse. He denies substance abuse. FAMILY HISTORY: Reviewed and he is not contributory. MEDICATIONS: His home medications were reviewed. REVIEW OF SYSTEMS: CONSTITUTIONAL: He admits to generalized weakness and he has fever on and off as mentioned earlier. HEENT: No headache. No ocular pain. No sore throat. No rhinorrhea. No earache. No epistaxis. NECK: No neck pain. No neck stiffness. CARDIOVASCULAR: Admits to some shortness of breath mainly exertional. No chest pain. PULMONARY: Admit to productive cough. GASTROINTESTINAL: Admits to nausea, vomiting, and diarrhea. GENITOURINARY: No dysuria. No hematuria. ENDOCRINOLOGY: No heat or cold intolerance. No polyuria, polydipsia, or polyphagia. MUSCULOSKELETAL: No arthralgia. HEMATOLOGY: No abnormal bleeding. No ecchymosis. LYMPHATICS: No palpable lymphadenopathy. No painful lymphadenopathy. SKIN: No rash. No itching. ALLERGY: No hay fever. NEUROLOGY: No seizure. PSYCHIATRIC: Some depression. PHYSICAL EXAMINATION: GENERAL: At the current time, he is alert, oriented, sick looking, in no acute distress. VITAL SIGNS: His latest vital signs show a temperature of 99.2, pulse rate 82, respiratory rate 20, and blood pressure 115/76. HEENT: His head is normocephalic and atraumatic. Both his pupils are equal and reactive. Ears and nose normal. Oral mucosa is moist. Pharyngeal area is clear. NECK: Supple. There is no distention of the jugular vein. No lymphadenopathy felt. Thyroid gland not palpable. There is no carotid bruit. CHEST: Symmetrical with regular S1 and S2. LUNGS: Show a few rhonchi. ABDOMEN: Soft. Bowel sounds heard. We could not appreciate any organomegaly. LIMBS: Show no edema. NEUROLOGIC: He moves all extremities. LAB DATA: CBC showed WBC of 17.7, hemoglobin 11.6, hematocrit of 35.2, MCV of 92.9, and platelet of 223. 134, potassium of 2.9, chloride 102, CO2 of 23, BUN 21, creatinine 0.7, lactic acid 1.6, calcium 7.4, magnesium 1.7, total bilirubin 0.9, AST 332, ALT 243, and alkaline phosphate 95. Troponin was noticed to be elevated at 0.03. BNP 51.6. Total protein 5.9, albumin 2.6, globulin 3.3, and lipase is 105. Chest x-ray was reported to show right apical nodular and nodular density in the upper lobe as well as parenchymal opacity within each upper lobe, greatest in the region of the right lung apex. Cavitary lesion was seen on CT of the chest dated 02/08/2019 according to the report, and there are patchy densities in the right lung base. ASSESSMENT AND PLAN: This is a 64-year-old man with history of chronic obstructive pulmonary disease, possible TB, hypertension, hepatitis B, and dyslipidemia, who is being admitted with fever, chills, nausea, and vomiting, found to be dehydrated as we mentioned earlier . We could not find out any anti-TB medication. His consumer safety inspector will be consulted. He was noticed to be dehydrated. He will be started on normal saline and potassium will be supplemented. Magnesium level was noticed to be normal. The patient was also noticed to have an elevated troponin. We will recheck a troponin level and depending on the trend, we will consider Cardiology evaluation. Further evaluation and management will depend on the course of his hospitalization his response to therapy. Job ID: [id number]
[2019-03-23] MEDS ORDERED: BUPRENORPHINE HCL SL PRN (21:28)
[2019-03-23] MEDS ORDERED: Sodium Chloride 0.9% 1,000 ML IV SCH (21:31)
[2019-03-23 21:36] VITALS: BMI 16.7
[2019-03-23] MEDS ORDERED: Amitriptyline HCl 25 MG TAB PO SCH (21:45)
[2019-03-23] MEDS ORDERED: Cefepime 1 GM in Sodium Chloride 0.9% 100 ML IVPB SCH (22:00)
[2019-03-23] MEDS ORDERED: Mometasone/Formoterol 120 PUFF INHALER INH SCH (22:00)
[2019-03-23] MEDS ORDERED: guaiFENesin/DM ER PO SCH (22:00)
[2019-03-23] MEDS ORDERED: Vancomycin HCl 1.25 GM in Sodium Chloride 0.9% 250 ML 250 ML IVPB SCH (22:00)
[2019-03-23] MEDS ORDERED: Lidocaine 5% Patch TD SCH (22:00)
[2019-03-23] MEDS ORDERED: Cyclobenzaprine 10 MG TAB PO SCH (22:30)
[2019-03-23 22:43] LABS: Troponin I 0.036 ng/mL (< 0.028)
[2019-03-23] MEDS: NS 0.9% w/ 20 MEQ KCL 1,000 ML IV SCH (22:45)
[2019-03-23] MEDS: Rifampin 300 MG CAP PO SCH (22:49)
[2019-03-24] MEDS ORDERED: Morphine 4 MG/ML VIAL SLOW IVP PRN (03:32)
[2019-03-24] MEDS: NS 0.9% w/ 20 MEQ KCL 1,000 ML IV SCH ×2 (05:46→09:32)
[2019-03-24] MEDS: Mometasone/Formoterol 120 PUFF INHALER INH SCH ×2 (07:07→18:55)
[2019-03-24] MEDS ORDERED: Ethambutol HCl 400 MG TAB PO SCH (09:00)
[2019-03-24] MEDS ORDERED: Pyrazinamide 500 MG TAB PO SCH (09:00)
[2019-03-24] MEDS ORDERED: Cefepime 1 GM in Sodium Chloride 0.9% 100 ML IVPB SCH (09:00)
[2019-03-24] MEDS ORDERED: FLU VACC TS2019-20(65YR UP)/PF 180 MCG/0.5 ML SYRINGE IM ONE (09:00)
[2019-03-24] MEDS ORDERED: Famotidine/PF 20 mg/2ml Vial SLOW IVP SCH (09:00)
[2019-03-24] MEDS ORDERED: Isoniazid 100 MG TAB PO SCH (09:00)
[2019-03-24] MEDS: Cyclobenzaprine 10 MG TAB PO SCH ×3 (09:35→21:42)
[2019-03-24] MEDS: Rifampin 300 MG CAP PO SCH (09:36)
[2019-03-24] MEDS: Montelukast Sodium 10 mg Tablet PO SCH (09:37)
[2019-03-24] MEDS: Atorvastatin Calcium 40 MG TAB PO SCH (09:37)
[2019-03-24] MEDS: guaiFENesin/DM ER PO SCH ×2 (09:38→21:41)
[2019-03-24] MEDS: Folic Acid 1 MG TAB PO SCH (09:38)
[2019-03-24] MEDS: predniSONE 20 MG TAB PO SCH (09:38)
[2019-03-24] MEDS ORDERED: Vancomycin HCl 750 MG in Sodium Chloride 0.9% 250 ML 250 ML IVPB SCH (10:00)
[2019-03-24 10:17] LABS: Hemoglobin 10.5 g/dL (14.0-18.0); Mean Corpuscular Hemoglobin 31.4 pg (27.0-31.0); Mean Corpuscular Volume 92.2 fL (78.0-98.0); Mean Platelet Volume 7.8 fL (7.4-10.4); Platelet Count 193 thou/uL (130-400); RBC Distribution Width 13.2 % (11.5-14.5); Red Blood Cell (RBC) Count 3.34 mill/uL (4.70-6.10); White Blood Cell (WBC) Count 12.6 thou/uL (4.8-10.8)
[2019-03-24 10:40] LABS: Anion Gap 12 mmol/L (10-20); BUN (Urea Nitrogen) 12 mg/dL (8.4-25.7); Calc. Creatinine Clearance 87 mL/min (70-130); Carbon Dioxide 18 mmol/L (23-31); Chloride 112 mmol/L (98-107); Estimated GFR-MDRD Greater than 90; Glucose 151 mg/dL (80-115); Magnesium 1.6 mg/dL (1.6-2.6); Potassium 3.3 mmol/L (3.5-5.1); Sodium 139 mmol/L (136-145)
[2019-03-24 10:47] LABS: HIV (1/2) Antibody/Antigen Non-Reactive (NonReactive); HIV 1/2 INDEX 0.08 S/CO (<1.00)
[2019-03-24 11:06] LABS: Band 2 % (5-11); Eosinophils 9 % (0-10); Lymphocytes 18 % (21-51); MDiff Complete? YES; Monocytes 12 % (0-10); Neutrophil 59 % (42-75); Platelet Morphology Comment Appears Adequate
--- NOTE | 2019-03-24 12:43 | PRG ---
DATE OF SERVICE: 03/24/2019 SUBJECTIVE: The patient reports that he feels better. He is less nauseated and is no longer having diarrhea. OBJECTIVE: VITAL SIGNS: His temperature 98.5 pulse 108, respirations 18, O2 saturation 95% on room air, blood pressure 100/68. HEENT: Unremarkable. NECK: No adenopathy or JVD. CHEST: Fairly clear anteriorly. CARDIAC: S1, S2. Regular. ABDOMEN: Soft. EXTREMITIES: No edema. LABORATORY DATA: Sodium 139, potassium 3.3, chloride 112, CO2 18, anion gap of 7, BUN 12, creatinine 0.6, glucose 151. LFTs were not repeated today. ASSESSMENT: 1. Suspected INH-induced hepatitis with grossly elevated transaminases, but no elevation in total bilirubin. 2. Chronic hepatitis C. 3. Tuberculosis - now about 1 month into 4 drug therapy. I do not see sensitivities back on his tuberculosis specimens from 02/09/2019. PLAN: Withhold TB therapy until his transaminases are down to less than 2 times normal. Job ID: [id number]
--- NOTE | 2019-03-24 13:27 | PDOC.HOSPP ---
- Subjective Encounter Date: 03/24/19 (f/u subj fevers) Encounter Time: 13:25 Subjective: Pt is c/o left hand/wrist and knee pain that he reports started after a fall about a month ago. He also c/o rash on his torso that is new over the past week or so. Denies cp/n/v/abd pain/diarrhea - Objective Vital Signs & Weight: Vital Signs (12 hours) Temp Pulse Resp BP BP BP Pulse Ox 03/24/19 11:38 98.5 F 108 H 18 100/68 03/24/19 09:35 103/67 03/24/19 08:00 98.0 F 112 H 20 103/67 95 03/24/19 07:44 95 03/24/19 07:07 107 H 17 03/24/19 06:50 107 H 17 03/24/19 03:53 98.9 F 120 H 20 102/70 96 Weight Weight 115 lb 4.828 oz I&O: 03/23/19 03/24/19 03/25/19 06:59 06:59 06:59 Intake Total 1705 Balance 1705 Result Diagrams: 03/24/19 09:29 03/24/19 09:29 EKG Reviewed by me: Yes (tele - sinus 100-150's with PAT for about 10 sec) Hospitalist ROS - Medication Medications: Active Medications Generic Name Dose Route Start Last Admin Trade Name Freq PRN Reason Stop Dose Admin Albuterol/Ipratropium 3 ml 03/24/19 07:00 03/24/19 11:26 Duoneb NEB Not Given QID-RT VALENCIA Atorvastatin Calcium 80 mg 03/24/19 09:00 03/24/19 09:37 Lipitor PO 80 mg DAILY VALENCIA Administration Cyclobenzaprine HCl 5 mg 03/24/19 09:00 03/24/19 09:35 Flexeril PO 5 mg TID VALENCIA Administration Famotidine 20 mg 03/24/19 09:00 03/24/19 09:38 Pepcid SLOW IVP 20 mg DAILY VALENCIA Administration Folic Acid 1 mg 03/24/19 09:00 03/24/19 09:38 Folvite PO 1 mg DAILY VALENCIA Administration Guaifenesin/Dextromethorphan 2 tab 03/24/19 09:00 03/24/19 09:38 Mucinex Dm PO 2 tab Q12HR VALENCIA Administration Cefepime HCl 1 gm/ Sodium 100 mls @ 200 mls/hr 03/24/19 09:00 03/24/19 09:34 Chloride IVPB 100 mls Q12HR VALENCIA Administration Vancomycin HCl 750 mg/ Sodium 250 mls @ 250 mls/hr 03/24/19 10:00 03/24/19 11 :28 Chloride IVPB 250 mls 1000,2200 VALENCIA Administration Potassium Chloride/Sodium Chloride 1,000 mls @ 125 mls/hr 03/23/19 21:28 09:32 Ns 0.9% W/ 20 Meq Kcl IV 1,000 mls .Q8H VALENCIA Administration Mometasone Furoate/Formoterol Fumar 1 puff 03/24/19 06:30 03/24/19 07:07 Dulera 200 Mcg/5 Mcg Inhaler INH 1 puff BID-RT VALENCIA Administration Montelukast Sodium 10 mg 03/24/19 09:00 03/24/19 09:37 Singulair PO 10 mg DAILY VALENCIA Administration Prednisone 20 mg 03/24/19 09:00 03/24/19 09:38 Prednisone PO 20 mg DAILY VALENCIA Administration Ramipril 2.5 mg 03/24/19 09:00 03/24/19 09:35 Altace PO 2.5 mg DAILY VALENCIA Administration Sodium Chloride 10 ml 03/24/19 09:00 03/24/19 09:39 Flush - Normal Saline IVF 10 ml Q12HR VALENCIA Administration - Exam General Appearance: NAD Heart: RRR, no murmur Respiratory - other findings: fair air movement, no audible w/r/r Gastrointestinal: soft, non-tender, non-distended, normal bowel sounds Extremities: no cyanosis, no clubbing, no edema Extremities - other findings: pain along left wrist/hand and knee without palp abnormality Skin - other findings: erythematous macules along back/chest, scaling/ erythematous patches on arms Psychiatric: normal affect Hosp A/P (1) Nausea and vomiting Code(s): R11.2 - NAUSEA WITH VOMITING, UNSPECIFIED Status: Resolved (2) Fever Code(s): R50.9 - FEVER, UNSPECIFIED Status: Resolved (3) Tuberculosis Code(s): A15.9 - RESPIRATORY TUBERCULOSIS UNSPECIFIED Status: Acute (4) Cavitary lesion of lung Code(s): J98.4 - OTHER DISORDERS OF LUNG Status: Acute (5) Hand pain, left Code(s): M79.642 - PAIN IN LEFT HAND Status: Acute (6) Knee pain, left Code(s): M25.562 - PAIN IN LEFT KNEE Status: Acute Qualifiers: Chronicity: unspecified Qualified Code(s): M25.562 - Pain in left knee (7) COPD (chronic obstructive pulmonary disease) Status: Acute (8) Hypokalemia Code(s): E87.6 - HYPOKALEMIA Status: Acute (9) Elevated liver enzymes Code(s): R74.8 - ABNORMAL LEVELS OF OTHER SERUM ENZYMES Status: Acute - Plan Pulm TB with elevated lft's - - appreciate Pulm consult - d/c 4 drug TB therapy until lft's are normal - no indication to continue abx - will d/c Elevated lft's - monitor off TB meds Hypokalemia - replace Subj f/c with n/v - resolved - will d/c abx and monitor cx hand/wrist/knee pain - xrays to eval for interval change - pt/ot rash - may be secondary to TB meds - monitor dvt prophy - scd's and ambulatory gi prophy - not indicated code status full reviewed plan of care with patient, no questions or further needs at end of eval
[2019-03-24] MEDS ORDERED: Potassium Chloride 20 MEQ TAB PO SCH (13:45)
[2019-03-24 16:50] LABS: ALT (SGPT) 228 U/L (8-55); AST (SGOT) 151 U/L (5-34); Albumin 2.4 g/dL (3.4-4.8); Alkaline Phosphatase 91 U/L (40-110); Bilirubin, Direct 0.9 mg/dL (0.1-0.3); Bilirubin, Total 1.1 mg/dL (0.2-1.2); Protein, Total 5.5 g/dL (5.8-8.1)
--- NOTE | 2019-03-24 17:07 | RAD ---
LEFT HAND THREE VIEWS: 03/24/19 COMPARISON: None. HISTORY: Fall one month ago. 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 There is degenerative woodard ge involving the second and third proximal and distal interphalangeal joints. There is also degenerat jeferson change involving the distal carpal row laterally as well as the first metacarpophalangeal joint a nd the first carpometacarpal joint. No displaced fracture or evidence of dislocation is seen. IMPRESSION: Degenerative and postsurgical changes as described above. No displaced fracture or evidence of disloc ation. POS: [facility]
--- NOTE | 2019-03-24 17:08 | RAD ---
LEFT KNEE TWO VIEWS: 03/24/19 COMPARISON: None. HISTORY: Fall, pain. FINDINGS: There is moderate medial compartment narrowing and mild lateral compartment narrowing. No knee joint effusion, displaced fracture or evidence of dislocation. IMPRESSION: No acute osseous abnormality. POS: [facility]
--- NOTE | 2019-03-24 17:09 | RAD ---
VIEWS OF THE LEFT WRIST: 03/24/19 COMPARISON: None. HISTORY: Fall, trauma, pain. FINDINGS: There is radiocarpal joint space narrowing. No widening of the scapholunate interval. No displaced fr acture or evidence of dislocation is seen. IMPRESSION: No displaced fracture or dislocation. POS: [facility]
--- NOTE | 2019-03-24 19:14 | CON ---
DATE OF CONSULTATION: 03/24/2019 REASON FOR CONSULTATION: Hepatotoxicity following initiation of treatment for pulmonary tuberculosis. HISTORY OF PRESENT ILLNESS: A 64-year-old who has a history of chronic hepatitis C, not yet treated; COPD, coronary artery disease, and episodes of bronchitis, who was admitted at the end of January this year with respiratory insufficiency and a right cavitary lesion with pulmonary nodules. The patient was discharged and in the outpatient setting, the cultures returned positive for mycobacterium tuberculosis in all 3 samples. The patient was started on the usual regimen and now has developed hepatotoxicity. He was admitted to [facility]. He is on airborne precautions. Currently, Mr. Wood denies any headaches. No visual symptoms, sore throat, odynophagia, or dysphagia. No more vomiting. No chest pain. No cough. No sputum production or abdominal pain. No genitourinary symptoms. PAST MEDICAL HISTORY: Chronic hep C, untreated; COPD, bronchitis; recently diagnosed Mycobacterium tuberculosis lung infection, coronary artery disease. PAST SURGICAL HISTORY: History of lung surgery with 2/3 of lung removal on the right side, unclear for it. SOCIAL HISTORY: Chronic smoking. Still actively smoking. No alcoholic beverage use. ALLERGIES: NONE. MEDICATIONS: Had been on: 1. INH. 2. Pyrazinamide. 3. Rifampin. 5. Prednisone. 6. Pantoprazole. 7. Symbicort. 8. Atorvastatin. 9. Aspirin. 10. Tessalon. FAMILY HISTORY: Noncontributory. [facility]. He is currently on the above medicines. The antituberculous medications have been discontinued. PHYSICAL EXAMINATION: VITAL SIGNS: Temperature has been normal, blood pressure 100/68, pulse 108, respirations 18, O2 saturation 95. SKIN: Peripheral IV access. He is voiding in the toilet. No lymphadenopathy. Some element of wasting syndrome. HEENT: Ocular movements conjugate. Sclerae white. Pupils are 2 mm and reactive. No [place] teeth remaining. Oral mucosa is normal. NECK: Supple. No jugular vein distention. LUNGS: Symmetric air entry. Diminished breath sounds at the right base. No wheezing or crackles. HEART: S1 and S2. Regular rate. No S3 or S4. ABDOMEN: Soft, not distended or tender. No ascites. No organomegaly. No bladder distention. EXTREMITIES: No joint inflammatory activity. No edema. Pulses 1+ in dorsalis pedis. NEUROLOGICAL: Plantar responses are flexor. Cognitive function appears to be intact. LABORATORY STUDIES: Sodium 134, potassium 2.9, creatinine 0.7. AST 332, ALT 249, alkaline phosphatase 95, bilirubin 0.9. The previous values were within normal limits on 02/19. Albumin 2.6. Urinalysis with 2.0 urobilinogen. HIV nonreactive. The mycobacterium tuberculosis complex identified in the sputum was weiss susceptible to all the five drugs tested. There is an abdomen ultrasound completed on 03/23 , with contracted gallbladder, but no other abnormalities noted. There is a chest x-ray from 03/23, with reticulonodular nodular densities in the upper lobes and parenchymal opacities in each upper lobe and cavitary lesion seen as well. There are patchy densities in the right lung base as well. ASSESSMENT: 1. Chronic obstructive pulmonary disease, pulmonary tuberculosis with weiss susceptible strain 2. Chronic hepatitis C, untreated. 3. Presumed TB treatment-associated hepatotoxicity DISCUSSION: Following ATS recommendations, all the drugs have been discontinued. Once the transaminases return to less than 2 times the upper limit of normal, then would reintroduce rifampin and ethambutol and monitor for at least 3 days and then consider reintroducing INH. If he tolerates those 3 drugs, then would use those 3 to treat him for 9 months at least. I would not reintroduce pyrazinamide. If he does not tolerate reintroduction of INH, then would have to add quinolone instead of INH. The presence of hepatitis C increases the risk of hepatotoxicity from treatment for tuberculosis. He will have to remain on airborne precautions until discharge. Job ID: [id number] [facility]
[2019-03-24] MEDS: Lidocaine 5% Patch TD SCH (21:41)
[2019-03-24] MEDS: Amitriptyline HCl 25 MG TAB PO SCH (21:42)
[2019-03-25 05:01] LABS: #Basophils 0.1 thou/uL (0.0-0.2); #Eosinphils 0.8 thou/uL (0.0-0.7); #Lymphocytes 2.2 thou/uL (1.20-3.40); #Monocytes 1.6 thou/uL (0.11-0.59); #Neutrophils 10.9 thou/uL (1.40-6.50); %Basophils 0.5 % (0.0-1.0); %Eosinophils 5.2 % (0.0-10.0); %Lymphocytes 14.1 % (21.0-51.0); %Monocytes 9.9 % (0.0-10.0); %Neutrophils 70.3 % (42.0-75.0); Hemoglobin 9.6 g/dL (14.0-18.0); Mean Corpuscular HGB CONC 33.1 g/dL (32.0-36.0); Mean Corpuscular Hemoglobin 30.8 pg (27.0-31.0); Mean Platelet Volume 7.4 fL (7.4-10.4); Platelet Count 237 thou/uL (130-400); RBC Distribution Width 13.3 % (11.5-14.5); White Blood Cell (WBC) Count 15.6 thou/uL (4.8-10.8)
[2019-03-25 05:24] LABS: ALT (SGPT) 211 U/L (8-55); AST (SGOT) 96 U/L (5-34); Albumin 2.5 g/dL (3.4-4.8); Alkaline Phosphatase 92 U/L (40-110); Anion Gap 13 mmol/L (10-20); BUN (Urea Nitrogen) 9 mg/dL (8.4-25.7); Bilirubin, Total 0.7 mg/dL (0.2-1.2); Calc. Creatinine Clearance 85 mL/min (70-130); Calcium 7.4 mg/dL (7.8-10.44); Carbon Dioxide 18 mmol/L (23-31); Chloride 110 mmol/L (98-107); Estimated GFR-MDRD Greater than 90; Globulin 3.2 g/dL (2.4-3.5); Glucose 91 mg/dL (80-115); Potassium 3.7 mmol/L (3.5-5.1); Protein, Total 5.7 g/dL (5.8-8.1); Sodium 137 mmol/L (136-145)
[2019-03-25] MEDS: Mometasone/Formoterol 120 PUFF INHALER INH SCH ×2 (06:44→18:35)
[2019-03-25] MEDS: Cyclobenzaprine 10 MG TAB PO SCH ×3 (09:25→20:03)
[2019-03-25] MEDS: predniSONE 20 MG TAB PO SCH (09:26)
[2019-03-25] MEDS: Atorvastatin Calcium 40 MG TAB PO SCH (09:26)
[2019-03-25] MEDS: Folic Acid 1 MG TAB PO SCH (09:27)
[2019-03-25] MEDS: guaiFENesin/DM ER PO SCH ×2 (09:27→20:04)
[2019-03-25] MEDS: Montelukast Sodium 10 mg Tablet PO SCH (09:27)
[2019-03-25] MEDS: Lidocaine Patch Removal TOP SCH (09:28)
--- NOTE | 2019-03-25 11:22 | PDOC.HOSPP ---
- Subjective Encounter Date: 03/25/19 (f/u fever) Encounter Time: 11:21 Subjective: Pt c/o headache now - reports some abd pain earlier with coughing that has since resolved. Denies any cp/sob/n/v, states the rash is getting better. - Objective Vital Signs & Weight: Vital Signs (12 hours) Temp Pulse Resp BP Pulse Ox 03/25/19 10:53 105 H 16 03/25/19 07:47 97 03/25/19 07:46 98.7 F 105 H 17 105/65 97 03/25/19 06:44 115 H 16 03/25/19 06:43 115 H 16 03/25/19 04:00 98.9 F 03/25/19 03:18 101.5 F H 115 H 20 121/78 97 Weight Admit Weight 115 lb 4.828 oz Weight 115 lb 4.828 oz I&O: 03/24/19 03/25/19 03/26/19 06:59 06:59 06:59 Intake Total 1705 2265 Output Total 500 Balance 1705 1765 Result Diagrams: 03/25/19 04:26 03/25/19 04:26 Radiology Reviewed by me: Yes (xrays of left hand/wrist/knee are neg for fx) EKG Reviewed by me: Yes (tele - sinus 100's) Hospitalist ROS - Medication Medications: Active Medications Generic Name Dose Route Start Last Admin Trade Name Freq PRN Reason Stop Dose Admin Albuterol/Ipratropium 3 ml 03/24/19 07:00 03/25/19 10:53 Duoneb NEB 3 ml QID-RT VALENCIA Administration Amitriptyline HCl 25 mg 03/24/19 21:00 03/24/19 21:42 Elavil PO 25 mg HS VALENCIA Administration Atorvastatin Calcium 80 mg 03/24/19 09:00 03/25/19 09:26 Lipitor PO 80 mg DAILY VALENCIA Administration Cyclobenzaprine HCl 5 mg 03/24/19 09:00 03/25/19 09:25 Flexeril PO 5 mg TID VALENCIA Administration Folic Acid 1 mg 03/24/19 09:00 03/25/19 09:27 Folvite PO 1 mg DAILY VALENCIA Administration Guaifenesin/Dextromethorphan 2 tab 03/24/19 09:00 03/25/19 09:27 Mucinex Dm PO 2 tab Q12HR VALENCIA Administration Lidocaine 1 patch 03/24/19 21:00 03/24/19 21:41 Lidoderm 5% Patch TD 1 patch 2100 VALENCIA Administration Miscellaneous Medication 1 each 03/25/19 09:00 03/25/19 09:28 Lidocaine Patch Removal TOP 1 each 0900 VALENCIA Administration Mometasone Furoate/Formoterol Fumar 1 puff 03/24/19 06:30 03/25/19 06:44 Dulera 200 Mcg/5 Mcg Inhaler INH 1 puff BID-RT VALENCIA Administration Montelukast Sodium 10 mg 03/24/19 09:00 03/25/19 09:27 Singulair PO 10 mg DAILY VALENCIA Administration Prednisone 20 mg 03/24/19 09:00 03/25/19 09:26 Prednisone PO 20 mg DAILY VALENCIA Administration Ramipril 2.5 mg 03/24/19 09:00 03/25/19 09:26 Altace PO 2.5 mg DAILY VALENCIA Administration Sodium Chloride 10 ml 03/24/19 09:00 03/25/19 09:27 Flush - Normal Saline IVF 10 ml Q12HR VALENCIA Administration - Exam General Appearance: NAD Heart: RRR, no murmur Respiratory - other findings: distant lung sounds - no audible w/r/r Gastrointestinal: soft, non-tender, non-distended, normal bowel sounds Extremities: no cyanosis, no clubbing, no edema Skin - other findings: unchanged - (mild) erythematous macules, scaling erythematous plaques arms Psychiatric: normal affect Hosp A/P (1) Nausea and vomiting Code(s): R11.2 - NAUSEA WITH VOMITING, UNSPECIFIED Status: Resolved (2) Fever Code(s): R50.9 - FEVER, UNSPECIFIED Status: Acute Qualifiers: Encounter type: subsequent encounter (3) Tuberculosis Code(s): A15.9 - RESPIRATORY TUBERCULOSIS UNSPECIFIED Status: Acute (4) Cavitary lesion of lung Code(s): J98.4 - OTHER DISORDERS OF LUNG Status: Acute (5) Hand pain, left Code(s): M79.642 - PAIN IN LEFT HAND Status: Acute (6) Knee pain, left Code(s): M25.562 - PAIN IN LEFT KNEE Status: Acute Qualifiers: Chronicity: unspecified Qualified Code(s): M25.562 - Pain in left knee (7) COPD (chronic obstructive pulmonary disease) Status: Acute (8) Hypokalemia Code(s): E87.6 - HYPOKALEMIA Status: Resolved (9) Elevated liver enzymes Code(s): R74.8 - ABNORMAL LEVELS OF OTHER SERUM ENZYMES Status: Acute - Plan Pulm TB with elevated lft's - - appreciate Pulm consult - d/c TB therapy until lft's are normal - appreciate ID consult - instructions on when/how to resume meds in Dr. Tai note Elevated lft's - improved Hypokalemia - resolved Tylenol prn for pain - ordered low dose - less than 2 grams per day to avoid any associated liver injury. Avoiding nsaids for this patient and narcotics at this time. Fever overnight - cx reviewed and negative - monitor for another 24 hours to see if fever returns. Abx d/c yesterday hand/wrist/knee pain - xrays negative - continue pt/ot rash - may be secondary to TB meds - unchanged dvt prophy - scd's and ambulatory gi prophy - not indicated code status full reviewed plan of care with patient, no questions or further needs at end of eval anticipate another 24 hours to monitor fever curve off abx and follow cx. Will need f/u with Dr. Tai and monitoring of lft's to determine when to resume TB meds.
[2019-03-25] MEDS ORDERED: Acetaminophen 325 MG TAB PO PRN (11:25)
--- NOTE | 2019-03-25 13:38 | PRG ---
DATE OF SERVICE: 03/25/2019 SUBJECTIVE: The patient says he feels better. He is no longer having nausea or vomiting. He has had no diarrhea. OBJECTIVE: VITAL SIGNS: Temperature 98.1, pulse 106, respirations 26, O2 saturation 96%, and blood pressure 101/62. HEAD AND NECK: Unremarkable. LUNGS: Clear. CARDIAC: S1 and S2. Regular. ABDOMEN: Soft. EXTREMITIES: He has some sloughing of the skin over his dorsum of his feet. LABORATORY DATA: White blood cell count 15.6, hematocrit 28.9, and platelet count 237. Sodium 137, potassium 3.7, BUN 9, creatinine 0.6. AST 96 and ALT 211. ASSESSMENT: Likely INH-induced hepatitis. PLAN: TB beds are being held-see my previous note. Hopefully, his LFTs will be better in a day or two or medications can be restarted. See Dr. Tai' note for recommendations in that regard. No further recommendations at this time. Job ID: [id number]
[2019-03-25] MEDS: Amitriptyline HCl 25 MG TAB PO SCH (20:04)
[2019-03-25] MEDS: Lidocaine 5% Patch TD SCH (20:04)
[2019-03-26 05:25] LABS: Band 2 % (5-11); Eosinophils 1 % (0-10); Hemoglobin 9.9 g/dL (14.0-18.0); Lymphocytes 22 % (21-51); MDiff Complete? YES; Mean Corpuscular HGB CONC 33.5 g/dL (32.0-36.0); Mean Corpuscular Hemoglobin 31.3 pg (27.0-31.0); Mean Corpuscular Volume 93.4 fL (78.0-98.0); Mean Platelet Volume 7.2 fL (7.4-10.4); Metamyelocyte 5 % (0-0); Monocytes 14 % (0-10); Myelocyte 2 % (0-0); Neutrophil 54 % (42-75); Platelet Count 254 thou/uL (130-400); Platelet Morphology Comment Appears Adequate; RBC Distribution Width 13.4 % (11.5-14.5); Red Blood Cell (RBC) Count 3.15 mill/uL (4.70-6.10); White Blood Cell (WBC) Count 11.9 thou/uL (4.8-10.8)
[2019-03-26 05:30] LABS: ALT (SGPT) 166 U/L (8-55); AST (SGOT) 54 U/L (5-34); Albumin 2.4 g/dL (3.4-4.8); Alkaline Phosphatase 109 U/L (40-110); Anion Gap 11 mmol/L (10-20); BUN (Urea Nitrogen) 7 mg/dL (8.4-25.7); Bilirubin, Direct 0.3 mg/dL (0.1-0.3); Bilirubin, Total 0.4 mg/dL (0.2-1.2); Calc. Creatinine Clearance 96 mL/min (70-130); Calcium 7.6 mg/dL (7.8-10.44); Carbon Dioxide 22 mmol/L (23-31); Chloride 107 mmol/L (98-107); Estimated GFR-MDRD Greater than 90; Glucose 87 mg/dL (80-115); Potassium 3.7 mmol/L (3.5-5.1); Protein, Total 5.6 g/dL (5.8-8.1); Sodium 136 mmol/L (136-145)
[2019-03-26] MEDS: Mometasone/Formoterol 120 PUFF INHALER INH SCH (07:04)
[2019-03-26] MEDS: Cyclobenzaprine 10 MG TAB PO SCH ×2 (08:19→16:06)
[2019-03-26] MEDS: Atorvastatin Calcium 40 MG TAB PO SCH (08:19)
[2019-03-26] MEDS: Folic Acid 1 MG TAB PO SCH (08:19)
[2019-03-26] MEDS: Montelukast Sodium 10 mg Tablet PO SCH (08:20)
[2019-03-26] MEDS: guaiFENesin/DM ER PO SCH (08:20)
[2019-03-26] MEDS: predniSONE 20 MG TAB PO SCH (08:21)
[2019-03-26] MEDS: Lidocaine Patch Removal TOP SCH (08:21)
--- NOTE | 2019-03-26 08:30 | PDOC.HOSPP ---
- Subjective Encounter Date: 03/26/19 Encounter Time: 12:00 Subjective: Patient without complaint. Wants to go home. - Objective Vital Signs & Weight: Vital Signs (12 hours) Temp Pulse Resp BP Pulse Ox 03/26/19 08:17 98.1 F 99 16 113/68 96 03/26/19 07:02 91 16 97 03/26/19 04:00 98 F 95 18 117/70 98 Weight Admit Weight 115 lb 4.828 oz Weight 115 lb 4.828 oz I&O: 03/25/19 03/26/19 03/27/19 06:59 06:59 06:59 Intake Total 2265 960 Output Total 500 Balance 1765 960 Result Diagrams: 03/26/19 04:38 03/26/19 04:38 Hospitalist ROS - Review of Systems Constitutional: denies: fever, chills Respiratory: denies: cough, shortness of breath Cardiovascular: denies: chest pain, palpitations, orthopnea Gastrointestinal: denies: nausea, vomiting, abdominal pain - Medication Medications: Active Medications Generic Name Dose Route Start Last Admin Trade Name Freq PRN Reason Stop Dose Admin Acetaminophen 325 mg 03/25/19 11:25 03/25/19 11:47 Tylenol PO 325 mg Q6H PRN Administration Headache/Fever or Pain Albuterol/Ipratropium 3 ml 03/24/19 07:00 03/26/19 07:02 Duoneb NEB 3 ml QID-RT VALENCIA Administration Amitriptyline HCl 25 mg 03/24/19 21:00 03/25/19 20:04 Elavil PO Not Given HS VALENCIA Atorvastatin Calcium 80 mg 03/24/19 09:00 03/26/19 08:19 Lipitor PO 80 mg DAILY VALENCIA Administration Cyclobenzaprine HCl 5 mg 03/24/19 09:00 03/26/19 08:19 Flexeril PO 5 mg TID VALENCIA Administration Folic Acid 1 mg 03/24/19 09:00 03/26/19 08:19 Folvite PO 1 mg DAILY VALENCIA Administration Guaifenesin/Dextromethorphan 2 tab 03/24/19 09:00 03/26/19 08:20 Mucinex Dm PO 2 tab Q12HR VALENCIA Administration Lidocaine 1 patch 03/24/19 21:00 03/25/19 20:04 Lidoderm 5% Patch TD Not Given 2100 [facility] Miscellaneous Medication 1 each 03/25/19 09:00 03/26/19 08:21 Lidocaine Patch Removal TOP Not Given 0900 [facility] Mometasone Furoate/Formoterol Fumar 1 puff 03/24/19 06:30 03/26/19 07:04 Dulera 200 Mcg/5 Mcg Inhaler INH 1 puff BID-RT VALENCIA Administration Montelukast Sodium 10 mg 03/24/19 09:00 03/26/19 08:20 Singulair PO 10 mg DAILY VALENCIA Administration Prednisone 20 mg 03/24/19 09:00 03/26/19 08:21 Prednisone PO 20 mg DAILY VALENCIA Administration Ramipril 2.5 mg 03/24/19 09:00 03/26/19 08:20 Altace PO 2.5 mg DAILY VALENCIA Administration Sodium Chloride 10 ml 03/24/19 09:00 03/26/19 08:22 Flush - Normal Saline IVF 10 ml Q12HR VALENCIA Administration - Exam General Appearance: NAD Heart: RRR, no murmur, no gallops, no rubs Respiratory: CTAB, no wheezes, no rales, no ronchi Gastrointestinal: soft, non-tender, non-distended, normal bowel sounds Psychiatric: normal affect, normal behavior, A&O x 3 Hosp A/P (1) Pulmonary tuberculosis with cavitation Code(s): A15.0 - TUBERCULOSIS OF LUNG Status: Chronic (2) Hepatotoxicity Code(s): K71.9 - TOXIC LIVER DISEASE, UNSPECIFIED Status: Acute (3) COPD (chronic obstructive pulmonary disease) Status: Chronic - Plan PT/OT, out of bed/ambulate Awaiting transaminases to return to less than 2x upper limit of normal. AST now ok but ALT still up, needs to be less than 110. Recheck CMP in AM See Dr. Tai consult note for reintroduction regimen Pulmonary isolation while in hospital Dr. Tai talking with health department to see if can reintroduce meds outpatient
--- NOTE | 2019-03-26 10:21 | PRG ---
DATE OF SERVICE: 03/26/2019 SUBJECTIVE: The patient feels better had no acute complaints. OBJECTIVE: VITAL SIGNS: His temperature is 98.1, pulse 99, respirations 16, O2 saturation 96% on room air, blood pressure 113/68. HEENT: Unremarkable. NECK: No adenopathy or JVD. CHEST: Clear. CARDIAC: S1, S2. Regular. ABDOMEN: Soft. EXTREMITIES: No edema. LABORATORY DATA: His AST is down to 54, ALT 166. Serum bicarbonate 22, BUN 7, creatinine 0.5. ASSESSMENT: INH induced hepatitis. PLAN: His LFTs probably needs to come down for a day or two more before considering restarting his anti-tuberculin medications. I believe Dr. Tai' consultation from the gives perfect recommendations on how to reintroduce those drugs. Pulmonary has no further recommendations and we will sign off. Job ID: [id number]
[2019-03-26 16:22] VITALS: BP 127/59; TEMP 97.7
--- NOTE | 2019-03-27 10:48 | DIS ---
DATE OF ADMISSION: 03/23/2019 DATE OF DISCHARGE: 03/26/2019 PRIMARY CARE PHYSICIAN: Stepan Egan MD REASON FOR ADMISSION: Fevers, chills, nausea, and vomiting. DIAGNOSES AT DISCHARGE: 1. Hepatotoxicity from tuberculosis medications, improved. 2. Pulmonary tuberculosis with cavitation. 3. Chronic obstructive pulmonary disease. 4. Hepatitis C. 5. Hypertension. 6. Dyslipidemia. PROCEDURES: Ultrasound of right upper quadrant and gallbladder showing a contracted gallbladder due to nonfasting state, but no evidence of cholelithiasis or cholecystitis. CONSULTATIONS: 1. Pulmonology, Dr. Aleman. 2. Infectious Disease, Dr. Tai. SUMMARY OF HOSPITAL COURSE: This is a 64-year-old white male who came to the ER, complaints of fevers, chills, diarrhea, vomiting, and epigastric pain, starting about 1-1/2 weeks previously. He had Ia history of COPD and was actively treated for pulmonary tuberculosis for the last 2 months. The patient had significantly elevated liver function tests. He was admitted to the hospital. His tuberculosis medications were held. Dr. Aleman and Dr. Tai were consulted. It was determined that he had a hepatitis secondary to his TB medications. His symptoms resolved during hospitalization, and his liver function tests started coming down. Per Dr. Tai' consultation, the patient needs to have all his drugs discontinued until transaminases are less than two times the upper limit of normal; at which point, he will introduce rifampin and ethambutol, monitor those for 3 days and then consider the reintroduction of INH. He would keep the patient off pyrazinamide. If the patient tolerates the 3-drug regimen, then he will give that for 9 months. I did discuss the case with Dr. Tai on the day of discharge. Dr. Tai spoke with the [facility] and arranged to have the reintroduction medications started as an outpatient as his liver function tests are still slightly above double the normal range, though they are dropping significantly, and the patient was cleared to discharge home. DISCHARGE MANAGEMENT: Discharged to home. FOLLOWUP: Follow up with Dr. Egan as needed and with the [facility] as regularly scheduled. ACTIVITY: As tolerated. DIET: Regular diet. MEDICATIONS: The patient is to resume all home medications except for his TB drugs. 1. Amitriptyline 10 mg at night. 2. Atorvastatin 80 mg daily. 3. Symbicort 2 puffs inhaled twice a day. 4. Carisoprodol one tablet 3 times a day. 5. DuoNeb 4 times a day. 6. Lidocaine patch applied daily. 7. Singulair 10 mg daily. 8. Ramipril 2.5 mg daily. 9. Aspirin 81 mg daily. 10. Tessalon Perles three times a day as needed for cough. 11. Belbuca one film applied buccally b.i.d. as needed for pain. 12. Protonix 40 mg daily. Job ID: [id number]
== END 2019-03-26 17:30 | disposition home or self-care (01) | DRG 442 ==
LOC: ERS 11:15 → 2NO 21:21
PROVIDERS: ADMIT Hospitalist; ATTEND Hospitalist
DX: K71.6 Toxic liver disease with hepatitis, not elsewhere classified (principal); B18.1 Chronic viral hepatitis B without delta-agent; A15.0 Tuberculosis of lung; J44.9 Chronic obstructive pulmonary disease, unspecified; E86.0 Dehydration; E78.5 Hyperlipidemia, unspecified; Z87.891 Personal history of nicotine dependence; M54.9 Dorsalgia, unspecified; G89.29 Other chronic pain; E87.6 Hypokalemia; L27.0 Generalized skin eruption due to drugs and medicaments taken internally; T50.995A Adverse effect of other drugs, medicaments and biological substances, initial encounter; I25.10 Atherosclerotic heart disease of native coronary artery without angina pectoris
CPT/HCPCS: 36415; 71045; 76705; 80048; 80053; 80076; 81003; 82553; 83605; 83690; 83735; 83880; 84484; 85025; 87040; 87389; 93005; 94640; C9113; J0692; J1956; J2550; J3370; J3480; J3490; J7050; J7512; J7620; S0028

== ENCOUNTER 2019-04-08 11:45 | Emergency (ER) | payer MEDICARE, OTHER ==
[2019-04-08] MEDS ORDERED: HYDROcodone/Acetaminophen 10/325 mg Tablet ONE (12:03)
--- NOTE | 2019-04-08 12:23 | RAD ---
XR Hip Lt 2-3 View History: Fall Comparison: None. Findings: Linear radiopacity projects over the left thigh. No acute fracture. Femoral head Impression: Linear radiopaque foreign object projecting of the left femoral intertrochanteric region although may be extrinsic to the patient. No acute displaced fracture.
--- NOTE | 2019-04-08 13:18 | CT ---
CT Pelvis WO Con History: Fall. Hip pain. Comparison: Radiograph same day Findings: No linear radiopacities noted over the left hip. No pelvic sidewall hematoma. Moderate vasc ular calcifications. Posterior spinal fusion hardware visualized is intact. Obturator rings are intact. No SI joint widening. The femoral heads and necks are intact. No free flu id in the pelvis. Impression: 1. No acute fracture or malalignment. 2. Moderate left hip joint effusion without displaced fracture appreciated.
== END 2019-04-08 14:07 | disposition home or self-care (01) ==
LOC: ERS 11:45
DX: M25.452 Effusion, left hip (principal); W01.0XXA Fall on same level from slipping, tripping and stumbling without subsequent striking against object, initial encounter
CPT/HCPCS: 72192

== ENCOUNTER 2019-04-16 08:39 | Outpatient (CLI) | payer MEDICARE, MEDICAID ==
--- NOTE | 2019-04-16 09:55 | MRI ---
CERVICAL SPINE MRI WITHOUT CONTRAST: DATE: 04/16/2019. COMPARISON: 09/22/2009. HISTORY: Cervical radiculopathy. TECHNIQUE: Multiplanar multisequence MR imaging of the cervical spine without contrast. FINDINGS: The sagittal STIR imaging demonstrates no focal area of osseous marrow edema. There is mild anterolisthesis at C5-6 measuring 3 mm. There is mild anterolisthesis of C7 on T1 measu ring 2 mm. There is mild degenerative change at the atlantoaxial interspace. The craniocervical junction and cer vicothoracic junction is intact. C2-3: There is disc space narrowing with disc desiccation and mild disc bulge. No significant central canal stenosis. Left-sided facet and uncovertebral osteophyte formation noted with mild/moderate left neural foraminal stenosis. There is mild right neural foraminal stenosis. C3-4: There is disc desiccation. There is bilateral facet joint fusion. No significant central canal stenosis. Facet and uncovertebral osteophyte formation leads to moderate/severe bilateral neural foraminal stenosis, left greater than right. C4-5: There is disc space narrowing and disc desiccation with mild disc bulge partially effacing the ventral thecal sac and leading to a mild degree of central canal stenosis. There is prominent facet and uncovertebral osteophyte formation, left greater than right, with moderate right and severe left neural foraminal stenosis. C5-6: There is disc space narrowing with disc desiccation and mild disc bulge partially effacing the ventral thecal sac and leading to mild central canal stenosis. Bilateral facet and uncovertebral osteophyte formation noted with moderate/severe bilateral neural foraminal stenosis, left greater robbie n right. C6-7: There is disc space narrowing with disc desiccation and disc osteophyte complex effacing the ve ntral thecal sac and abutting the ventral aspect of the cervical cord with a mild/moderate degree of central canal stenosis. Anterior osteophyte formation. There is moderate/severe facet and uncovert ebral osteophyte formation with associated moderate/severe bilateral neural foraminal stenosis, right greater than left. C7-T1: There is disc space narrowing with disc desiccation. Minimal disc bulge with mild central katia l stenosis. Bilateral facet and uncovertebral osteophyte formation with mild/moderate bilateral neural foraminal stenosis, left greater than right. No focal area of abnormal signal intensity is identified within the cervical cord. When compared to t 2009 study the degree of central canal stenosis within the cervical spine has not significantly changed. Areas of bilateral neural foraminal stenosis have worsened at multiple levels when compared to the prior examination, which includes the C3-4, C4-5, and C5-6 levels. IMPRESSION: Multilevel cervical spine degenerative change as documented above. Transcribed Date/Time: 04/16/2019 10:12 AM
== END 2019-04-16 08:40 | disposition home or self-care (01) ==
LOC: BICMRI 08:39
PROVIDERS: ATTEND Family Medicine
DX: M47.22 Other spondylosis with radiculopathy, cervical region (principal)
CPT/HCPCS: 72141

== ENCOUNTER 2019-05-21 09:32 | Outpatient (CLI) | payer MEDICARE, MEDICAID ==
--- NOTE | 2019-05-21 11:33 | MRI ---
MRI OF LEFT KNEE PERFORMED WITHOUT CONTRAST ENHANCEMENT: Date: 05/21/2019 HISTORY: Patient complains of left knee pain for a couple of months after twisting it. No history of previous surgery. FINDINGS: The anterior cruciate ligament is somewhat thinned in appearance but appears intact. Posterior crucia te ligament is unremarkable. The lateral meniscus has a normal shape and appearance. Medial meniscus shows some edema change along the meniscal capsular junction of the body and posterio r horn, and there is some slight truncation to the free edge at the posterior horn/body junction johann on. There is also some very mild meniscal subluxation and moderate arthritic changes of the knee. The re is some Grade III-IV chondromalacia changes of the medial femoral condyle and some marrow edema ch genie also seen. The medial and lateral collateral ligaments and iliotibial band regions appear unremarkable. There is some Grade III-IV chondromalacia change in the medial facet of the patella, medial and later al patellar retinaculum, and quadriceps and patellar tendons are normal. There are some moderate arthritic changes of the medial compartment of the knee with articular cartil age loss of the medial femoral condyle. There does appear to be a small free edge tear of the posteri or horn/body junction region of the medial meniscus associated with this. There is also suggestion of some meniscal capsular strain with edema change along the meniscal capsular junction without any ob vious separation. There is mild meniscal subluxation of body of meniscus associated with these findin gs. IMPRESSION: 1. 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 2. Small Banerjee's cyst. POS: TPC
== END 2019-05-21 09:33 | disposition home or self-care (01) ==
LOC: BICMRI 09:32
PROVIDERS: ATTEND Orthopaedic Surgery
DX: S83.242A Other tear of medial meniscus, current injury, left knee, initial encounter (principal); M22.42 Chondromalacia patellae, left knee; M71.22 Synovial cyst of popliteal space [Baker], left knee

== ENCOUNTER 2019-06-07 06:50 | Day surgery (SDC) | payer MEDICARE, MEDICAID ==
[2019-06-06 12:45] VITALS: BMI 18.4
[2019-06-07 07:31] VITALS: BP 108/66; TEMP 99.2
[2019-06-07] MEDS ORDERED: Prevnar 13-Val Conj/PF 0.5 ML SYRINGE IM ONE (09:00)
--- NOTE | 2019-06-07 09:52 | CT ---
CT myelogram of thelumbar spine: 06/07/2019 COMPARISON:08/31/2013 HISTORY:Lower extremity radiculopathy, pain TECHNIQUE: Serial axial CT imaging at2.5 mm intervals from thelower thoracic spine through inferior a spect of sacrum with intrathecal contrast media. Coronal and sagittal reformatted imaging obtained. Findings:There is good opacification of the thecal sac following administration of intrathecal contra st media. There is multifocal atherosclerotic calcification of the abdominal aorta and the imaged arterial stru ctures of the pelvis. Bilateral L4, L5, and S1 pedicle screws are present. Intervertebral disc devices are present at L4-5 and L5-S1. There is prominent dextroscoliosis within the lumbar spine, measuring at least 25-30 degrees when measuring from superior endplate of L2 to inferior endplate of L5. No CT evidence of isela dware failure. T12-L1: There is disc space narrowing with mild disc bulge. There is bilateral facet hypertrophy. Mil d bilateral neural foraminal stenosis, right greater than left. L1-2: There is disc space narrowing with mild disc bulge and bilateral facet hypertrophy, left greate r than right. There is mild central canal stenosis/left lateral recess stenosis. There is mild left neural foraminal stenosis. L2-3: There is disc space narrowing with degenerative endplate change and vacuum disc formation as we ll as anterior osteophyte formation and a posterior disc osteophyte complex. There is bilateral facet hypertrophy, left greater than right. There is moderate/severe left neural foraminal stenosis a nd mild right neural foraminal stenosis. There is no significant central canal stenosis. Bilateral laminectomy changes are present. L3-4: There is disc space narrowing with degenerative endplate change, vacuum disc formation, and ant erior osteophyte formation. There is bilateral facet hypertrophy as well. Mild central canal stenosis/left lateral recess stenosis. There is mild right neural foraminal stenosis and moderate/sev ere left neural foraminal stenosis. L4-5: Bilateral facet hypertrophy. Bilateral mild/moderate neural foraminal stenosis. No significant central canal stenosis. L5-S1: Bilateral laminectomy changes are present. No central canal stenosis. Bilateral facet hypertro phy noted with mild/moderate bilateral neural foraminal stenosis. No worrisome lytic or blastic bone lesion. No acute fracture or evidence of dislocation. On the coronal reformatted imaging there is prominent left lateral osteophyte formation at the L2-3 a nd L3-4 levels. Impression:Postoperative and degenerative change within the lumbar spine as detailed above.
--- NOTE | 2019-06-07 10:20 | RAD ---
Lumbar spine myelogram: 06/07/2019 HISTORY: Back pain FINDINGS: Informed consent for lumbar spine myelogram obtained prior to the procedure. [employer] imaging demonstrates significant dextroscoliosis within the lumbar spine centered at the L3 lev el. Bilateral L4, L5, and S1 pedicle screws are present with vertically oriented interlocking rods. Intervertebral disc device present at the L4-5 and L5-S1 level. The patient was placed on the fluoroscopic table in the prone position and skin overlying the lower l umbar spine was prepped and draped in normal sterile fashion. Skin overlying the L4 level was anesthetized with 1% buffered lidocaine. With intermittent fluoroscop ic guidance, a 22-gauge spinal needle is advanced into the thecal sac and removal of the stylet yields clear cerebrospinal fluid. Subsequently, approximately 10 cc of iodinated contrast media was i njected, filling the thecal sac and outlining nerve roots of the cauda equina. Needle was removed and the patient was sent to the CT scanner for CT myelogram of lumbar spine. Patient tolerated the procedure well. Exposure data: 1.3 minutes of fluoroscopic time, 339.1 mcg/sq m IMPRESSION: Successful lumbar spine myelogram.
== END 2019-06-07 10:05 | disposition home or self-care (01) ==
LOC: RAD 06:50
PROVIDERS: ATTEND Specialist
DX: M96.1 Postlaminectomy syndrome, not elsewhere classified (principal); M48.061 Spinal stenosis, lumbar region without neurogenic claudication; M54.16 Radiculopathy, lumbar region; J43.9 Emphysema, unspecified; F17.210 Nicotine dependence, cigarettes, uncomplicated; I25.10 Atherosclerotic heart disease of native coronary artery without angina pectoris; Z79.82 Long term (current) use of aspirin; Z79.899 Other long term (current) drug therapy
CPT/HCPCS: 62304; 72132

== ENCOUNTER 2019-08-28 07:17 | Outpatient (CLI) | payer MEDICARE, MEDICAID, OTHER ==
[2019-08-28 14:35] LABS: Hemoglobin 12.5 g/dL (14.0-18.0); Mean Corpuscular HGB CONC 31.9 g/dL (32.0-36.0); Mean Corpuscular Hemoglobin 28.2 pg (27.0-31.0); Mean Corpuscular Volume 88.6 fL (78.0-98.0); Mean Platelet Volume 6.3 fL (7.4-10.4); Platelet Count 250 thou/uL (130-400); RBC Distribution Width 14.6 % (11.5-14.5); Red Blood Cell (RBC) Count 4.43 mill/uL (4.70-6.10); White Blood Cell (WBC) Count 9.1 thou/uL (4.8-10.8)
[2019-08-28 14:56] LABS: Anion Gap 12 mmol/L (10-20); BUN (Urea Nitrogen) 12 mg/dL (8.4-25.7); Calc. Creatinine Clearance 0 mL/min (70-130); Calcium 8.8 mg/dL (7.8-10.44); Carbon Dioxide 26 mmol/L (23-31); Chloride 106 mmol/L (98-107); Estimated GFR-MDRD Greater than 90; Glucose 86 mg/dL (80-115); Potassium 4.2 mmol/L (3.5-5.1); Sodium 140 mmol/L (136-145)
[2019-08-29 10:59] LABS: SARS-CoV-2 MS2 Positive; SARS-CoV-2 N Gene Negative; SARS-CoV-2 S Gene Negative; SARS-CoV-2 orf1ab Negative
== END 2019-08-28 07:18 | disposition home or self-care (01) ==
LOC: LABBT 07:17
PROVIDERS: ATTEND Orthopaedic Surgery
DX: Z01.818 Encounter for other preprocedural examination (principal); Z11.59 Encounter for screening for other viral diseases; G56.02 Carpal tunnel syndrome, left upper limb
CPT/HCPCS: 80048; 85027; 93005; U0003; 87635; 93010

== ENCOUNTER 2019-08-30 12:02 | Day surgery (SDC) | payer MEDICARE, MEDICAID ==
[2019-08-28 13:56] VITALS: BMI 17.8
[2019-08-30] MEDS ORDERED: Lidocaine 1% PF 5 ML VIAL ONE (13:29)
[2019-08-30] MEDS ORDERED: PROPOFOL 200 MG/20 ML VIAL ONE (13:29)
[2019-08-30] MEDS ORDERED: Dexamethasone 20 MG/5 ML VIAL ONE (13:29)
[2019-08-30] MEDS ORDERED: PHENYLEPHRINE-NS 100 MCG/ML 10 ML SYRINGE ONE (13:29)
[2019-08-30] MEDS ORDERED: Ondansetron PF 4 MG/2 ML Vial ONE (13:29)
[2019-08-30] MEDS ORDERED: Bupivacaine PF 0.5% 30 ML VIAL ONE (14:00)
[2019-08-30] MEDS ORDERED: Fentanyl 100 MCG/2 ML VIAL ONE (14:11)
--- NOTE | 2019-08-30 19:25 | OP ---
DATE OF PROCEDURE: 08/30/2019 PREOPERATIVE DIAGNOSIS: Left carpal tunnel syndrome. POSTOPERATIVE DIAGNOSIS: Left carpal tunnel syndrome. PROCEDURE PERFORMED: Left carpal tunnel release. ANESTHESIA: General. DESCRIPTION OF PROCEDURE: The patient was given preoperative IV antibiotics, taken to operating room, placed in supine position. Satisfactory general anesthesia was performed. The left upper extremity was sterilely prepped and draped in usual fashion. After exsanguination, tourniquet was raised to 250 mmHg. A longitudinal incision was made over the base of the hand, approximately 12 mm in length, directly over the carpal canal. Blunt and sharp dissection was made down through the palmar fascia, median nerve was identified, and using the [employer] carpal tunnel release instruments, the interval between the median nerve and the transverse carpal ligament was divided. The [employer] scalpel was used to cut the transverse carpal ligament. The median nerve was directly visualized and there was no constrictive tissue into the palm of the hand. There was a small amount of constrictive tissue going into the wrist, which was released. The median nerve was left completely intact and free of any pressure. The wound was irrigated and closed using 3-0 Rapide. The wound was then infiltrated with 0.5% Marcaine plain using 10 mL. Sterile dressing was applied. The tourniquet was released. The patient was awakened, extubated, and transferred to recovery room in stable condition. ESTIMATED BLOOD LOSS: None. COMPLICATIONS: None. TOURNIQUET TIME: 8 minutes. DISCHARGE MEDICATION: Dora 7.5 one every 6 hours as needed for pain, #40. FOLLOWUP: Follow up in my office next week. Job ID: [id number]
== END 2019-08-30 16:00 ==
LOC: SDC 12:02
PROVIDERS: ATTEND Orthopaedic Surgery
PROC: 01N50ZZ Release Median Nerve, Open Approach (ICD-10-PCS; principal; 2019-08-30)
DX: G56.02 Carpal tunnel syndrome, left upper limb (principal); I10 Essential (primary) hypertension; E78.5 Hyperlipidemia, unspecified; I25.10 Atherosclerotic heart disease of native coronary artery without angina pectoris; M19.90 Unspecified osteoarthritis, unspecified site; F17.210 Nicotine dependence, cigarettes, uncomplicated; J43.9 Emphysema, unspecified; Z79.51 Long term (current) use of inhaled steroids; Z79.82 Long term (current) use of aspirin; Z79.891 Long term (current) use of opiate analgesic; Z90.2 Acquired absence of lung [part of]; Z98.1 Arthrodesis status; Z89.022 Acquired absence of left finger(s)
CPT/HCPCS: 94640; J0690; J1100; J2001; J2405; J2704; J3010; J7620; S0020

== ENCOUNTER 2019-10-25 13:01 | Outpatient (CLI) | payer MEDICARE, MEDICAID ==
--- NOTE | 2019-10-25 13:37 | RAD ---
PA AND LATERAL VIEWS CHEST: HISTORY: Dyspnea. COMPARISON: 03/05/2019. FINDINGS: The heart size is normal. Chronic parenchymal changes and nodularity are again seen and remain stabl e. No lobar consolidation, pneumothoraces, or pleural effusions are seen. IMPRESSION: No acute process. POS: OFF
== END 2019-10-25 13:02 | disposition home or self-care (01) ==
LOC: BICRAD 13:01
PROVIDERS: ATTEND Internal Medicine Pulmonary Disease
DX: R06.00 Dyspnea, unspecified (principal)
CPT/HCPCS: 71046

== ENCOUNTER 2020-01-16 10:54 | Outpatient (CLI) | payer MEDICARE, MEDICAID ==
--- NOTE | 2020-01-16 12:05 | CT ---
CT CHEST WITHOUT CONTRAST: Low-dose screening protocol was followed with multiplanar reconstruction. INDICATION: Lung screening. History of over 30 years of smoking. Tobacco dependence. 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 COMPARISON: Comparison is made to a CT chest of 02/08/2019 which was performed as a CT angio study. FINDINGS: Lungs show hyperexpansion with flattened diaphragms and emphysematous change. There are bullous woodard ges prominent in the right lower lobe. There is right middle lobe bullous change as well. There is parenchymal stranding. RIGHT LUNG: There is a parenchymal nodular soft tissue nodule in the right apex which measures 2.2 cm AP dimensio n in the axial plane. This is at the site of a cavitary mass seen on 02/08/2019. There is no longer a cavitation present. There is a 2nd nodular density just inferior in the right upper lobe anterior ly measuring 8-10 mm. These 2 nodular densities appear to connect to one another on the sagittal sg ne. More inferiorly in the right lower lobe is a linear nodular opacity which is at the site of a previou sly noted linear nodule. This linear nodule opacity is approximately 3.0 cm length in the axial plan e and appears stable from the prior study. More inferiorly in the right upper lung is a reticulonodu lar process which his much less pronounced than on the prior study. There is a focal nodule right middle lobe which measures 1.8 cm AP dimension in the axial plane. Thi s nodule was present on the prior exam and is somewhat more defined today. There are numerous other nodular densities in the posterior right lower lobe measuring up to 1.0 cm a ssociated with parenchymal stranding and pleural thickening. This posterior right lower lobe process appears stable. In the left lung, there is an area of parenchymal stranding extending from the anterior pleural surfa ce with calcification which appears stable from the prior exam. On the prior exam, there was associa jenise infiltrate present which is no longer noted. There is a soft tissue nodular mass in the superior segment of the left lower lobe seen on image 71 a xial which measures 1.9 cm. This is at the site of a previously noted cavitary mass. Size remains s table. There is no longer cavitation present. Nonspecific mediastinal lymph nodes appear stable from the prior exam. Osseous structures unremarkab le with degenerative spine changes. IMPRESSION: 1. Chronic lung changes with significant emphysematous change and hyperexpansion as described above. 2. Numerous pulmonary nodules bilaterally as detailed above. Several of these nodules showed cavita ry component on the prior study. There is no longer cavitation present. On the prior exam, there wa s extensive reticulonodular process bilaterally which has improved on today's exam. Continued close followup is recommended. Recommend repeat noncontrast chest CT in 6 months to confirm stability. Findings are lung RADS 3, probably benign. Six-month followup recommended. POS: AGW
== END 2020-01-16 10:55 | disposition home or self-care (01) ==
LOC: BICCT 10:54
PROVIDERS: ATTEND Family Medicine
DX: Z12.2 Encounter for screening for malignant neoplasm of respiratory organs (principal); Z87.891 Personal history of nicotine dependence; R91.8 Other nonspecific abnormal finding of lung field
CPT/HCPCS: G0297

== ENCOUNTER 2020-04-15 12:22 | Outpatient (CLI) | payer MEDICARE, OTHER ==
--- NOTE | 2020-04-15 13:46 | RAD ---
XR Chest Pa Lat STANDARD History: Dyspnea Comparison: Radiograph September 2019 Findings: The partially calcified pleural nodules as well as dense intraparenchymal nodules are relat ively similar. No pneumothorax. No effusion. No acute osseous abnormality. Background lung hyperinflation. Impression: Similar appearance of the lungs. No evidence for pneumonia.
== END 2020-04-15 12:23 | disposition home or self-care (01) ==
LOC: BICRAD 12:22
PROVIDERS: ATTEND Internal Medicine Pulmonary Disease
DX: R06.00 Dyspnea, unspecified (principal)
CPT/HCPCS: 71046

== ENCOUNTER 2020-07-10 14:01 | Outpatient (CLI) | payer MEDICARE, MEDICAID ==
[2020-07-10 14:26] LABS: Estimated GFR-MDRD - POC Greater than 90
== END 2020-07-10 14:02 | disposition home or self-care (01) ==
LOC: BICCT 14:01
PROVIDERS: ATTEND Internal Medicine Pulmonary Disease
DX: R91.8 Other nonspecific abnormal finding of lung field (principal)
CPT/HCPCS: 71260; 82565